=== PATIENT | male | born 1955 | race Caucasian/White ===

== ENCOUNTER → 2019-03-29 11:45 | Outpatient (CLI) | payer MEDICARE, MEDICAID, SELFPAY ==
--- NOTE | 2019-03-29 11:57 | XR_ITS ---
PROCEDURE: XR ABDOMEN MIN 2V CLINICAL INDICATION: pain Left-sided abdominal pain COMPARISON: No exams were available for comparison FINDINGS: There is no free air within nonspecific abdominal gas pattern. There are multiple fractures of posterior right ribs favored to be subacute to chronic. There is lack of bony healing of some of the fractures. Dual electrode pacemaker is in place. Vascular calcifications are noted. IMPRESSION: Nonspecific gas pattern. Dictated by: Johnnie Avila 03/29/2019 14:29 Electronically signed by Johnnie Avila in [place] 03/29/2019 14:29
== END ==
PROVIDERS: PCP Nurse Practitioner Family; Visit Provider Nurse Practitioner Family
DX: R10.12 Left upper quadrant pain (principal); Z76.89 Persons encountering health services in other specified circumstances
CPT/HCPCS: 74019

== ENCOUNTER → 2019-04-04 08:03 | Outpatient (CLI) | payer MEDICARE, SELFPAY ==
--- NOTE | 2019-04-04 08:10 | US_ITS ---
PROCEDURE: US ABDOMEN COMPLETE CLINICAL INDICATION: luq pain Left upper quadrant pain COMPARISON: No exams were available for comparison FINDINGS: The exam is technically difficult due to patient's body habitus. PANCREAS: Poor visualization of the pancreas LIVER: No focal liver lesions demonstrated. Homogeneous echogenicity. No intrahepatic biliary ductal dilatation evident. There is appropriate direction of blood flow within a non dilated portal vein RIGHT KIDNEY: Unremarkable. Normal size and echogenicity. No hydronephrosis LEFT KIDNEY: Unremarkable. Normal size and echogenicity. No hydronephrosis GALLBLADDER: No gallstones, gallbladder wall thickening, pericholecystic fluid, or biliary dilatation. AORTA: No evidence of aneurysmal dilatation. SPLEEN: The spleen is not demonstrated ASCITES: None demonstrated. IMPRESSION: Very limited exam with poor demonstration of the organs due to body habitus and overlying bowel gas. There is poor visualization of the pancreas and the spleen is not demonstrated. No gross acute anomalies are evident. Consider CT for further evaluation Dictated by: Misbah Braun MD 04/04/2019 17:20 Electronically signed by Misbah Braun MD in [place] 04/04/2019 17:20
== END ==
PROVIDERS: PCP Nurse Practitioner Family; Visit Provider Emergency Medicine
DX: R10.12 Left upper quadrant pain (principal)
CPT/HCPCS: 76700

== ENCOUNTER → 2019-04-15 14:57 | Outpatient (CLI) | payer MEDICARE, SELFPAY ==
--- NOTE | 2019-04-15 14:58 | CT_ITS ---
PROCEDURE: CT ABDOMEN PELVIS WO CON CLINICAL INDICATION: LLQ pain, left-sided abdominal pain COMPARISON: No exams were available for comparison TECHNIQUE: Axial images obtained with sagittal and coronal reformats. All CT scans at the facility use one or more dose reduction, viz: automated exposure control, ma/kV adjustment per patient size (including targeted exams where dose is matched to indication, i.e. head), or iterative reconstruction technique. FINDINGS: LOWER THORAX: A 5 mm subpleural nodules present in the right lower lobe posterior laterally with some patchy density present anterior to this region adjacent to an old rib fracture which is ununited. There are other old rib fractures in the right lower hemithorax involving the right 11th, 10th, 9th, 8th, and 7th ribs. Coronary artery calcification is present. There is a small hiatal hernia. ABDOMEN & PELVIS: Artifact is present from cardiac pacemaker device. There is mild thickening of the distal esophagus with a small hiatal hernia noted. Gallbladder is contracted. The liver, spleen, adrenal glands, and pancreas have an unremarkable appearance. No renal or ureteral calculi or hydronephrosis. Vascular calcifications involve the kidneys. No intestinal obstruction or free air. No evidence of appendicitis or diverticulitis. There is mild thickening of the descending and sigmoid colon. This could be due to nondistention or colitis. There are scattered sigmoid diverticula. No acute bony findings. IMPRESSION: 1. Thickening of the descending and sigmoid colon which may be due to nondistention versus colitis. 2. Hiatal hernia with mild thickening of the distal esophagus which may implicate esophagitis. Upper endoscopy may confirm. 3. 5 mm right lower lobe nodule with atelectatic or fibrotic change and multiple old right-sided rib fractures. 4. Coronary artery disease Dictated by: Misbah Braun MD 04/16/2019 08:38 Electronically signed by Misbah Braun MD in [place] 04/16/2019 08:38
== END ==
PROVIDERS: PCP Nurse Practitioner Family; Visit Provider Emergency Medicine
DX: R10.32 Left lower quadrant pain (principal); R10.9 Unspecified abdominal pain
CPT/HCPCS: 74176

== ENCOUNTER → 2019-07-26 14:30 | Outpatient (CLI) | payer MEDICARE, SELFPAY ==
--- NOTE | 2019-07-26 14:38 | FL_ITS ---
PROCEDURE: FL BARIUM SWALLOW CLINICAL INDICATION: ESOPHAGEAL DYSPHAGIA COMPARISON: No exams were available for comparison TECHNIQUE: In the upright position the patient was observed to swallow barium in both the AP and lateral view. The cervical esophagus was examined under fluoroscopy with images obtained. The patient was then placed prone in the right anterior oblique position and was observed to swallow barium with Valsalva technique . FLUOROSCOPY TIME: 1 minutes 49 seconds FINDINGS: There is high-grade narrowing of the distal esophagus with irregularity of the mucosa. A malignant stricture is considered. The narrowing slightly decreases on delayed imaging. This area of narrowing measures approximately 5 cm in length there is no evidence of obstruction to liquid contrast at this time. There is a small hiatal hernia. There is a shelf like area of narrowing along the anterior aspect of the distal esophagus suspicious for neoplasm. In addition, there is some mucosal irregularity involving the mid aspect of the esophagus posteriorly which could be inflammatory or neoplastic. This is approximately 7 cm proximal to the area of narrowing distally. IMPRESSION: Irregular narrowing of the distal aspect of the esophagus with a shelf-like filling defect anteriorly and distally suspicious for neoplasm. There was not complete obstruction. In addition there is some mucosal irregularity involving the posterior aspect of the mid thoracic esophagus which could be due to an additional area of neoplasm. Endoscopy is suggested for further evaluation. The report was called to the primary care provider and the patient was instructed to return immediately for further instructions. Dictated by: Misbah Braun MD 07/26/2019 15:29 Electronically signed by Misbah Braun MD in [place] 07/26/2019 15:29
== END ==
PROVIDERS: PCP Nurse Practitioner Family; Visit Provider Nurse Practitioner Family
DX: R13.10 Dysphagia, unspecified (principal)
CPT/HCPCS: 74220

== ENCOUNTER → 2019-08-02 09:39 | Outpatient (CLI) | payer MEDICARE, SELFPAY ==
[2019-08-02 11:03] LABS: Coronavirus 19 IgG Antibody Negative (Negative); Coronavirus 19 IgM Antibody Negative (Negative)
== END ==
PROVIDERS: Visit Provider Internal Medicine Gastroenterology
DX: Z01.818 Encounter for other preprocedural examination (principal)
CPT/HCPCS: 36415; 86328

== ENCOUNTER 2019-08-05 12:22 | Day surgery (SDC) | payer MEDICARE, SELFPAY ==
--- NOTE | 2019-08-01 11:03 | SUR.PREOP ---
08/01/2019 @ 3685--PHONE CALL MADE TO PATIENT. PATIENT UNDERSTANDS THAT LAB WORK AND COVID TESTING NEEDS TO BE COMPLETED @ 0915 ON 08/02/2019. PATIENT UNDERSTANDS IF LAB WORK AND COVID-19 TESTS ARE NOT COMPLETED BY 12PM ON THAT DATE, THE SURGERY SCHEDULED WILL BE CANCELLED AND RESCHEDULED FOR ANOTHER TIME.
[2019-08-01 13:43] VITALS: BMI 27.8
[2019-08-05] VITALS (9 sets, daily range): BP systolic 99–159; BP diastolic 61–94; PULSE 67–82; RESP 18; TEMP 36.1–36.3; O2SAT 96–100
--- NOTE | 2019-08-05 13:53 | HMH.PROC ---
[facility] Procedure Note Procedure Note:: Upper Endoscopy Procedure Report: Esophagogastroduodenoscopy with cold biopsies and TTS balloon dilation Endoscopost: Naveen Corado II, MD Referring Physician: MARIAH Calero Date of Procedure: August 05, 2019 Equipment: Olympus GIF 180 standard upper endoscope Sedation: MAC sedation Indications: Mr. Li is a 63-year-old gentleman with the acute onset of dysphagia over the last 2 or 3 weeks. This is primarily to solid foods (breads and meats). He reports no heartburn or reflux. He has had minimal weight loss. He did have GERD years ago but none recently. The patient does smoke (2 packs per day x53 years) and beer (sixpack over a day). This is his first upper endoscopy. Procedure: Prior to the procedure, a history and physical exam was performed, and patient's medications and allergies were reviewed. The risks, benefits and alternatives of the sedation and procedure were discussed with the patient. All questions were answered and informed consent was obtained. The patient was brought to the procedure room. Patient identification and proposed procedure were verified by the physician and the nurse. The patient was placed in a left lateral decubitus position and the scope was passed under direct vision. Throughout the procedure, the patient's blood pressure, pulse, and oxygen saturations were monitored continuously. The upper GI endoscopy was accomplished without difficulty. The patient tolerated the procedure well. Findings: The scope was passed directly into the upper esophagus and advanced to the third portion of the duodenum. The post bulbar duodenum and duodenal bulb were normal with normal mucosa and conniventes. The scope was withdrawn through a normal duodenal bulb and pylorus into the stomach. There was some mild linear reactive gastropathy of the antrum. The remainder of the antrum, body and fundus of the stomach were grossly normal. Upon retroflexion there was a 2 to 3 cm hiatal hernia. The endoscope was then withdrawn into the esophagus. There was a friable and fungating mass lesion that was distal. The diaphragmatic hiatus was at 42-43 cm. The GE junction was at 40 cm with the mass beginning at the GE junction and extending more proximally. Multiple biopsies were taken from this region of distal esophagus at 39-40 cm. The scope was withdrawn further and there was obvious Painting's esophagus with the Z line/squamocolumnar junction at 30 cm from the incisors leaving a 9 or 10 cm segment of Painting's esophagus (Sumerduck classification C10M10). There was a slightly raised area of 1-1/2 cm near the Z line that was rounded and appeared to be plateaued (probable second area of more proximal adenocarcinoma arising within Painting's). There was no reflux esophagitis. The distal circumferential esophageal mass was biopsied and then this region was dilated to 18 mm/54 Maltese with a TTS hydrostatic balloon. The remainder of the proximal esophagus was normal from 30 cm from the incisors proximally to the cricopharyngeus. Impression: 1. Distal esophageal circumferential fungating malignant stricture arising with Painting's esophagus?strongly suspect esophageal adenocarcinoma status post dilation to 18 mm 2. Painting's esophagus 10 cm (long segment) (Sumerduck classification [id number]) Plan: The patient does have a larger esophageal mass lesion in the distal esophagus and may have multifocal dysplasia or even a second adenocarcinoma arising within a 10 cm segment of Painting's esophagus. I am going to plan CT imaging study today of the chest, abdomen and pelvis. I will follow-up the biopsies and discuss findings with patient and family. If this is operable/resectable, I am going to send him to thoracic surgery (Dr. Reuben Fox at the [facility]). If imaging studies show metastatic disease, I will send the patient to oncology. He will likely need gastrostomy feeding tube versus esopha
--- NOTE | 2019-08-05 13:53 | HMH.ANESCL ---
[facility] Anesthesia Checklist - Patient Identification Patient Identification: Arm Band, Verbal (Name & ) - Structural Data Admitted From: Home Planned Operative Procedure/s: EGD Consent for Planned Operative Procedure(s) Verified: Yes Verified Documents: Surgical Consent, History and Physical - NPO Status Verified Time NPO: 00:00 - Chart Verification Results Verified: None (serology) - Additional verifications Patient : No Anesthesia Reactions: No - Airway Assessment C-Spine Mobility Assessed: Yes TMJ Mobility Assessed: Yes Dentition: Poor Dentition - Neurological Assessment Level of Consciousness: Awake, Alert, Appropriate, Follows Commands Hx Seizures: No Numbness or tingling in extremities: No - Anesthesia Plan Anesthesia Risk discussed: Yes Anesthesia Plan: Verified ASA Class: III Anesthesia Type: MAC [facility] History I have reviewed the patient's past medical history: Yes Medical History: Reports:: Arrhythmia, Atrial Fibrillation, Coronary Artery Disease, Hyperlipidemia, Hypertension, Internal Pacemaker Denies:: Cancer, Diabetes Mellitus Type 1, Diabetes Mellitus Type 2, MRSA, Seizures *Have you ever received a pneumonia vaccine?: No *Have you received a flu vaccine this season?: No Anesthesia experience/problems:: none Other Surgeries: Yes: Cardiac Catheterization, Colonoscopy, Coronary Stent, Pacemaker Amputation: No Fractures: No - *Social History Educational Level: Completed High School Smoking Status: Current every day smoker Tobacco Type: cigarettes # Packs/Day (cigarettes): 2 Alcohol Intake: current Alcohol Intake Frequency:: 3 or more drinks per day Substance Use Type: denies use *Occupational Status:: disabled Housing: house Household Members: significant other *Travel in the last 8 weeks: None Family Hx:: Coronary Artery Disease, Heart Attack, Hyperlipidemia, Hypertension
--- NOTE | 2019-08-05 14:15 | CT_ITS ---
PROCEDURE: CT CHEST W CON CLINCAL INDICATION: Barretts esophagus Painting's esophagus, soft Jewel cancer COMPARISON: CT ABDOMEN PELVIS WO CON from 04/15/2019 CT ABDOMEN PELVIS W CON from 08/05/2019 TECHNIQUE: IV Contrast: 75ml Optiray 350 Axial images obtained with sagittal and coronal reformats. All CT scans at the facility use one or more dose reduction, viz: automated exposure control, ma/kV adjustment per patient size (including targeted exams where dose is matched to indication, i.e. head), or iterative reconstruction technique. FINDINGS: There is moderate thickening of the distal esophagus. This begins approximately 10 cm proximal to the GE junction involving the distal 1/2 of the thoracic esophagus with severe narrowing of the lumen and marked mucosal thickening. There is a small hiatal hernia. A small nodular density is present left lateral to the distal esophagus image 51 series 4 measuring 10 mm and may represent a small paraesophageal lymph node. There are few small gastroesophageal lymph nodes there are few small nodes in the subcarinal region. No hilar mass is evident. Artifact is present from cardiac pacemaker. Coronary artery calcifications and/or stents are noted. No obvious extra esophageal direct extension into the mediastinum however, the wall is somewhat obscured posteriorly and distally. There are centrilobular emphysematous changes with scattered areas of pulmonary fibrosis. A 7 mm subpleural opacity is present in the right lower lobe posterior laterally. This may be very slightly larger previously measuring 5 mm. There is a 5 mm nodule in the right lower lobe posteriorly image 64 series 4 previously 4 mm. There are multiple old right-sided rib fractures. There is an additional 6 mm noncalcified nodule in the right lower lobe posteriorly image 50 series 4 there is an irregular 6 mm nodule in the left apex. There is a subpleural 6 mm nodule in the left lower lobe image 30 series 4. A 4 mm nodules present in the superior segment of left lower lobe and may contain some faint calcification. There is a 3 mm nodule in the left upper lobe image 15 series 4. No effusions or infiltrates. No acute bony findings. There are old fractures of the right 9th a and 7th ribs. No bony destructive process apparent IMPRESSION: 1. Moderate wall thickening of the distal 1/2 of the thoracic esophagus suspicious for malignancy. Partially collapsed hiatal hernia with esophagitis would be included in the differential diagnosis. There however does appear to be moderate narrowing of the distal lumen of the esophagus just before the GE junction. This would correspond to the area of narrowing noted on the recent barium swallow. 2. Mildly prominent paraesophageal nodes in the posterior mediastinum which could represent local lalitha spread of malignancy. PET CT may provide further evaluation. 3. Noncalcified bilateral pulmonary nodules. There is a 7 mm nodule in the right lower lobe previously measuring 5 mm. These could represent metastatic foci. PET CT may provide further evaluation. Dictated by: Misbah Braun MD 08/05/2019 20:08 Electronically signed by Misbah Braun MD in [place] 08/05/2019 20:08
--- NOTE | 2019-08-05 14:15 | CT_ITS ---
PROCEDURE: CT ABDOMEN PELVIS W CON CLINICAL INDICATION: Barretts esophagus Esophageal cancer COMPARISON: CT ABDOMEN PELVIS WO CON from 04/15/2019 TECHNIQUE: IV Contrast: 75ML OPTIRAY 350 Oral Contrast 20ml Gastroview Axial images obtained with sagittal and coronal reformats. All CT scans at the facility use one or more dose reduction, viz: automated exposure control, ma/kV adjustment per patient size (including targeted exams where dose is matched to indication, i.e. head), or iterative reconstruction technique. FINDINGS: Please see chest CT report for esophageal description. There is moderate thickening of the mid and distal aspect of the esophagus with luminal narrowing distally suspicious for esophageal cancer with hiatal hernia. There is a small left paraesophageal lymph node in the posterior mediastinum on the left measuring approximately 1.5 x 0.8 cm. This node was barely perceptible on the previous exam. There are some small gastroesophageal lymph nodes present. The liver, gallbladder, spleen, right adrenal gland, and pancreas have an unremarkable appearance. The left adrenal gland is enlarged at 1.9 by 1.6 cm. There was only minimal nodularity of the left adrenal gland on the previous exam. The kidneys have an unremarkable appearance. No intestinal obstruction or free air. Unremarkable appendix. No pelvic mass or abnormal fluid collection. There is colonic diverticulosis but no evidence of diverticulitis. No bony destructive process is evident. Atherosclerotic changes are present at the ostium of the SMA and celiac artery. IMPRESSION: 1. Distal esophageal wall thickening with masslike appearance and luminal narrowing suspicious for esophageal malignancy with mildly prominent left para esophageal lymph node. 2. Enlarged left adrenal gland suspicious for metastatic disease. Consider PET-CT for further evaluation. 3. Please see chest CT report for lower chest findings. Dictated by: Misbah Braun MD 08/05/2019 20:19 Electronically signed by Misbah Braun MD in [place] 08/05/2019 20:19
[2019-08-05 14:58] LABS: Blood Urea Nitrogen 5 mg/dl (9-20); Creatinine Clearance Estimated 92 mL/min (50-200); Estimated Glomerular Filt Rate 113 ml/min (>60); GFR (African American) 137 ML/MIN (>60)
== END 2019-08-05 15:30 | disposition home or self-care (01) ==
LOC: OUTP 12:24
PROVIDERS: PCP Family Medicine; Visit Provider Internal Medicine Gastroenterology
PROC: 0DJ08ZZ Inspection of Upper Intestinal Tract, Via Natural or Artificial Opening Endoscopic (ICD-10-PCS; CPT 43235; principal; 2019-08-05 13:30)
DX: C15.5 Malignant neoplasm of lower third of esophagus (principal); K22.719 Barrett's esophagus with dysplasia, unspecified; I25.10 Atherosclerotic heart disease of native coronary artery without angina pectoris; I48.91 Unspecified atrial fibrillation; E78.5 Hyperlipidemia, unspecified; I10 Essential (primary) hypertension; Z72.0 Tobacco use; Z72.89 Other problems related to lifestyle; Z95.0 Presence of cardiac pacemaker; Z87.39 Personal history of other diseases of the musculoskeletal system and connective tissue; Z79.899 Other long term (current) drug therapy
CPT/HCPCS: 43239; 43249; 36415; 71260; 74177; 82565; 84520; 88305; C1726; Q9967

== ENCOUNTER → 2019-08-21 14:42 | Outpatient (CLI) | payer MEDICARE, SELFPAY ==
[2019-08-21 15:15] LABS: Basophils % 0.2 % (0.1-2.0); Eosinophils # 0.1 K/mm3 (0.0-0.4); Eosinophils % 0.7 % (0.1-12.0); Hematocrit 40.1 % (42.0-52.0); Hemoglobin 13.6 g/dL (14.1-18.0); Lymphocytes # 1.6 K/mm3 (0.7-4.5); Lymphocytes % 15.7 % (10-50); Mean Corpuscular HGB Conc 33.9 g/dL (31.8-35.4); Mean Corpuscular Hemoglobin 33.8 pg (27.0-31.2); Mean Corpuscular Volume 99.7 fl (80-94); Monocytes # 0.7 K/mm3 (0.1-1.0); Monocytes % 6.9 % (1.7-9.3); Neutrophils # 7.9 K/mm3 (1.8-7.8); Neutrophils % 76.5 % (37.0-80.0); Platelet Count 255 K/mm3 (142-424); Red Blood Count 4.02 M/mm3 (4.60-6.20); Red Cell Distribution Width 14.1 % (11.5-17.5); White Blood Count 10.3 K/mm3 (4.8-10.8)
[2019-08-21 15:44] LABS: Alanine Aminotransferase 21 U/L (12-78); Albumin Level 4.7 g/dl (3.5-5.0); Albumin/Globulin Ratio 1.5 (1.1-1.8); Alkaline Phosphatase 63 U/L (38-126); Anion Gap 17.5 mEq/L (5-15); Aspartate Amino Transferase 28 U/L (17-59); Bilirubin,Total 0.8 mg/dl (0.2-1.3); Blood Urea Nitrogen 7 mg/dl (9-20); Calcium 10.5 mg/dl (8.4-10.2); Carbon Dioxide 22 mmol/L (22.0-30.0); Chloride 100 mmol/L (98-107); Estimated Glomerular Filt Rate 97 ml/min (>60); GFR (African American) 117 ML/MIN (>60); Globulin 3.1 g/dL (1.3-3.2); Glucose 104 mg/dl (74-100); Potassium 4.5 mmoL/L (3.5-5.1); Sodium 135 mmol/L (136-145); Total Protein,Serum 7.8 g/dl (6.3-8.2)
[2019-08-21 15:45] LABS: INR 1.08 (0.9-1.1)
[2019-08-21 16:26] LABS: Coronavirus 19 IgG Antibody Negative (Negative); Coronavirus 19 IgM Antibody Negative (Negative)
== END ==
PROVIDERS: Visit Provider Surgery
DX: Z01.818 Encounter for other preprocedural examination (principal); C15.9 Malignant neoplasm of esophagus, unspecified; C79.9 Secondary malignant neoplasm of unspecified site; Z51.81 Encounter for therapeutic drug level monitoring
CPT/HCPCS: 36415; 80053; 85025; 85610; 86328

== ENCOUNTER 2019-08-23 08:38 | Day surgery (SDC) | payer MEDICARE, SELFPAY ==
[2019-08-22 15:06] VITALS: BMI 24.5
[2019-08-23] VITALS (13 sets, daily range): BP systolic 110–148; BP diastolic 58–102; PULSE 60–78; RESP 15–23; TEMP 36.4–36.7; O2SAT 95–98
--- NOTE | 2019-08-23 10:32 | HMH.ANESCL ---
[facility] Anesthesia Checklist - Patient Identification Patient Identification: Arm Band, Verbal (Name & ) - Structural Data Admitted From: Home Planned Operative Procedure/s: port a cath Consent for Planned Operative Procedure(s) Verified: Yes Verified Documents: History and Physical - NPO Status Verified Time NPO: 00:00 - Chart Verification Results Verified: CBC, BMP - Additional verifications Patient : No Anesthesia Reactions: No Hx Blood Transfusions: No Blood Transfusion Reaction: No Cephalosporin Allergy: No Previous Colonoscopy: No - Cardiovascular Assessment Heart Sounds: S1 & S2 Pulse Strength: Baseline Pulse Rhythm: Regular Peripheral Edema: No - Airway Assessment C-Spine Mobility Assessed: Yes TMJ Mobility Assessed: Yes Dentition: Poor Dentition - Neurological Assessment Level of Consciousness: Awake, Alert, Appropriate Hx Seizures: No Numbness or tingling in extremities: No - Anesthesia Plan Anesthesia Risk discussed: Yes Anesthesia Plan: Verified ASA Class: III Anesthesia Type: General [facility] History I have reviewed the patient's past medical history: Yes Medical History: Reports:: Arrhythmia, Atrial Fibrillation, Cancer (LUNG), Coronary Artery Disease, Hyperlipidemia, Hypertension, Internal Pacemaker Denies:: Diabetes Mellitus Type 1, Diabetes Mellitus Type 2, MRSA, Seizures *Have you ever received a pneumonia vaccine?: Yes *Have you received a flu vaccine this season?: No Other Medical History: Denies: Blood Transfusion Reaction Anesthesia experience/problems:: none Other Surgeries: Yes: Cardiac Catheterization, Colonoscopy, Coronary Stent, Pacemaker Amputation: No Fractures: No - *Social History Educational Level: Completed High School Smoking Status: Current every day smoker Tobacco Type: cigarettes # Packs/Day (cigarettes): 2 Alcohol Intake: never Alcohol Intake Frequency:: 3 or more drinks per day Substance Use Type: denies use *Occupational Status:: disabled Housing: house Household Members: significant other *Travel in the last 8 weeks: None Family Hx:: Cancer, Coronary Artery Disease
--- NOTE | 2019-08-23 10:57 | P.OP_ITS ---
Date of procedure: 08/23/19 Pre-op Diagnosis:: Metastatic esophageal adenocarcinoma Post-op Diagnosis:: Same Procedure performed:: Port-A-Cath placement (right subclavian vein access) Surgeon:: Marlon Molina MD SUPERVISOR TELEVISION CHASSIS REPAIR:: Paolo Morales Anesthesia: LMA Estimated blood loss (mL): 5 Operative findings:: Port flushed easily with heparinized saline Operative note:: After informed consent was obtained the patient was taken to the operating room and placed in the supine position. General anesthesia was induced and his chest and neck were prepped and draped in a sterile fashion. After infiltration local anesthetic a large-bore needle was utilized to access the right subclavian vein. The guidewire was placed in position. A transverse incision was then made at the guidewire exit site. The subcutaneous pocket for the port was then created with electrocautery and blunt dissection. The dilator with attached sheath was placed over the guidewire. Fluoroscopy was utilized to confirm appropriate advancement. The dilator and guidewire were removed. The port catheter was then placed through the sheath and confirmed fluoroscopically. The catheter was cut to appropriate length and secured to the port hub. The port hub was secured to the underlying fascia with interrupted Prolene. The deep subcutaneous tissue was reapproximated with interrupted Vicryl. Skin was then closed with 4-0 Monocryl in a running subcuticular fashion. The port was flushed with 10 mL of heparinized saline. Dressings were applied and the patient was transferred to recovery in stable condition. Chest x-ray is pending. Condition: stable Disposition: PACU Specimens:: None Complications:: no immediate
--- NOTE | 2019-08-23 11:01 | XR_ITS ---
PROCEDURE: XR CHEST PORTABLE CLINICAL HISTORY: port-a-cath placement COMPARISON: CT CHEST W CON from 08/05/2019 FINDINGS: The lung ritter are well expanded and appear clear of infiltrate. There is no pleural fluid. Cardiac size is normal and vascularity is normal. The right-sided Port-A-Cath is seen entering the right subclavian vein with the tip in the SVC above the right atrium. The left-sided cardiac pacemaker is noted with dual chamber electrodes both in good position. There is no pneumothorax. IMPRESSION: Satisfactory position of Port-A-Cath Dictated by: Dr. Jesse Lakhani MD 08/23/2019 11:[address] Jesse Lakhani MD in [place] 08/23/2019 11:35
--- NOTE | 2019-08-23 11:02 | HMH.ANESI ---
[facility] Anesthesia Record Part I Intake, IV Amount: 500 Estimated blood loss (mL): 10 Urine output (mL): 0 Blood Products used (#): none Blood Pressure: 122/60 SaO2: 96 Pulse Rate: 78 Respiratory Rate: 18 Temperature: 97.6 F Patient is:: Drowsy, Stable Stable to PACU at:: 11:00
--- NOTE | 2019-08-23 11:26 | FL_ITS ---
PROCEDURE: FL GUIDED CENTRAL LINE PLACEMT CLINICAL INDICATION: PORTACATH PLACEMENT IN OR COMPARISON: XR CHEST PORTABLE from 08/23/2019 FINDINGS: Fluoroscopy time: 1 minutes and 45 seconds Fluoro utilized for placement of a MediPort catheter from right subclavian approach. IMPRESSION: Fluoro guided catheter placement Dictated by: Misbah Braun MD 08/23/2019 16:12 Electronically signed by Misbah Braun MD in [place] 08/23/2019 16:12
--- NOTE | 2019-08-23 11:54 | P.PN_ITS ---
[facility] Anesthesia Record Part II Discharge Time: 11:30 Destination: Surgical Day Care (OP Surgery) PACU nurse assessment reviewed?: Yes Patient Condition:: Good Anesthesia Complications:: None Swallowing reflex intact?: Yes Cyanosis?: No Blood Pressure: 110/60 Pulse Rate: 64 Temperature: 97.7 F Mental Status: Alert & Oriented Pain level:: 0 Nausea and/or vomitting:: None, Nauseated Intake, IV Amount: 25
== END 2019-08-23 12:20 | disposition home or self-care (01) ==
LOC: OR 08:39
PROVIDERS: PCP Family Medicine; Visit Provider Surgery
PROC: (CPT 36561; principal; 2019-08-23 10:00)
DX: C15.9 Malignant neoplasm of esophagus, unspecified (principal); C34.90 Malignant neoplasm of unspecified part of unspecified bronchus or lung; I25.10 Atherosclerotic heart disease of native coronary artery without angina pectoris; I10 Essential (primary) hypertension; E78.5 Hyperlipidemia, unspecified; Z95.0 Presence of cardiac pacemaker; Z72.0 Tobacco use; E55.9 Vitamin D deficiency, unspecified; Z79.899 Other long term (current) drug therapy
CPT/HCPCS: 36561; 71045; 77001; 96374; C1788; J0131; J1642

== ENCOUNTER 2019-08-29 08:45 | Outpatient (CLI) | payer MEDICARE, SELFPAY ==
[2019-08-29] VITALS (7 sets, daily range): BP systolic 120–144; BP diastolic 70–86; PULSE 68–76; RESP 18; TEMP 36.6; O2SAT 97–98
== END 2019-08-29 12:40 | disposition home or self-care (01) ==
LOC: INF 09:10
PROVIDERS: Visit Provider Internal Medicine Medical Oncology
DX: Z51.11 Encounter for antineoplastic chemotherapy (principal); C15.9 Malignant neoplasm of esophagus, unspecified
CPT/HCPCS: 96413; 96415; J1642; J9263; Q0166

== ENCOUNTER 2019-09-19 08:39 | Outpatient (CLI) | payer MEDICARE, SELFPAY ==
[2019-09-19] VITALS (12 sets, daily range): BP systolic 111–150; BP diastolic 61–77; PULSE 60–84; RESP 18–20; O2SAT 99–100; BMI 25.9
[2019-09-19 09:00] LABS: Basophils % 0.2 % (0.1-2.0); Eosinophils # 0.1 K/mm3 (0.0-0.4); Hemoglobin 12.9 g/dL (14.1-18.0); Lymphocytes # 1.3 K/mm3 (0.7-4.5); Lymphocytes % 18.2 % (10-50); Mean Corpuscular Hemoglobin 35.5 pg (27.0-31.2); Mean Corpuscular Volume 104.6 fl (80-94); Mean Platelet Volume 8.3 fl (7.4-10.4); Monocytes # 0.6 K/mm3 (0.1-1.0); Monocytes % 8.3 % (1.7-9.3); Neutrophils % 71.2 % (37.0-80.0); Platelet Count 168 K/mm3 (142-424); Red Blood Count 3.63 M/mm3 (4.60-6.20); Red Cell Distribution Width 17.2 % (11.5-17.5)
[2019-09-19 09:06] LABS: Alanine Aminotransferase 27 U/L (12-78); Albumin/Globulin Ratio 1.2 (1.1-1.8); Alkaline Phosphatase 88 U/L (38-126); Anion Gap 11.1 mEq/L (5-15); Aspartate Amino Transferase 42 U/L (17-59); Bilirubin,Total 1.1 mg/dl (0.2-1.3); Blood Urea Nitrogen 4 mg/dl (9-20); Calcium 9.3 mg/dl (8.4-10.2); Carbon Dioxide 25 mmol/L (22.0-30.0); Chloride 103 mmol/L (98-107); Creatinine Clearance Estimated 84 mL/min (50-200); Estimated Glomerular Filt Rate 135 ml/min (>60); GFR (African American) 163 ML/MIN (>60); Globulin 3.3 g/dL (1.3-3.2); Glucose 81 mg/dl (74-100); Potassium 4.1 mmoL/L (3.5-5.1); Sodium 135 mmol/L (136-145); Total Protein,Serum 7.3 g/dl (6.3-8.2)
[2019-09-20 15:22] VITALS: BMI 25.9
== END 2019-09-19 13:45 | disposition home or self-care (01) ==
LOC: INF 08:39
PROVIDERS: Visit Provider Internal Medicine Medical Oncology
DX: C76.0 Malignant neoplasm of head, face and neck (principal); Z51.11 Encounter for antineoplastic chemotherapy
CPT/HCPCS: 80053; 85025; 96413; 96415; J1642; J9263; Q0166

== ENCOUNTER 2019-10-10 09:12 | Outpatient (CLI) | payer MEDICARE, SELFPAY ==
[2019-10-10] VITALS (8 sets, daily range): BP systolic 119–141; BP diastolic 65–75; PULSE 59–64; RESP 18; TEMP 36.6; O2SAT 94–96; BMI 25.2
[2019-10-10 09:27] LABS: Basophils % 0.2 % (0.1-2.0); Eosinophils # 0.1 K/mm3 (0.0-0.4); Eosinophils % 1.9 % (0.1-12.0); Hematocrit 39.3 % (42.0-52.0); Hemoglobin 13.3 g/dL (14.1-18.0); Lymphocytes # 1.5 K/mm3 (0.7-4.5); Mean Corpuscular HGB Conc 33.8 g/dL (31.8-35.4); Mean Corpuscular Hemoglobin 36.6 pg (27.0-31.2); Mean Corpuscular Volume 108.3 fl (80-94); Mean Platelet Volume 8.6 fl (7.4-10.4); Monocytes # 0.6 K/mm3 (0.1-1.0); Monocytes % 9.4 % (1.7-9.3); Neutrophils # 4.1 K/mm3 (1.8-7.8); Neutrophils % 64.5 % (37.0-80.0); Platelet Count 185 K/mm3 (142-424); Red Blood Count 3.63 M/mm3 (4.60-6.20); Red Cell Distribution Width 19.4 % (11.5-17.5); White Blood Count 6.4 K/mm3 (4.8-10.8)
[2019-10-10 09:37] LABS: Alanine Aminotransferase 26 U/L (12-78); Albumin/Globulin Ratio 1.2 (1.1-1.8); Alkaline Phosphatase 82 U/L (38-126); Anion Gap 13.1 mEq/L (5-15); Aspartate Amino Transferase 40 U/L (17-59); Bilirubin,Total 0.8 mg/dl (0.2-1.3); Blood Urea Nitrogen 3 mg/dl (9-20); Calcium 9.2 mg/dl (8.4-10.2); Carbon Dioxide 26 mmol/L (22.0-30.0); Chloride 100 mmol/L (98-107); Creatinine Clearance Estimated 82 mL/min (50-200); Estimated Glomerular Filt Rate 135 ml/min (>60); GFR (African American) 163 ML/MIN (>60); Globulin 3.3 g/dL (1.3-3.2); Glucose 92 mg/dl (74-100); Potassium 4.1 mmoL/L (3.5-5.1); Sodium 135 mmol/L (136-145); Total Protein,Serum 7.3 g/dl (6.3-8.2)
== END 2019-10-10 13:50 | disposition home or self-care (01) ==
LOC: INF 09:12
PROVIDERS: Visit Provider Internal Medicine Medical Oncology
DX: Z51.11 Encounter for antineoplastic chemotherapy (principal); C15.9 Malignant neoplasm of esophagus, unspecified
CPT/HCPCS: 80053; 85025; 96413; 96415; J1642; J9263; Q0166

== ENCOUNTER 2019-10-29 09:39 | Outpatient (CLI) | payer MEDICARE, SELFPAY ==
[2019-10-29 09:26] VITALS: BMI 24.0
--- NOTE | 2019-10-29 09:42 | CT_ITS ---
PROCEDURE: CT ABDOMEN PELVIS W CON CLINICAL INDICATION: ESOPHAGEAL CANCER Esophageal cancer recieving chemo every 2 weeks COMPARISON: CT CT ABDOMEN PELVIS W CON from 08/05/2019 TECHNIQUE: IV Contrast: 75ML OPTIRAY 350 Oral Contrast None Axial images obtained with sagittal and coronal reformats. All CT scans at the facility use one or more dose reduction, viz: automated exposure control, ma/kV adjustment per patient size (including targeted exams where dose is matched to indication, i.e. head), or iterative reconstruction technique. FINDINGS: There is mild diffuse fatty liver infiltration. The gallbladder is contracted. The spleen has an unremarkable appearance. There is a left adrenal nodule which measures 14 x 12 mm previously measuring 19 x 16 mm. The pancreas and right adrenal gland and kidneys are unremarkable. There remains thickening of the distal esophagus and at the GE junction. This appears slightly less bulky compared to the previous study. Previously there was a small left-sided paraesophageal lymph node which is does appear slightly smaller. No intestinal obstruction or free air. No evidence of appendicitis or diverticulitis. There is some mild thickening of the colon involving the splenic flexure, descending colon sigmoid colon, and rectum which could be due to nondistention or colitis. No pelvic mass or abnormal fluid collection apparent. No acute bony anomalies. IMPRESSION: 1. The left adrenal nodule is slightly smaller as is the small left paraesophageal lymph node. The thickened distal esophagus and GE junction also appears slightly less bulky. These findings would suggest improvement in esophageal neoplasm and metastasis 2. Fatty liver. 3. Possible colitis versus nondistention of the splenic flexure, descending colon sigmoid colon and rectum Dictated by: Misbah Braun MD 10/30/2019 09:28 Misbah Braun MD in [facility] 10/30/2019 09:28
[2019-10-29 09:44] LABS: Basophils % 0.3 % (0.1-2.0); Eosinophils # 0.1 K/mm3 (0.0-0.4); Eosinophils % 1.8 % (0.1-12.0); Hematocrit 37.4 % (42.0-52.0); Hemoglobin 12.9 g/dL (14.1-18.0); Lymphocytes # 1.4 K/mm3 (0.7-4.5); Lymphocytes % 18.4 % (10-50); Mean Corpuscular HGB Conc 34.4 g/dL (31.8-35.4); Mean Corpuscular Hemoglobin 38.1 pg (27.0-31.2); Mean Corpuscular Volume 110.9 fl (80-94); Mean Platelet Volume 8.6 fl (7.4-10.4); Monocytes # 0.9 K/mm3 (0.1-1.0); Monocytes % 11.5 % (1.7-9.3); Neutrophils # 5.1 K/mm3 (1.8-7.8); Platelet Count 180 K/mm3 (142-424); Red Blood Count 3.37 M/mm3 (4.60-6.20); White Blood Count 7.4 K/mm3 (4.8-10.8)
[2019-10-29 09:49] LABS: Chloride 104 mmol/L (98-107); Potassium 3.9 mmoL/L (3.5-5.1); Sodium 136 mmol/L (136-145)
[2019-10-29 09:52] LABS: Alanine Aminotransferase 28 U/L (12-78); Albumin Level 3.9 g/dl (3.5-5.0); Albumin/Globulin Ratio 1.1 (1.1-1.8); Alkaline Phosphatase 78 U/L (38-126); Anion Gap 11.9 mEq/L (5-15); Aspartate Amino Transferase 47 U/L (17-59); Bilirubin,Total 0.9 mg/dl (0.2-1.3); Blood Urea Nitrogen 5 mg/dl (9-20); Calcium 9.4 mg/dl (8.4-10.2); Carbon Dioxide 24 mmol/L (22.0-30.0); Creatinine Clearance Estimated 78 mL/min (50-200); Estimated Glomerular Filt Rate 135 ml/min (>60); GFR (African American) 163 ML/MIN (>60); Globulin 3.5 g/dL (1.3-3.2); Glucose 85 mg/dl (74-100); Total Protein,Serum 7.4 g/dl (6.3-8.2)
--- NOTE | 2019-10-29 10:08 | CT_ITS ---
PROCEDURE: CT CHEST W CON CLINCAL INDICATION: ESOPHAGEAL CANCER Esopheageal ca, on chemo COMPARISON: CT CT CHEST W CON from 08/05/2019 TECHNIQUE: IV Contrast: 75ml Optiray 350 Axial images obtained with sagittal and coronal reformats. All CT scans at the facility use one or more dose reduction, viz: automated exposure control, ma/kV adjustment per patient size (including targeted exams where dose is matched to indication, i.e. head), or iterative reconstruction technique. FINDINGS: There are a few small mediastinal lymph nodes in the pretracheal area and precarinal area which are not significantly changed. There remains thickening of the distal 1/2 of the esophagus to the GE junction. This appears somewhat less bulky at the GE junction. There are some small subcarinal lymph nodes which are slightly more prominent. These however are less than 1 cm in short axis. A small left para esophageal lymph node previously identified is not readily apparent on today's exam. There are centrilobular emphysematous changes with COPD. There are mild atelectatic changes in the lung bases. Previously there was a 6 mm nodule in the right lower lobe posteriorly. This area is somewhat obscured by the underlying atelectasis. In the left upper lobe there is a small irregular opacity measuring approximately 6 mm unchanged the faint 3 mm nodule in the left upper lobe posteriorly is unchanged. In the superior segment of the left lower lobe there is a 3 mm nodule which does appear to represent a calcified granuloma. In the left lower lobe posteriorly there was a 6 mm nodule which is not significantly changed in size but is less dense compared to the previous study. The 7 mm subpleural nodule in the right lower lobe posterior laterally is not readily apparent on today's exam.. 5 mm nodule in the right lower lobe posteriorly is also not identified. There are some adult 8 changes in this region however. There are multiple old right-sided rib fractures. No acute bony findings are evident. There is a bipolar pacemaker present from left subclavian approach and there is a right subclavian Port-A-Cath with tip in the region the SVC. IMPRESSION: 1. Continued thickening of the distal 1/2 of the esophagus and at the GE junction consistent with esophageal neoplasm which may be slightly less bulky. 2. The small left paraesophageal lymph node and several pulmonary nodules are less apparent than when compared to the previous exam suggesting some improvement in possible esophageal metastatic disease Dictated by: Misbah Braun MD 10/30/2019 08:42 Misbah Braun MD in [facility] 10/30/2019 08:42
== END 2019-10-29 10:32 | disposition home or self-care (01) ==
LOC: RAD 09:39
PROVIDERS: PCP Family Medicine; Visit Provider Internal Medicine Medical Oncology
DX: C15.9 Malignant neoplasm of esophagus, unspecified (principal)
CPT/HCPCS: 71260; 74177; 80053; 85025; J1642; Q9967

== ENCOUNTER 2019-11-14 09:56 | Outpatient (CLI) | payer MEDICARE, SELFPAY ==
[2019-11-14] VITALS (15 sets, daily range): BP systolic 129–154; BP diastolic 66–86; PULSE 59–66; RESP 18; TEMP 36.1; O2SAT 98; BMI 24.5
[2019-11-14 10:25] LABS: Basophils % 0.3 % (0.1-2.0); Eosinophils # 0.2 K/mm3 (0.0-0.4); Hematocrit 37.8 % (42.0-52.0); Lymphocytes # 1.4 K/mm3 (0.7-4.5); Lymphocytes % 17.5 % (10-50); Mean Corpuscular HGB Conc 34.3 g/dL (31.8-35.4); Mean Corpuscular Hemoglobin 39.1 pg (27.0-31.2); Mean Corpuscular Volume 113.8 fl (80-94); Mean Platelet Volume 8.9 fl (7.4-10.4); Monocytes # 0.8 K/mm3 (0.1-1.0); Monocytes % 10.3 % (1.7-9.3); Neutrophils # 5.5 K/mm3 (1.8-7.8); Neutrophils % 69.9 % (37.0-80.0); Platelet Count 148 K/mm3 (142-424); Red Blood Count 3.32 M/mm3 (4.60-6.20); Red Cell Distribution Width 19.5 % (11.5-17.5); White Blood Count 7.8 K/mm3 (4.8-10.8)
[2019-11-14 10:31] LABS: Chloride 103 mmol/L (98-107); Potassium 4.2 mmoL/L (3.5-5.1); Sodium 134 mmol/L (136-145)
[2019-11-14 10:34] LABS: Alanine Aminotransferase 28 U/L (12-78); Albumin Level 3.6 g/dl (3.5-5.0); Albumin/Globulin Ratio 1.1 (1.1-1.8); Alkaline Phosphatase 88 U/L (38-126); Anion Gap 10.2 mEq/L (5-15); Aspartate Amino Transferase 42 U/L (17-59); Bilirubin,Total 1.3 mg/dl (0.2-1.3); Blood Urea Nitrogen 4 mg/dl (9-20); Calcium 9.2 mg/dl (8.4-10.2); Carbon Dioxide 25 mmol/L (22.0-30.0); Creatinine Clearance Estimated 80 mL/min (50-200); Estimated Glomerular Filt Rate 135 ml/min (>60); GFR (African American) 163 ML/MIN (>60); Globulin 3.4 g/dL (1.3-3.2); Glucose 103 mg/dl (74-100)
== END 2019-11-14 15:30 | disposition home or self-care (01) ==
LOC: INF 09:56
PROVIDERS: Visit Provider Internal Medicine Medical Oncology
DX: Z51.11 Encounter for antineoplastic chemotherapy (principal); C15.9 Malignant neoplasm of esophagus, unspecified; E11.9 Type 2 diabetes mellitus without complications; E55.9 Vitamin D deficiency, unspecified; E78.5 Hyperlipidemia, unspecified; I25.10 Atherosclerotic heart disease of native coronary artery without angina pectoris
CPT/HCPCS: 80053; 85025; 96413; 96415; J1642; J9263; Q0166

== ENCOUNTER 2019-12-05 08:58 | Outpatient (CLI) | payer MEDICARE, SELFPAY ==
[2019-12-05] VITALS (14 sets, daily range): BP systolic 113–147; BP diastolic 57–84; PULSE 59–60; RESP 16–20; TEMP 36.7; O2SAT 97–98; BMI 24.5
[2019-12-05 09:21] LABS: Chloride 104 mmol/L (98-107)
[2019-12-05 09:22] LABS: Basophils % 0.2 % (0.1-2.0); Eosinophils # 0.2 K/mm3 (0.0-0.4); Hematocrit 37.8 % (42.0-52.0); Hemoglobin 13.2 g/dL (14.1-18.0); Lymphocytes # 1.2 K/mm3 (0.7-4.5); Lymphocytes % 17.6 % (10-50); Mean Corpuscular HGB Conc 34.8 g/dL (31.8-35.4); Mean Corpuscular Volume 115.2 fl (80-94); Mean Platelet Volume 8.3 fl (7.4-10.4); Monocytes # 0.8 K/mm3 (0.1-1.0); Monocytes % 11.7 % (1.7-9.3); Neutrophils # 4.5 K/mm3 (1.8-7.8); Neutrophils % 67.5 % (37.0-80.0); Platelet Count 138 K/mm3 (142-424); Potassium 4.1 mmoL/L (3.5-5.1); Red Blood Count 3.28 M/mm3 (4.60-6.20); Red Cell Distribution Width 19.6 % (11.5-17.5); Sodium 135 mmol/L (136-145); White Blood Count 6.7 K/mm3 (4.8-10.8)
[2019-12-05 09:23] LABS: Mean Corpuscular Hemoglobin 40.1 pg (27.0-31.2)
[2019-12-05 09:24] LABS: Alanine Aminotransferase 27 U/L (12-78); Aspartate Amino Transferase 42 U/L (17-59); Bilirubin,Total 1.1 mg/dl (0.2-1.3); Blood Urea Nitrogen 6 mg/dl (9-20); Creatinine Clearance Estimated 80 mL/min (50-200); Estimated Glomerular Filt Rate 135 ml/min (>60); GFR (African American) 163 ML/MIN (>60)
[2019-12-05 09:25] LABS: Albumin Level 3.7 g/dl (3.5-5.0); Albumin/Globulin Ratio 1.1 (1.1-1.8); Alkaline Phosphatase 81 U/L (38-126); Anion Gap 9.1 mEq/L (5-15); Calcium 9.2 mg/dl (8.4-10.2); Carbon Dioxide 26 mmol/L (22.0-30.0); Globulin 3.3 g/dL (1.3-3.2); Glucose 103 mg/dl (74-100)
== END 2019-12-05 14:08 | disposition home or self-care (01) ==
LOC: INF 08:58
PROVIDERS: Visit Provider Internal Medicine Medical Oncology
DX: Z51.11 Encounter for antineoplastic chemotherapy (principal); C15.4 Malignant neoplasm of middle third of esophagus
CPT/HCPCS: 80053; 85025; 96413; 96415; J1642; J9263; Q0166

== ENCOUNTER 2019-12-23 10:07 | Outpatient (CLI) | payer MEDICARE, SELFPAY ==
[2019-12-23 09:48] VITALS: BMI 23.9
[2019-12-23 10:22] LABS: Eosinophils # 0.1 K/mm3 (0.0-0.4); Hematocrit 38.9 % (42.0-52.0); Hemoglobin 12.9 g/dL (14.1-18.0); Lymphocytes # 1.2 K/mm3 (0.7-4.5); Lymphocytes % 17.6 % (10-50); Mean Corpuscular HGB Conc 33.1 g/dL (31.8-35.4); Mean Corpuscular Hemoglobin 38.9 pg (27.0-31.2); Mean Corpuscular Volume 117.3 fl (80-94); Mean Platelet Volume 8.5 fl (7.4-10.4); Monocytes # 0.9 K/mm3 (0.1-1.0); Monocytes % 13.6 % (1.7-9.3); Neutrophils # 4.6 K/mm3 (1.8-7.8); Neutrophils % 66.7 % (37.0-80.0); Platelet Count 129 K/mm3 (142-424); Red Blood Count 3.31 M/mm3 (4.60-6.20); Red Cell Distribution Width 18.7 % (11.5-17.5); White Blood Count 6.9 K/mm3 (4.8-10.8)
[2019-12-23 10:25] LABS: Chloride 97 mmol/L (98-107); Potassium 3.9 mmoL/L (3.5-5.1); Sodium 132 mmol/L (136-145)
[2019-12-23 10:27] LABS: Blood Urea Nitrogen 4 mg/dl (9-20); Creatinine Clearance Estimated 78 mL/min (50-200); Estimated Glomerular Filt Rate 135 ml/min (>60); GFR (African American) 163 ML/MIN (>60)
--- NOTE | 2019-12-23 10:27 | CT_ITS ---
PROCEDURE: CT ABDOMEN PELVIS W CON CLINICAL INDICATION: ESOPAGEAL CANCER Patient previously on chemotherapy, not clear from the current history sheet whether the patient still is on chemotherapy COMPARISON: CT CT ABDOMEN PELVIS W CON from 10/29/2019 TECHNIQUE: IV Contrast: 75ML OPTIRAY 350 Oral Contrast 20ml Gastroview Axial images obtained with sagittal and coronal reformats. All CT scans at the facility use one or more dose reduction, viz: automated exposure control, ma/kV adjustment per patient size (including targeted exams where dose is matched to indication, i.e. head), or iterative reconstruction technique. FINDINGS: Lower thorax: Possible very mild interstitial fibrotic changes in the subpleural zones of the lower lobes bilaterally. There is no acute infiltrate and there is no pleural fluid. Cardiac size is normal, there are pacemaker electrodes noted. ABDOMEN: Liver: The liver is normal in size and again shows diffuse hypodensity consistent with fatty infiltration. There are no focal lesions. Gallbladder: The gallbladder is partially contracted, similar in appearance and size to the previous study with no obvious gallstones or sludge. Pancreas: No masses or peripancreatic fluid collections. Spleen: unremarkable Adrenals: The hypodense left adrenal lesion is stable and unchanged from the previous exam. This likely is an adenoma. Kidneys/ureters: The kidneys are normal in size and show symmetrical function both appearing normal. ABDOMEN & PELVIS: Stomach bowel: The diffuse wall thickening of the distal esophagus is again noted and it appears basically stable when compared to the previous study. There is no definite abnormal paraesophageal adenopathy. The stomach and duodenal sweep appear normal. The small bowel is unremarkable. There is moderate oral contrast mixed with stool in the cecum and ascending colon. There is moderate stool in the descending and sigmoid colon. Peritoneum: No abnormal fluid collections. No obvious inflammatory changes. No free air. Lymph nodes: No enlarged lymph nodes apparent. Vasculature: There is marked diffuse arthrosclerotic calcification of the abdominal aorta and proximal common iliac arteries and bilateral superficial femoral arteries but there is no aneurysm. Bones: No acute fracture there are no definite lytic or blastic lesions identified. PELVIS: Reproductive: unremarkable Bladder: The urinary bladder is partially decompressed but otherwise appears normal. The prostate appears normal except for a couple of calcifications. Appendix: Normal in caliber and partially air-filled with no inflammatory changes. IMPRESSION: Stable diffuse slightly bulky wall thickening distal esophagus with no abnormal para esophageal adenopathy. Stable diffuse hepatic steatosis without evidence of metastatic disease. Dictated by: Dr. Jesse Lakhani MD 12/24/2019 09:31 Dr. Jesse Lakhani MD in [facility] 12/24/2019 09:31
--- NOTE | 2019-12-23 10:27 | CT_ITS ---
PROCEDURE: CT CHEST W CON CLINCAL INDICATION: ESOPHAGEAL CANCER Follow-up esophageal cancer COMPARISON: CT CT CHEST W CON from 10/29/[address] ABDOMEN PELVIS W CON from 12/23/2019 TECHNIQUE: IV Contrast: 75ml Optiray 350 Axial images obtained with sagittal and coronal reformats. All CT scans at the facility use one or more dose reduction, viz: automated exposure control, ma/kV adjustment per patient size (including targeted exams where dose is matched to indication, i.e. head), or iterative reconstruction technique. FINDINGS: HEART AND MEDIASTINAL STRUCTURES: This scattered small nodes are present in the mediastinum as before not significantly changed. There is mild diffuse thickening of the esophagus similar to the previous exam. This is greatest at the distal aspect of the esophagus at the GE junction. There are 2 small nodes anterior is to the mid aspect of the esophagus which may be slightly less prominent. LUNGS AND PLEURAL SPACES: COPD with emphysematous changes and scattered areas of scarring with pulmonary fibrosis. There has been interval development of some linear increased density in the left apex consistent with scarring or atelectatic change. There is a 5 mm nodule in the left upper lobe anteriorly which is not significantly changed. MediPort catheter is present from the right subclavian approach BONY STRUCTURES: Old right 7th 8th and 9th 10th rib fractures. No acute bony findings. UPPER ABDOMEN: Unremarkable. ADDITIONAL FINDINGS: No other significant abnormalities. IMPRESSION: Mild diffuse thickening of the esophagus greatest at the distal esophagus and GE junction not significantly changed. There are 2 paraesophageal lymph nodes anteriorly which appear very slightly smaller. No new findings evident. Stable pulmonary nodular opacities. Dictated by: Misbah Braun MD 12/24/2019 07:46 Misbah Braun MD in [place] 12/24/2019 07:46
[2019-12-23 10:28] LABS: Alanine Aminotransferase 27 U/L (12-78); Albumin Level 3.6 g/dl (3.5-5.0); Alkaline Phosphatase 100 U/L (38-126); Anion Gap 11.9 mEq/L (5-15); Aspartate Amino Transferase 48 U/L (17-59); Bilirubin,Total 1.1 mg/dl (0.2-1.3); Calcium 9.3 mg/dl (8.4-10.2); Carbon Dioxide 27 mmol/L (22.0-30.0); Globulin 3.6 g/dL (1.3-3.2); Glucose 93 mg/dl (74-100); Total Protein,Serum 7.2 g/dl (6.3-8.2)
== END 2019-12-23 10:50 | disposition home or self-care (01) ==
LOC: RAD 10:08
PROVIDERS: PCP Family Medicine; Visit Provider Internal Medicine Medical Oncology
DX: C15.9 Malignant neoplasm of esophagus, unspecified (principal)
CPT/HCPCS: 71260; 74177; 80053; 85025; J1642

== ENCOUNTER 2019-12-27 09:54 | Outpatient (CLI) | payer MEDICARE, SELFPAY ==
[2019-12-27] VITALS (8 sets, daily range): BP systolic 109–134; BP diastolic 62–74; PULSE 60–75; RESP 18; TEMP 36.4; O2SAT 97–98
== END 2019-12-27 14:34 | disposition home or self-care (01) ==
LOC: INF 09:54
PROVIDERS: Visit Provider Internal Medicine Medical Oncology
DX: Z51.11 Encounter for antineoplastic chemotherapy (principal); C15.9 Malignant neoplasm of esophagus, unspecified
CPT/HCPCS: 96413; 96415; J1642; J9263; Q0166

== ENCOUNTER 2020-02-06 09:49 | Outpatient (CLI) | payer MEDICARE, SELFPAY ==
[2020-02-06] VITALS (7 sets, daily range): BP systolic 117–130; BP diastolic 61–69; PULSE 64–69; RESP 18; TEMP 36.4; O2SAT 98–99; BMI 23.8
[2020-02-06 10:09] LABS: Basophils % 0.3 % (0.1-2.0); Eosinophils # 0.1 K/mm3 (0.0-0.4); Eosinophils % 1.7 % (0.1-12.0); Hematocrit 38.8 % (42.0-52.0); Hemoglobin 12.9 g/dL (14.1-18.0); Lymphocytes # 1.3 K/mm3 (0.7-4.5); Lymphocytes % 19.4 % (10-50); Mean Corpuscular HGB Conc 33.2 g/dL (31.8-35.4); Monocytes # 0.6 K/mm3 (0.1-1.0); Monocytes % 9.4 % (1.7-9.3); Neutrophils # 4.5 K/mm3 (1.8-7.8); Neutrophils % 69.3 % (37.0-80.0); Platelet Count 135 K/mm3 (142-424); Red Blood Count 3.13 M/mm3 (4.60-6.20); Red Cell Distribution Width 19.4 % (11.5-17.5); White Blood Count 6.5 K/mm3 (4.8-10.8)
[2020-02-06 10:15] LABS: Chloride 101 mmol/L (98-107); Sodium 133 mmol/L (136-145)
[2020-02-06 10:18] LABS: Alanine Aminotransferase 23 U/L (12-78); Albumin Level 3.8 g/dl (3.5-5.0); Albumin/Globulin Ratio 1.1 (1.1-1.8); Alkaline Phosphatase 102 U/L (38-126); Aspartate Amino Transferase 44 U/L (17-59); Blood Urea Nitrogen 5 mg/dl (9-20); Carbon Dioxide 27 mmol/L (22.0-30.0); Creatinine Clearance Estimated 77 mL/min (50-200); Estimated Glomerular Filt Rate 113 ml/min (>60); GFR (African American) 137 ML/MIN (>60); Globulin 3.5 g/dL (1.3-3.2); Total Protein,Serum 7.3 g/dl (6.3-8.2)
[2020-02-06 10:19] LABS: Calcium 9.2 mg/dl (8.4-10.2); Glucose 93 mg/dl (74-100)
[2020-02-06 10:24] LABS: Mean Corpuscular Hemoglobin 41.1 pg (27.0-31.2)
== END 2020-02-06 14:45 | disposition home or self-care (01) ==
LOC: INF 09:49
PROVIDERS: Visit Provider Internal Medicine Medical Oncology
DX: Z51.11 Encounter for antineoplastic chemotherapy (principal); C15.9 Malignant neoplasm of esophagus, unspecified
CPT/HCPCS: 80053; 85025; 96413; 96415; J1642; J9263; Q0166

== ENCOUNTER → 2020-03-04 10:05 | Outpatient (CLI) | payer MEDICARE, SELFPAY ==
--- NOTE | 2020-03-04 10:09 | XR_ITS ---
PROCEDURE: XR CERVICAL SPINE 5V CLINICAL INDICATION: NECK PAIN COMPARISON: Cervical spine 12/05/2012 Findings: There is straightening of normal curvature suggesting muscle spasm. C1 through C7 appear intact. There is possibly 2 mm anterior subluxation of C3 on C4 likely secondary to arthritic changes of the apophyseal joints this level. There is disc space narrowing at the C5-6 and C6-7 levels with mild anterior osteophytic spurring. These changes were seen previously but there has been interval progression of the disc space narrowing. There is mild neural foraminal narrowing at the C5-6 and C6-7 levels bilaterally secondary to degenerative changes and probable spurring of the uncinate joints. The prevertebral soft tissues are normal. The odontoid is partially obscured on the odontoid view but appears normal on the oblique views and lateral views. IMPRESSION: Interval progression of degenerative changes C5-6 and C6-7 with mild bilateral neural foraminal narrowing at these levels. Dictated by: Dr. Jesse Lakhani MD 03/04/2020 11:38 Dr. Jesse Lakhani MD in [facility] 03/04/2020 11:38
== END ==
PROVIDERS: PCP Family Medicine; Visit Provider Family Medicine
DX: M54.2 Cervicalgia (principal)
CPT/HCPCS: 72050

== ENCOUNTER 2020-03-12 09:35 | Outpatient (CLI) | payer MEDICARE, SELFPAY ==
[2020-03-12] VITALS (13 sets, daily range): BP systolic 123–149; BP diastolic 69–84; PULSE 57–72; RESP 16–18; TEMP 36.3; BMI 22.7
[2020-03-12 10:12] LABS: Basophils % 0.3 % (0.1-2.0); Eosinophils # 0.1 K/mm3 (0.0-0.4); Eosinophils % 0.9 % (0.1-12.0); Hematocrit 38.3 % (42.0-52.0); Lymphocytes # 1.5 K/mm3 (0.7-4.5); Lymphocytes % 22.4 % (10-50); Mean Corpuscular HGB Conc 31.3 g/dL (31.8-35.4); Mean Corpuscular Volume 124.5 fl (80-94); Mean Platelet Volume 9.2 fl (7.4-10.4); Monocytes # 0.5 K/mm3 (0.1-1.0); Monocytes % 7.7 % (1.7-9.3); Neutrophils # 4.7 K/mm3 (1.8-7.8); Neutrophils % 68.6 % (37.0-80.0); Platelet Count 174 K/mm3 (142-424); Red Blood Count 3.08 M/mm3 (4.60-6.20); Red Cell Distribution Width 17.6 % (11.5-17.5); White Blood Count 6.9 K/mm3 (4.8-10.8)
[2020-03-12 10:20] LABS: Alanine Aminotransferase 31 U/L (12-78); Albumin Level 3.7 g/dl (3.5-5.0); Alkaline Phosphatase 94 U/L (38-126); Aspartate Amino Transferase 45 U/L (17-59); Bilirubin,Total 0.8 mg/dl (0.2-1.3); Blood Urea Nitrogen 5 mg/dl (9-20); Calcium 9.7 mg/dl (8.4-10.2); Carbon Dioxide 29 mmol/L (22.0-30.0); Chloride 99 mmol/L (98-107); Creatinine Clearance Estimated 76 mL/min (50-200); Estimated Glomerular Filt Rate 113 ml/min (>60); GFR (African American) 137 ML/MIN (>60); Globulin 3.8 g/dL (1.3-3.2); Glucose 85 mg/dl (74-100); Sodium 134 mmol/L (136-145); Total Protein,Serum 7.5 g/dl (6.3-8.2)
== END 2020-03-12 15:40 | disposition home or self-care (01) ==
LOC: INF 09:38
PROVIDERS: Visit Provider Internal Medicine Medical Oncology
DX: Z51.11 Encounter for antineoplastic chemotherapy (principal); C15.9 Malignant neoplasm of esophagus, unspecified
CPT/HCPCS: 80053; 85025; 96413; 96415; J9263; Q0166

== ENCOUNTER 2020-03-31 09:23 | Outpatient (CLI) | payer MEDICARE, SELFPAY ==
[2020-03-31 09:15] VITALS: BMI 22.8
--- NOTE | 2020-03-31 09:31 | CT_ITS ---
PROCEDURE: CT ABDOMEN PELVIS WO/W CON CLINICAL INDICATION: ESOPHAGEAL CA F/u, Currently on chemo 75ml iso 370, redicat COMPARISON: CT CT ABDOMEN PELVIS WO CON from 04/15/[address] ABDOMEN PELVIS W CON from 12/23/2019 TECHNIQUE: IV Contrast: 75ML Isovue 370 Oral Contrast None Axial images obtained with sagittal and coronal reformats. All CT scans at the facility use one or more dose reduction, viz: automated exposure control, ma/kV adjustment per patient size (including targeted exams where dose is matched to indication, i.e. head), or iterative reconstruction technique. FINDINGS: There remains mild diffuse thickening of the distal esophagus and GE junction. The liver, spleen, and right adrenal gland have an unremarkable appearance. There is mild nodularity of the left adrenal gland which appear stable. Pancreas and the kidneys have an unremarkable appearance. Unremarkable appendix. No intestinal obstruction or free air. There is a mild amount of retained colonic feces. Scattered colonic diverticula but no evidence of diverticulitis. There is mild thickening of the urinary bladder wall which is nonspecific. No lytic or blastic changes of the bony structures. There is generalized atherosclerotic changes of the aortoiliac vessels. IMPRESSION: Overall stable CT appearance of the abdomen and pelvis. No change mild generalized thickening of the distal esophagus and GE junction. Dictated by: Misbah Braun MD 04/01/2020 12:23 Misbah Braun MD in [facility] 04/01/2020 12:23
--- NOTE | 2020-03-31 09:31 | CT_ITS ---
PROCEDURE: CT CHEST WO/W CON CLINCAL INDICATION: ESOPHAGEAL CA F/u Currently on chemo 75ml iso 370 redicat COMPARISON: CT CT CHEST W CON from 12/23/2019 TECHNIQUE: IV Contrast: 75ml Isovue 370 Axial images obtained with sagittal and coronal reformats. All CT scans at the facility use one or more dose reduction, viz: automated exposure control, ma/kV adjustment per patient size (including targeted exams where dose is matched to indication, i.e. head), or iterative reconstruction technique. FINDINGS: HEART AND MEDIASTINAL STRUCTURES: Cardiac pacemaker device is present from left subclavian approach. Coronary artery stent and or coronary artery calcification noted. There is concentric thickening the mid and lower aspect of the esophagus similar to the previous exam. There are few small subcarinal lymph nodes which are unchanged. Small nodes anterior to the mid aspect the esophagus are not significantly changed. LUNGS AND PLEURAL SPACES: COPD with pulmonary fibrotic changes are once again noted. There are scattered areas of scarring which are unchanged. No suspicious pulmonary nodules apparent. Previously noted atelectatic changes in the left upper lobe have improved. 5 mm left apical nodule unchanged. MediPort catheter remains in place. The BONY STRUCTURES: Old right-sided rib fractures once again noted. UPPER ABDOMEN: Unremarkable. ADDITIONAL FINDINGS: No other significant abnormalities. IMPRESSION: Overall no change in the appearance of the chest. There remains mild diffuse thickening of the esophagus greatest at the distal aspect at the GE junction not significantly changed. Dictated by: Misbah Braun MD 04/01/2020 12:01 Misbah Braun MD in [facility] 04/01/2020 12:01
[2020-03-31 09:37] LABS: Chloride 103 mmol/L (98-107); Potassium 3.7 mmoL/L (3.5-5.1); Sodium 134 mmol/L (136-145)
[2020-03-31 09:40] LABS: Alanine Aminotransferase 16 U/L (12-78); Albumin Level 3.7 g/dl (3.5-5.0); Alkaline Phosphatase 96 U/L (38-126); Anion Gap 10.7 mEq/L (5-15); Aspartate Amino Transferase 29 U/L (17-59); Bilirubin,Total 0.8 mg/dl (0.2-1.3); Blood Urea Nitrogen 6 mg/dl (9-20); Carbon Dioxide 24 mmol/L (22.0-30.0); Creatinine Clearance Estimated 74 mL/min (50-200); Estimated Glomerular Filt Rate 135 ml/min (>60); GFR (African American) 163 ML/MIN (>60); Globulin 3.8 g/dL (1.3-3.2); Total Protein,Serum 7.5 g/dl (6.3-8.2)
[2020-03-31 09:41] LABS: Calcium 9.4 mg/dl (8.4-10.2); Glucose 100 mg/dl (74-100)
== END 2020-03-31 10:38 | disposition home or self-care (01) ==
LOC: RAD 09:23
PROVIDERS: PCP Family Medicine; Visit Provider Internal Medicine Medical Oncology
DX: C15.9 Malignant neoplasm of esophagus, unspecified (principal); Z03.89 Encounter for observation for other suspected diseases and conditions ruled out
CPT/HCPCS: 71270; 74178; 80053; J1642; Q9967

== ENCOUNTER 2020-04-09 09:33 | Outpatient (CLI) | payer MEDICARE, SELFPAY ==
[2020-04-09 09:35] VITALS: BMI 22.9
[2020-04-09 09:54] LABS: Basophils % 0.3 % (0.1-2.0); Eosinophils # 0.1 K/mm3 (0.0-0.4); Eosinophils % 1.2 % (0.1-12.0); Hematocrit 36.4 % (42.0-52.0); Hemoglobin 11.5 g/dL (14.1-18.0); Lymphocytes # 1.9 K/mm3 (0.7-4.5); Lymphocytes % 22.7 % (10-50); Mean Corpuscular HGB Conc 31.6 g/dL (31.8-35.4); Mean Corpuscular Hemoglobin 38.4 pg (27.0-31.2); Mean Corpuscular Volume 121.8 fl (80-94); Mean Platelet Volume 8.7 fl (7.4-10.4); Monocytes # 0.8 K/mm3 (0.1-1.0); Monocytes % 10.4 % (1.7-9.3); Neutrophils # 5.3 K/mm3 (1.8-7.8); Neutrophils % 65.4 % (37.0-80.0); Platelet Count 166 K/mm3 (142-424); Red Blood Count 2.99 M/mm3 (4.60-6.20); Red Cell Distribution Width 16.3 % (11.5-17.5); White Blood Count 8.1 K/mm3 (4.8-10.8)
[2020-04-09 10:01] LABS: Chloride 111 mmol/L (98-107); Potassium 3.7 mmoL/L (3.5-5.1); Sodium 137 mmol/L (136-145)
[2020-04-09 10:04] LABS: Alanine Aminotransferase 18 U/L (12-78); Albumin Level 3.9 g/dl (3.5-5.0); Alkaline Phosphatase 79 U/L (38-126); Anion Gap 8.7 mEq/L (5-15); Aspartate Amino Transferase 35 U/L (17-59); Bilirubin,Total 0.8 mg/dl (0.2-1.3); Blood Urea Nitrogen 4 mg/dl (9-20); Calcium 9.8 mg/dl (8.4-10.2); Carbon Dioxide 21 mmol/L (22.0-30.0); Creatinine Clearance Estimated 75 mL/min (50-200); Estimated Glomerular Filt Rate 135 ml/min (>60); GFR (African American) 163 ML/MIN (>60); Globulin 4.1 g/dL (1.3-3.2); Glucose 100 mg/dl (74-100)
== END 2020-04-09 11:00 | disposition home or self-care (01) ==
LOC: INF 09:33
PROVIDERS: Visit Provider Internal Medicine Medical Oncology
DX: Z45.2 Encounter for adjustment and management of vascular access device (principal); C15.4 Malignant neoplasm of middle third of esophagus
CPT/HCPCS: 80053; 85025; J1642

== ENCOUNTER 2020-04-13 09:20 | Outpatient (CLI) | payer MEDICARE, SELFPAY ==
[2020-04-13] VITALS (7 sets, daily range): BP systolic 136–157; BP diastolic 69–88; PULSE 64–76; RESP 18; TEMP 36.7; O2SAT 99–100
== END 2020-04-13 12:58 | disposition home or self-care (01) ==
LOC: INF 09:20
PROVIDERS: PCP Family Medicine; Visit Provider Internal Medicine Medical Oncology
DX: Z51.11 Encounter for antineoplastic chemotherapy (principal); C15.4 Malignant neoplasm of middle third of esophagus
CPT/HCPCS: 96413; 96415; J1642; J9263; Q0166

== ENCOUNTER 2020-05-01 08:54 | Outpatient (CLI) | payer MEDICARE, SELFPAY ==
[2020-05-01 08:57] VITALS: BMI 22.1
[2020-05-01 09:20] LABS: Basophils % 0.4 % (0.1-2.0); Eosinophils # 0.1 K/mm3 (0.0-0.4); Eosinophils % 1.3 % (0.1-12.0); Hematocrit 33.7 % (42.0-52.0); Hemoglobin 10.6 g/dL (14.1-18.0); Lymphocytes # 1.9 K/mm3 (0.7-4.5); Lymphocytes % 26.9 % (10-50); Mean Corpuscular HGB Conc 31.5 g/dL (31.8-35.4); Mean Corpuscular Hemoglobin 39.2 pg (27.0-31.2); Mean Corpuscular Volume 124.5 fl (80-94); Mean Platelet Volume 8.4 fl (7.4-10.4); Monocytes # 0.6 K/mm3 (0.1-1.0); Monocytes % 8.8 % (1.7-9.3); Neutrophils # 4.5 K/mm3 (1.8-7.8); Neutrophils % 62.6 % (37.0-80.0); Platelet Count 172 K/mm3 (142-424); Red Cell Distribution Width 16.8 % (11.5-17.5); White Blood Count 7.2 K/mm3 (4.8-10.8)
[2020-05-01 09:25] LABS: Chloride 111 mmol/L (98-107); Potassium 3.7 mmoL/L (3.5-5.1); Sodium 138 mmol/L (136-145)
[2020-05-01 09:28] LABS: Alanine Aminotransferase 13 U/L (12-78); Albumin Level 3.6 g/dl (3.5-5.0); Alkaline Phosphatase 60 U/L (38-126); Anion Gap 6.7 mEq/L (5-15); Aspartate Amino Transferase 26 U/L (17-59); Bilirubin,Total 0.6 mg/dl (0.2-1.3); Blood Urea Nitrogen 5 mg/dl (9-20); Calcium 9.3 mg/dl (8.4-10.2); Carbon Dioxide 24 mmol/L (22.0-30.0); Creatinine Clearance Estimated 72 mL/min (50-200); Estimated Glomerular Filt Rate 166 ml/min (>60); GFR (African American) 201 ML/MIN (>60); Globulin 3.7 g/dL (1.3-3.2); Glucose 91 mg/dl (74-100); Total Protein,Serum 7.3 g/dl (6.3-8.2)
== END 2020-05-01 10:15 | disposition home or self-care (01) ==
LOC: INF 08:54
PROVIDERS: Visit Provider Internal Medicine Medical Oncology
DX: C15.9 Malignant neoplasm of esophagus, unspecified (principal); Z45.2 Encounter for adjustment and management of vascular access device
CPT/HCPCS: 80053; 85025; J1642

== ENCOUNTER → 2020-05-11 13:46 | Outpatient (CLI) | payer MEDICARE, SELFPAY ==
--- NOTE | 2020-05-11 13:52 | XR_ITS ---
PROCEDURE: XR RIBS RT MIN 3V W CXR1V CLINICAL INDICATION: FALL, RIB PAIN Right rib pain COMPARISON: CR XR CHEST PORTABLE from 08/23/[address] CHEST WO/W CON from 03/31/2020 FINDINGS: There are multiple old right-sided rib fractures involving the right 7th, 8th, 9th, and 10th ribs. No acute fracture is identified. There is a bipolar pacemaker present from left subclavian approach. MediPort catheter is also present from the right subclavian approach with tip in the region the SVC. There are chronic changes of the lungs with COPD and mild prominence of the interstitium. IMPRESSION: No acute findings. Dictated by: Misbah Braun MD 05/11/2020 15:02 Misbah Braun MD in [facility] 05/11/2020 15:02
== END ==
PROVIDERS: PCP Family Medicine; Visit Provider Family Medicine
DX: R07.81 Pleurodynia (principal); W19.XXXA Unspecified fall, initial encounter
CPT/HCPCS: 71101

== ENCOUNTER 2020-05-29 09:20 | Outpatient (CLI) | payer MEDICARE, SELFPAY ==
[2020-05-29] VITALS (15 sets, daily range): BP systolic 92–159; BP diastolic 59–80; PULSE 59–68; RESP 18–20; TEMP 36.3; O2SAT 100; BMI 21.7
[2020-05-29 10:01] LABS: Basophils % 0.2 % (0.1-2.0); Eosinophils # 0.1 K/mm3 (0.0-0.4); Eosinophils % 0.7 % (0.1-12.0); Hematocrit 33.2 % (42.0-52.0); Hemoglobin 10.8 g/dL (14.1-18.0); Lymphocytes # 2.2 K/mm3 (0.7-4.5); Lymphocytes % 26.2 % (10-50); Mean Corpuscular HGB Conc 32.5 g/dL (31.8-35.4); Mean Corpuscular Hemoglobin 37.4 pg (27.0-31.2); Mean Corpuscular Volume 115.3 fl (80-94); Mean Platelet Volume 8.3 fl (7.4-10.4); Monocytes # 0.7 K/mm3 (0.1-1.0); Monocytes % 8.3 % (1.7-9.3); Neutrophils # 5.4 K/mm3 (1.8-7.8); Neutrophils % 64.6 % (37.0-80.0); Platelet Count 217 K/mm3 (142-424); Red Blood Count 2.88 M/mm3 (4.60-6.20); Red Cell Distribution Width 15.1 % (11.5-17.5); White Blood Count 8.4 K/mm3 (4.8-10.8)
[2020-05-29 10:07] LABS: Alanine Aminotransferase 14 U/L (12-78); Albumin Level 4.1 g/dl (3.5-5.0); Albumin/Globulin Ratio 1.2 (1.1-1.8); Alkaline Phosphatase 70 U/L (38-126); Anion Gap 13.7 mEq/L (5-15); Aspartate Amino Transferase 28 U/L (17-59); Bilirubin,Total 0.8 mg/dl (0.2-1.3); Blood Urea Nitrogen 5 mg/dl (9-20); Calcium 9.6 mg/dl (8.4-10.2); Carbon Dioxide 19 mmol/L (22.0-30.0); Chloride 106 mmol/L (98-107); Creatinine Clearance Estimated 73 mL/min (50-200); Estimated Glomerular Filt Rate 135 ml/min (>60); GFR (African American) 163 ML/MIN (>60); Globulin 3.3 g/dL (1.3-3.2); Glucose 91 mg/dl (74-100); Potassium 3.7 mmoL/L (3.5-5.1); Sodium 135 mmol/L (136-145); Total Protein,Serum 7.4 g/dl (6.3-8.2)
[2020-05-29 10:37] LABS: Thyroid Stimulating Hormone 2.44 uIU/mL (0.465-4.68)
== END 2020-05-29 15:00 | disposition home or self-care (01) ==
LOC: INF 09:29
PROVIDERS: Visit Provider Internal Medicine Medical Oncology
DX: Z51.11 Encounter for antineoplastic chemotherapy (principal); C15.9 Malignant neoplasm of esophagus, unspecified; I51.7 Cardiomegaly; I35.8 Other nonrheumatic aortic valve disorders; I50.30 Unspecified diastolic (congestive) heart failure
CPT/HCPCS: 36415; 80053; 82533; 84443; 85025; 96413; 96415; J1642; J9263; Q0166

== ENCOUNTER 2020-06-18 09:11 | Outpatient (CLI) | payer MEDICARE, SELFPAY ==
[2020-06-18] VITALS (13 sets, daily range): BP systolic 92–120; BP diastolic 51–79; PULSE 60–82; RESP 18; TEMP 36.4; O2SAT 100; BMI 21.9
[2020-06-18 09:26] LABS: Basophils % 0.3 % (0.1-2.0); Eosinophils # 0.1 K/mm3 (0.0-0.4); Eosinophils % 1.4 % (0.1-12.0); Hematocrit 32.1 % (42.0-52.0); Hemoglobin 10.7 g/dL (14.1-18.0); Lymphocytes # 2.1 K/mm3 (0.7-4.5); Lymphocytes % 29.4 % (10-50); Mean Corpuscular HGB Conc 33.3 g/dL (31.8-35.4); Mean Corpuscular Hemoglobin 37.6 pg (27.0-31.2); Mean Corpuscular Volume 112.7 fl (80-94); Mean Platelet Volume 8.2 fl (7.4-10.4); Monocytes # 0.6 K/mm3 (0.1-1.0); Neutrophils # 4.3 K/mm3 (1.8-7.8); Platelet Count 199 K/mm3 (142-424); Red Blood Count 2.85 M/mm3 (4.60-6.20); Red Cell Distribution Width 15.9 % (11.5-17.5); White Blood Count 7.2 K/mm3 (4.8-10.8)
[2020-06-18 09:30] LABS: Chloride 108 mmol/L (98-107); Sodium 137 mmol/L (136-145)
[2020-06-18 09:31] LABS: Potassium 3.9 mmoL/L (3.5-5.1)
[2020-06-18 09:33] LABS: Alanine Aminotransferase 13 U/L (12-78); Albumin/Globulin Ratio 1.2 (1.1-1.8); Alkaline Phosphatase 63 U/L (38-126); Anion Gap 12.9 mEq/L (5-15); Aspartate Amino Transferase 23 U/L (17-59); Bilirubin,Total 0.9 mg/dl (0.2-1.3); Blood Urea Nitrogen 8 mg/dl (9-20); Carbon Dioxide 20 mmol/L (22.0-30.0); Creatinine Clearance Estimated 73 mL/min (50-200); Estimated Glomerular Filt Rate 135 ml/min (>60); GFR (African American) 163 ML/MIN (>60); Globulin 3.3 g/dL (1.3-3.2); Total Protein,Serum 7.3 g/dl (6.3-8.2)
[2020-06-18 09:34] LABS: Calcium 9.4 mg/dl (8.4-10.2); Glucose 93 mg/dl (74-100)
== END 2020-06-18 14:27 | disposition home or self-care (01) ==
LOC: INF 09:11
PROVIDERS: Visit Provider Internal Medicine Medical Oncology
DX: Z51.11 Encounter for antineoplastic chemotherapy (principal); C15.9 Malignant neoplasm of esophagus, unspecified
CPT/HCPCS: 80053; 85025; 96413; 96415; J1642; J9263; Q0166

== ENCOUNTER 2020-07-06 10:00 | Outpatient (CLI) | payer MEDICARE, SELFPAY ==
[2020-07-06 09:47] VITALS: BMI 22.6
--- NOTE | 2020-07-06 10:03 | CT_ITS ---
PROCEDURE: CT CHEST W CON CLINCAL INDICATION: ESOPHAGEAL CANCER Follow up Currently on chemo COMPARISON: CT CT CHEST WO/W CON from 03/31/2020 TECHNIQUE: IV Contrast: 75ml Isovue 370 Axial images obtained with sagittal and coronal reformats. All CT scans at the facility use one or more dose reduction, viz: automated exposure control, ma/kV adjustment per patient size (including targeted exams where dose is matched to indication, i.e. head), or iterative reconstruction technique. FINDINGS: HEART AND MEDIASTINAL STRUCTURES: There remains a few mildly prominent mediastinal lymph nodes the largest in the subcarinal region at 1.9 x 1 cm not significantly changed. There remains mild diffuse thickening of the mid distal aspect of the esophagus also not significantly changed. There is mild diffuse coronary artery calcification and/or stents noted. No evidence of aortic aneurysm or central pulmonary embolus. LUNGS AND PLEURAL SPACES: COPD with paraseptal emphysema and pulmonary fibrotic changes with scattered areas of scarring. No suspicious pulmonary nodules effusions or infiltrates. No change 5 mm left apical nodule BONY STRUCTURES: Old right 10th 9th 8th and 7th rib fractures. No bony destructive process apparent. UPPER ABDOMEN: See abdomen report ADDITIONAL FINDINGS: No other significant abnormalities. IMPRESSION: Overall stable CT appearance of the chest. No change mild diffuse esophageal thickening with mildly prominent mediastinal lymph nodes Pulmonary fibrosis with COPD and paraseptal emphysema. Dictated by: Misbah Braun MD 07/07/2020 09:44 Misbah Braun MD in [facility] 07/07/2020 09:44
--- NOTE | 2020-07-06 10:03 | CT_ITS ---
PROCEDURE: CT ABDOMEN PELVIS W CON CLINICAL INDICATION: ESOPHAGEAL CANCER Follow up Currently on chemo COMPARISON: CT CT ABDOMEN PELVIS WO CON from 04/15/[address] ABDOMEN PELVIS WO/W CON from 03/31/2020 TECHNIQUE: IV Contrast: 75ML Isovue 370 Oral Contrast None Axial images obtained with sagittal and coronal reformats. All CT scans at the facility use one or more dose reduction, viz: automated exposure control, ma/kV adjustment per patient size (including targeted exams where dose is matched to indication, i.e. head), or iterative reconstruction technique. FINDINGS: Mild fatty liver. No focal liver lesion identified. There is mild nodularity in the fundus of the is gallbladder. This area measures approximately 9 mm and may be better evaluated with gallbladder ultrasound. There remains thickening of the distal esophagus and GE junction. The spleen has an unremarkable appearance. There is a left adrenal nodule which is slightly more prominent compared to the previous exam measuring 16 x 16 mm previously measuring approximately 13 x 13 mm. There is heterogeneous enhancement of this nodule. This is suspicious for metastatic focus. The right adrenal gland has an unremarkable appearance. The pancreas appears unremarkable. No renal mass apparent. There is a calcification along the lower pole of the left kidney possibly an arterial calcification however nonobstructing stone is also considered measuring 4-5 mm. No hydronephrosis. No ureteral calculi. No evidence of appendicitis. There is colonic diverticulosis but no evidence of diverticulitis. Calcific plaque is present at the ostium of the celiac and the SMA. No bony destructive process. No lytic or blastic lesions apparent. IMPRESSION: 1. Persistent thickening of the distal esophagus and GE junction not significantly changed. 2. Left adrenal nodule which appears slightly larger with some heterogeneous enhancement suspicious for metastatic focus. 3. Mild nodularity of the fundus of the gallbladder. Consider ultrasound for further evaluation. Dictated by: Misbah Braun MD 07/07/2020 17:41 Misbah Braun MD in [place] 07/07/2020 17:41
[2020-07-06 10:10] LABS: Basophils % 0.2 % (0.1-2.0); Eosinophils # 0.1 K/mm3 (0.0-0.4); Eosinophils % 1.2 % (0.1-12.0); Hematocrit 30.8 % (42.0-52.0); Hemoglobin 10.4 g/dL (14.1-18.0); Lymphocytes # 2.2 K/mm3 (0.7-4.5); Lymphocytes % 28.1 % (10-50); Mean Corpuscular HGB Conc 33.8 g/dL (31.8-35.4); Mean Corpuscular Hemoglobin 38.5 pg (27.0-31.2); Mean Corpuscular Volume 114.2 fl (80-94); Mean Platelet Volume 7.9 fl (7.4-10.4); Monocytes # 0.7 K/mm3 (0.1-1.0); Monocytes % 9.1 % (1.7-9.3); Neutrophils # 4.9 K/mm3 (1.8-7.8); Neutrophils % 61.4 % (37.0-80.0); Platelet Count 174 K/mm3 (142-424); Red Cell Distribution Width 15.7 % (11.5-17.5); White Blood Count 7.9 K/mm3 (4.8-10.8)
[2020-07-06 10:25] LABS: Alanine Aminotransferase 12 U/L (12-78); Albumin Level 4.1 g/dl (3.5-5.0); Albumin/Globulin Ratio 1.2 (1.1-1.8); Alkaline Phosphatase 56 U/L (38-126); Anion Gap 9.9 mEq/L (5-15); Aspartate Amino Transferase 24 U/L (17-59); Bilirubin,Total 0.8 mg/dl (0.2-1.3); Blood Urea Nitrogen 5 mg/dl (9-20); Calcium 9.3 mg/dl (8.4-10.2); Carbon Dioxide 22 mmol/L (22.0-30.0); Chloride 108 mmol/L (98-107); Creatinine Clearance Estimated 73 mL/min (50-200); Estimated Glomerular Filt Rate 135 ml/min (>60); GFR (African American) 163 ML/MIN (>60); Globulin 3.4 g/dL (1.3-3.2); Glucose 85 mg/dl (74-100); Potassium 3.9 mmoL/L (3.5-5.1); Sodium 136 mmol/L (136-145); Total Protein,Serum 7.5 g/dl (6.3-8.2)
== END 2020-07-06 10:50 | disposition home or self-care (01) ==
LOC: RAD 10:00
PROVIDERS: PCP Family Medicine; Visit Provider Internal Medicine Medical Oncology
DX: C15.9 Malignant neoplasm of esophagus, unspecified (principal); Z03.89 Encounter for observation for other suspected diseases and conditions ruled out
CPT/HCPCS: 71260; 74177; 80053; 85025; J1642; Q9967

== ENCOUNTER 2020-07-09 09:25 | Outpatient (CLI) | payer MEDICARE, SELFPAY ==
[2020-07-09] VITALS (13 sets, daily range): BP systolic 115–161; BP diastolic 63–90; PULSE 61–74; RESP 18; TEMP 36.3; O2SAT 99
== END 2020-07-09 13:35 | disposition home or self-care (01) ==
LOC: INF 09:30
PROVIDERS: Visit Provider Internal Medicine Medical Oncology
DX: Z51.11 Encounter for antineoplastic chemotherapy (principal); C15.9 Malignant neoplasm of esophagus, unspecified
CPT/HCPCS: 96413; 96415; J1642; J9263; Q0166

== ENCOUNTER 2020-07-30 08:37 | Outpatient (CLI) | payer MEDICARE, SELFPAY ==
[2020-07-30] VITALS (13 sets, daily range): BP systolic 85–131; BP diastolic 37–78; PULSE 61–77; RESP 16–18; TEMP 36.2; BMI 22.5
[2020-07-30 09:10] LABS: Basophils % 0.3 % (0.1-2.0); Eosinophils # 0.1 K/mm3 (0.0-0.4); Eosinophils % 1.1 % (0.1-12.0); Hematocrit 32.8 % (42.0-52.0); Hemoglobin 11.3 g/dL (14.1-18.0); Lymphocytes % 28.5 % (10-50); Mean Corpuscular HGB Conc 34.3 g/dL (31.8-35.4); Mean Corpuscular Hemoglobin 39.5 pg (27.0-31.2); Mean Platelet Volume 8.5 fl (7.4-10.4); Monocytes # 0.7 K/mm3 (0.1-1.0); Monocytes % 9.9 % (1.7-9.3); Neutrophils # 4.2 K/mm3 (1.8-7.8); Neutrophils % 60.3 % (37.0-80.0); Platelet Count 172 K/mm3 (142-424); Red Blood Count 2.86 M/mm3 (4.60-6.20); Red Cell Distribution Width 16.1 % (11.5-17.5)
[2020-07-30 09:17] LABS: Alanine Aminotransferase 11 U/L (12-78); Albumin Level 4.3 g/dl (3.5-5.0); Albumin/Globulin Ratio 1.2 (1.1-1.8); Alkaline Phosphatase 51 U/L (38-126); Anion Gap 10.3 mEq/L (5-15); Aspartate Amino Transferase 26 U/L (17-59); Bilirubin,Total 0.9 mg/dl (0.2-1.3); Blood Urea Nitrogen 5 mg/dl (9-20); Calcium 9.4 mg/dl (8.4-10.2); Carbon Dioxide 23 mmol/L (22.0-30.0); Chloride 109 mmol/L (98-107); Creatinine Clearance Estimated 73 mL/min (50-200); Estimated Glomerular Filt Rate 113 ml/min (>60); GFR (African American) 137 ML/MIN (>60); Globulin 3.6 g/dL (1.3-3.2); Glucose 93 mg/dl (74-100); Potassium 4.3 mmoL/L (3.5-5.1); Sodium 138 mmol/L (136-145); Total Protein,Serum 7.9 g/dl (6.3-8.2)
== END 2020-07-30 14:50 | disposition home or self-care (01) ==
LOC: INF 08:37
PROVIDERS: Visit Provider Internal Medicine Medical Oncology
DX: Z51.11 Encounter for antineoplastic chemotherapy (principal); C15.9 Malignant neoplasm of esophagus, unspecified
CPT/HCPCS: 80053; 85025; 96413; 96415; J1642; J9263; Q0166

== ENCOUNTER 2020-08-27 09:09 | Outpatient (CLI) | payer MEDICARE, SELFPAY ==
[2020-08-27] VITALS (15 sets, daily range): BP systolic 120–146; BP diastolic 60–78; PULSE 57–76; RESP 17; TEMP 36.4; O2SAT 96; BMI 22.3
[2020-08-27 09:26] LABS: Basophils % 0.2 % (0.1-2.0); Eosinophils # 0.1 K/mm3 (0.0-0.4); Hematocrit 31.7 % (42.0-52.0); Hemoglobin 10.8 g/dL (14.1-18.0); Lymphocytes # 1.8 K/mm3 (0.7-4.5); Lymphocytes % 23.9 % (10-50); Mean Corpuscular HGB Conc 34.1 g/dL (31.8-35.4); Mean Corpuscular Hemoglobin 39.6 pg (27.0-31.2); Mean Corpuscular Volume 116.1 fl (80-94); Mean Platelet Volume 8.8 fl (7.4-10.4); Monocytes # 0.8 K/mm3 (0.1-1.0); Monocytes % 9.8 % (1.7-9.3); Neutrophils % 65.1 % (37.0-80.0); Platelet Count 191 K/mm3 (142-424); Red Blood Count 2.73 M/mm3 (4.60-6.20); Red Cell Distribution Width 15.6 % (11.5-17.5); White Blood Count 7.7 K/mm3 (4.8-10.8)
[2020-08-27 09:30] LABS: Chloride 102 mmol/L (98-107); Potassium 3.9 mmoL/L (3.5-5.1); Sodium 133 mmol/L (136-145)
[2020-08-27 09:33] LABS: Alanine Aminotransferase 12 U/L (12-78); Albumin Level 4.2 g/dl (3.5-5.0); Albumin/Globulin Ratio 1.2 (1.1-1.8); Alkaline Phosphatase 64 U/L (38-126); Anion Gap 12.9 mEq/L (5-15); Aspartate Amino Transferase 23 U/L (17-59); Blood Urea Nitrogen 4 mg/dl (9-20); Calcium 9.4 mg/dl (8.4-10.2); Carbon Dioxide 22 mmol/L (22.0-30.0); Creatinine Clearance Estimated 74 mL/min (50-200); Estimated Glomerular Filt Rate 134 ml/min (>60); GFR (African American) 163 ML/MIN (>60); Globulin 3.5 g/dL (1.3-3.2); Glucose 94 mg/dl (74-100); Total Protein,Serum 7.7 g/dl (6.3-8.2)
== END 2020-08-27 14:45 | disposition home or self-care (01) ==
LOC: INF 09:09
PROVIDERS: Visit Provider Internal Medicine Medical Oncology
DX: Z51.11 Encounter for antineoplastic chemotherapy (principal); C15.9 Malignant neoplasm of esophagus, unspecified
CPT/HCPCS: 80053; 85025; 96413; 96415; J1642; J9263; Q0166

== ENCOUNTER 2020-09-25 08:20 | Outpatient (CLI) | payer MEDICARE, SELFPAY ==
[2020-09-25] VITALS (14 sets, daily range): BP systolic 125–157; BP diastolic 65–83; PULSE 60–64; RESP 18–20; TEMP 36.4–36.6; O2SAT 99; BMI 22.4
[2020-09-25 08:46] LABS: Basophils % 0.5 % (0.1-2.0); Eosinophils # 0.1 K/mm3 (0.0-0.4); Eosinophils % 1.3 % (0.1-12.0); Hemoglobin 10.7 g/dL (14.1-18.0); Lymphocytes # 1.6 K/mm3 (0.7-4.5); Lymphocytes % 22.6 % (10-50); Mean Corpuscular HGB Conc 33.2 g/dL (31.8-35.4); Mean Corpuscular Hemoglobin 38.9 pg (27.0-31.2); Mean Platelet Volume 8.3 fl (7.4-10.4); Monocytes # 0.7 K/mm3 (0.1-1.0); Monocytes % 10.2 % (1.7-9.3); Neutrophils # 4.5 K/mm3 (1.8-7.8); Neutrophils % 65.3 % (37.0-80.0); Platelet Count 216 K/mm3 (142-424); Red Blood Count 2.74 M/mm3 (4.60-6.20); Red Cell Distribution Width 14.9 % (11.5-17.5); White Blood Count 6.9 K/mm3 (4.8-10.8)
[2020-09-25 08:54] LABS: Alanine Aminotransferase 15 U/L (12-78); Albumin Level 3.6 g/dl (3.5-5.0); Albumin/Globulin Ratio 1.1 (1.1-1.8); Alkaline Phosphatase 61 U/L (38-126); Anion Gap 9.9 mEq/L (5-15); Aspartate Amino Transferase 22 U/L (17-59); Bilirubin,Total 1.1 mg/dl (0.2-1.3); Blood Urea Nitrogen 4 mg/dl (9-20); Calcium 8.9 mg/dl (8.4-10.2); Carbon Dioxide 23 mmol/L (22.0-30.0); Chloride 104 mmol/L (98-107); Creatinine Clearance Estimated 74 mL/min (50-200); Estimated Glomerular Filt Rate 134 ml/min (>60); GFR (African American) 163 ML/MIN (>60); Globulin 3.3 g/dL (1.3-3.2); Glucose 88 mg/dl (74-100); Potassium 3.9 mmoL/L (3.5-5.1); Sodium 133 mmol/L (136-145); Total Protein,Serum 6.9 g/dl (6.3-8.2)
== END 2020-09-25 13:30 | disposition home or self-care (01) ==
LOC: INF 08:30
PROVIDERS: Visit Provider Internal Medicine Medical Oncology
DX: Z51.11 Encounter for antineoplastic chemotherapy (principal); C15.9 Malignant neoplasm of esophagus, unspecified
CPT/HCPCS: 80053; 85025; 96413; 96415; J1642; J9263; Q0166

== ENCOUNTER 2020-10-16 09:37 | Outpatient (CLI) | payer MEDICARE, SELFPAY ==
[2020-10-16] VITALS (10 sets, daily range): BP systolic 83–159; BP diastolic 52–79; PULSE 66–91; RESP 18; TEMP 36.6; O2SAT 96; BMI 22.9
[2020-10-16 09:57] LABS: Basophils % 0.3 % (0.1-2.0); Eosinophils # 0.1 K/mm3 (0.0-0.4); Eosinophils % 1.3 % (0.1-12.0); Hematocrit 32.5 % (42.0-52.0); Hemoglobin 10.9 g/dL (14.1-18.0); Lymphocytes # 1.8 K/mm3 (0.7-4.5); Lymphocytes % 26.2 % (10-50); Mean Corpuscular HGB Conc 33.7 g/dL (31.8-35.4); Mean Corpuscular Hemoglobin 38.3 pg (27.0-31.2); Mean Corpuscular Volume 113.7 fl (80-94); Monocytes # 0.6 K/mm3 (0.1-1.0); Monocytes % 9.3 % (1.7-9.3); Neutrophils # 4.3 K/mm3 (1.8-7.8); Neutrophils % 62.9 % (37.0-80.0); Platelet Count 183 K/mm3 (142-424); Red Blood Count 2.86 M/mm3 (4.60-6.20); Red Cell Distribution Width 15.1 % (11.5-17.5); White Blood Count 6.9 K/mm3 (4.8-10.8)
[2020-10-16 10:05] LABS: Chloride 106 mmol/L (98-107); Sodium 137 mmol/L (136-145)
[2020-10-16 10:06] LABS: Potassium 3.5 mmoL/L (3.5-5.1)
[2020-10-16 10:08] LABS: Alanine Aminotransferase 13 U/L (12-78); Albumin Level 4.2 g/dl (3.5-5.0); Albumin/Globulin Ratio 1.2 (1.1-1.8); Alkaline Phosphatase 73 U/L (38-126); Anion Gap 14.5 mEq/L (5-15); Aspartate Amino Transferase 25 U/L (17-59); Bilirubin,Total 0.7 mg/dl (0.2-1.3); Blood Urea Nitrogen 8 mg/dl (9-20); Calcium 9.5 mg/dl (8.4-10.2); Carbon Dioxide 20 mmol/L (22.0-30.0); Creatinine Clearance Estimated 74 mL/min (50-200); Estimated Glomerular Filt Rate 134 ml/min (>60); GFR (African American) 163 ML/MIN (>60); Globulin 3.6 g/dL (1.3-3.2); Glucose 92 mg/dl (74-100); Total Protein,Serum 7.8 g/dl (6.3-8.2)
== END 2020-10-16 14:35 | disposition home or self-care (01) ==
LOC: INF 09:37
PROVIDERS: Visit Provider Internal Medicine Medical Oncology
DX: Z51.11 Encounter for antineoplastic chemotherapy (principal); C15.9 Malignant neoplasm of esophagus, unspecified
CPT/HCPCS: 80053; 85025; 96413; 96415; J1642; J9263; Q0166

== ENCOUNTER 2020-11-02 09:07 | Outpatient (CLI) | payer MEDICARE, SELFPAY ==
[2020-11-02 08:54] VITALS: BMI 22.9
--- NOTE | 2020-11-02 09:11 | CT_ITS ---
PROCEDURE: CT ABDOMEN PELVIS w CON CLINICAL INDICATION: ESOPHAGEAL CANCER Follow-up esophageal cancer COMPARISON: CT CT ABDOMEN PELVIS WO CON from 04/15/[address] ABDOMEN PELVIS W CON from 07/06/2020 TECHNIQUE: IV Contrast: 75ML Isovue 370 Oral Contrast 450ml Redicat Axial images obtained with sagittal and coronal reformats. All CT scans at the facility use one or more dose reduction, viz: automated exposure control, ma/kV adjustment per patient size (including targeted exams where dose is matched to indication, i.e. head), or iterative reconstruction technique. FINDINGS: There is thickening of the distal esophagus and at the GE junction. No focal liver lesion evident. There is severe coronary artery calcification. The spleen has an unremarkable appearance. No renal or ureteral calculi. Vascular calcifications are present within the renal charity. A focal calcific density is present in the central aspect of the head of the pancreas. The left adrenal gland is enlarged with an adrenal nodule measuring 2 cm previously 1.5 cm suspicious for metastatic focus. Mild amount of retained colonic feces. No intestinal obstruction or free air. No evidence of appendicitis or diverticulitis. No pelvic mass or abnormal fluid collection No acute bony findings. No lytic or blastic changes apparent. IMPRESSION: Enlarging left adrenal nodule suspicious for metastatic disease Dictated by: Misbah Braun MD 11/05/2020 07:59 Misbah Braun MD in [place] 11/05/2020 07:59
--- NOTE | 2020-11-02 09:11 | CT_ITS ---
PROCEDURE: CT CHEST WO/W CON CLINCAL INDICATION: ESOPHAGEAL CANCER COMPARISON: CT CT CHEST WO/W CON from 03/31/[address] CHEST W CON from 07/06/2020 TECHNIQUE: IV Contrast: 75ml Isovue 370 Axial images obtained with sagittal and coronal reformats. All CT scans at the facility use one or more dose reduction, viz: automated exposure control, ma/kV adjustment per patient size (including targeted exams where dose is matched to indication, i.e. head), or iterative reconstruction technique. FINDINGS: HEART AND MEDIASTINAL STRUCTURES: Diffuse coronary artery calcifications are present. There are small mediastinal lymph nodes in the precarinal region and subcarinal area. Small nodes are present anterior to the left mainstem bronchus. These nodes are not enlarged but are slightly larger when compared to the previous study. Precarinal subcarinal nodes do not appear significantly changed. There is concentric thickening of the distal esophagus and at the GE junction which is not significantly changed. LUNGS AND PLEURAL SPACES: COPD changes with centrilobular and paraseptal emphysema and scattered areas of scarring. No change 5 mm left apical nodule. Minimal nodularity noted in the left major fissure inferiorly nonspecific and may be due to some subpleural atelectasis. Pulmonary fibrotic changes are present peripherally in the lung bases. No new suspicious nodules. No infiltrates or effusions. MediPort catheter is present from the right subclavian approach. Cardiac pacemaker device also noted. BONY STRUCTURES: No acute bony abnormalities apparent. UPPER ABDOMEN: Please see abdomen report done on the same day ADDITIONAL FINDINGS: No other significant abnormalities. IMPRESSION: No change mild thickening of the distal esophagus and at the GE junction. Mildly prominent mediastinal lymph nodes are for the most part stable. There are few small nodes anterior to the left mainstem bronchus which are slightly larger. These nodes however are small measuring 5 mm or less. Continued follow-up suggested. COPD with centrilobular and paraseptal emphysema and pulmonary fibrosis. No suspicious pulmonary nodules apparent Dictated by: Misbah Braun MD 11/03/2020 09:06 Misbah Braun MD in [place] 11/03/2020 09:06
[2020-11-02 09:16] LABS: Basophils % 0.3 % (0.1-2.0); Eosinophils # 0.1 K/mm3 (0.0-0.4); Eosinophils % 1.2 % (0.1-12.0); Hematocrit 32.6 % (42.0-52.0); Hemoglobin 10.7 g/dL (14.1-18.0); Mean Corpuscular HGB Conc 32.9 g/dL (31.8-35.4); Mean Corpuscular Volume 118.4 fl (80-94); Monocytes # 0.7 K/mm3 (0.1-1.0); Monocytes % 9.6 % (1.7-9.3); Neutrophils # 4.1 K/mm3 (1.8-7.8); Neutrophils % 59.8 % (37.0-80.0); Platelet Count 200 K/mm3 (142-424); Red Blood Count 2.75 M/mm3 (4.60-6.20); Red Cell Distribution Width 15.6 % (11.5-17.5); White Blood Count 6.9 K/mm3 (4.8-10.8)
[2020-11-02 09:24] LABS: Alanine Aminotransferase 11 U/L (12-78); Albumin Level 3.8 g/dl (3.5-5.0); Albumin/Globulin Ratio 1.1 (1.1-1.8); Alkaline Phosphatase 59 U/L (38-126); Anion Gap 12.9 mEq/L (5-15); Aspartate Amino Transferase 21 U/L (17-59); Bilirubin,Total 0.9 mg/dl (0.2-1.3); Blood Urea Nitrogen 6 mg/dl (9-20); Calcium 9.4 mg/dl (8.4-10.2); Carbon Dioxide 23 mmol/L (22.0-30.0); Chloride 106 mmol/L (98-107); Creatinine Clearance Estimated 74 mL/min (50-200); Estimated Glomerular Filt Rate 134 ml/min (>60); GFR (African American) 163 ML/MIN (>60); Globulin 3.5 g/dL (1.3-3.2); Glucose 84 mg/dl (74-100); Potassium 3.9 mmoL/L (3.5-5.1); Sodium 138 mmol/L (136-145); Total Protein,Serum 7.3 g/dl (6.3-8.2)
== END 2020-11-02 10:20 | disposition home or self-care (01) ==
LOC: RAD 09:08
PROVIDERS: PCP Family Medicine; Visit Provider Internal Medicine Medical Oncology
DX: C15.9 Malignant neoplasm of esophagus, unspecified (principal); Z03.89 Encounter for observation for other suspected diseases and conditions ruled out
CPT/HCPCS: 71270; 74178; 80053; 85025; J1642; Q9967

== ENCOUNTER 2020-11-05 09:23 | Outpatient (CLI) | payer MEDICARE, SELFPAY ==
[2020-11-05] VITALS (14 sets, daily range): BP systolic 99–139; BP diastolic 46–86; PULSE 60–69; RESP 16–18; TEMP 36.1; O2SAT 99
== END 2020-11-05 14:35 | disposition home or self-care (01) ==
LOC: INF 09:25
PROVIDERS: PCP Family Medicine; Visit Provider Internal Medicine Medical Oncology
DX: Z51.11 Encounter for antineoplastic chemotherapy (principal); C15.4 Malignant neoplasm of middle third of esophagus; C79.70 Secondary malignant neoplasm of unspecified adrenal gland; C78.00 Secondary malignant neoplasm of unspecified lung
CPT/HCPCS: 96413; 96415; J1642; J9263; Q0166

== ENCOUNTER → 2020-12-04 08:32 | Outpatient (CLI) | payer MEDICARE, SELFPAY ==
[2020-12-04] VITALS (8 sets, daily range): BP systolic 96–156; BP diastolic 49–80; PULSE 60–70; RESP 18; TEMP 36; O2SAT 99; BMI 23.3
[2020-12-04 09:02] LABS: Basophils % 0.4 % (0.1-2.0); Eosinophils # 0.1 K/mm3 (0.0-0.4); Hematocrit 33.7 % (42.0-52.0); Hemoglobin 11.2 g/dL (14.1-18.0); Lymphocytes # 1.7 K/mm3 (0.7-4.5); Lymphocytes % 30.1 % (10-50); Mean Corpuscular HGB Conc 33.1 g/dL (31.8-35.4); Mean Corpuscular Hemoglobin 39.1 pg (27.0-31.2); Mean Corpuscular Volume 118.1 fl (80-94); Mean Platelet Volume 9.2 fl (7.4-10.4); Monocytes # 0.6 K/mm3 (0.1-1.0); Monocytes % 10.5 % (1.7-9.3); Neutrophils # 3.2 K/mm3 (1.8-7.8); Platelet Count 229 K/mm3 (142-424); Red Blood Count 2.85 M/mm3 (4.60-6.20); Red Cell Distribution Width 16.5 % (11.5-17.5); White Blood Count 5.6 K/mm3 (4.8-10.8)
[2020-12-04 09:14] LABS: Alanine Aminotransferase 12 U/L (12-78); Albumin Level 3.7 g/dl (3.5-5.0); Albumin/Globulin Ratio 1.1 (1.1-1.8); Alkaline Phosphatase 58 U/L (38-126); Anion Gap 10.9 mEq/L (5-15); Aspartate Amino Transferase 22 U/L (17-59); Blood Urea Nitrogen 3 mg/dl (9-20); Calcium 9.4 mg/dl (8.4-10.2); Carbon Dioxide 23 mmol/L (22.0-30.0); Chloride 106 mmol/L (98-107); Creatinine Clearance Estimated 75 mL/min (50-200); Estimated Glomerular Filt Rate 166 ml/min (>60); GFR (African American) 201 ML/MIN (>60); Globulin 3.5 g/dL (1.3-3.2); Glucose 88 mg/dl (74-100); Potassium 3.9 mmoL/L (3.5-5.1); Sodium 136 mmol/L (136-145); Total Protein,Serum 7.2 g/dl (6.3-8.2)
== END ==
PROVIDERS: PCP Family Medicine; Visit Provider Internal Medicine Medical Oncology
DX: Z51.11 Encounter for antineoplastic chemotherapy (principal); C15.4 Malignant neoplasm of middle third of esophagus
CPT/HCPCS: 80053; 85025; 96413; 96415; J1642; J9263; Q0166

== ENCOUNTER 2020-12-24 09:53 | Outpatient (CLI) | payer MEDICARE, SELFPAY ==
[2020-12-24] VITALS (13 sets, daily range): BP systolic 96–135; BP diastolic 45–67; PULSE 62–71; RESP 17–18; TEMP 36.6; O2SAT 94–96; BMI 23.5
[2020-12-24 10:46] LABS: Basophils % 0.4 % (0.1-2.0); Eosinophils # 0.1 K/mm3 (0.0-0.4); Eosinophils % 0.8 % (0.1-12.0); Hematocrit 42.1 % (42.0-52.0); Hemoglobin 13.6 g/dL (14.1-18.0); Lymphocytes # 1.5 K/mm3 (0.7-4.5); Lymphocytes % 25.3 % (10-50); Mean Corpuscular HGB Conc 32.4 g/dL (31.8-35.4); Mean Corpuscular Hemoglobin 39.4 pg (27.0-31.2); Mean Corpuscular Volume 121.8 fl (80-94); Mean Platelet Volume 8.1 fl (7.4-10.4); Monocytes # 0.7 K/mm3 (0.1-1.0); Neutrophils # 3.7 K/mm3 (1.8-7.8); Neutrophils % 62.5 % (37.0-80.0); Platelet Count 172 K/mm3 (142-424); Red Blood Count 3.46 M/mm3 (4.60-6.20); Red Cell Distribution Width 16.6 % (11.5-17.5)
[2020-12-24 10:50] LABS: Chloride 106 mmol/L (98-107); Potassium 3.8 mmoL/L (3.5-5.1); Sodium 136 mmol/L (136-145)
[2020-12-24 10:52] LABS: Alanine Aminotransferase 13 U/L (12-78); Aspartate Amino Transferase 28 U/L (17-59); Blood Urea Nitrogen 6 mg/dl (9-20); Creatinine Clearance Estimated 75 mL/min (50-200); Estimated Glomerular Filt Rate 166 ml/min (>60); GFR (African American) 201 ML/MIN (>60)
[2020-12-24 10:53] LABS: Albumin Level 3.9 g/dl (3.5-5.0); Albumin/Globulin Ratio 1.1 (1.1-1.8); Alkaline Phosphatase 74 U/L (38-126); Anion Gap 12.8 mEq/L (5-15); Bilirubin,Total 0.7 mg/dl (0.2-1.3); Calcium 9.4 mg/dl (8.4-10.2); Carbon Dioxide 21 mmol/L (22.0-30.0); Globulin 3.5 g/dL (1.3-3.2); Glucose 98 mg/dl (74-100); Total Protein,Serum 7.4 g/dl (6.3-8.2)
== END 2020-12-24 15:12 | disposition home or self-care (01) ==
LOC: INF 09:55
PROVIDERS: PCP Family Medicine; Visit Provider Internal Medicine Medical Oncology
DX: Z51.11 Encounter for antineoplastic chemotherapy (principal); C15.9 Malignant neoplasm of esophagus, unspecified
CPT/HCPCS: 80053; 85025; 96413; 96415; J1642; J9263; Q0166

== ENCOUNTER 2021-01-14 10:37 | Outpatient (CLI) | payer MEDICARE, SELFPAY ==
[2021-01-14] VITALS (13 sets, daily range): BP systolic 91–135; BP diastolic 48–67; PULSE 64–86; RESP 16–18; O2SAT 99; BMI 22.1
[2021-01-14 11:25] LABS: Basophils % 0.5 % (0.1-2.0); Eosinophils # 0.1 K/mm3 (0.0-0.4); Eosinophils % 0.6 % (0.1-12.0); Hematocrit 35.3 % (42.0-52.0); Hemoglobin 11.7 g/dL (14.1-18.0); Lymphocytes # 1.8 K/mm3 (0.7-4.5); Lymphocytes % 24.7 % (10-50); Mean Corpuscular HGB Conc 33.2 g/dL (31.8-35.4); Mean Corpuscular Volume 120.4 fl (80-94); Mean Platelet Volume 8.6 fl (7.4-10.4); Monocytes # 0.7 K/mm3 (0.1-1.0); Monocytes % 9.9 % (1.7-9.3); Neutrophils # 4.8 K/mm3 (1.8-7.8); Neutrophils % 64.3 % (37.0-80.0); Platelet Count 168 K/mm3 (142-424); Red Blood Count 2.93 M/mm3 (4.60-6.20); Red Cell Distribution Width 16.8 % (11.5-17.5); White Blood Count 7.4 K/mm3 (4.8-10.8)
[2021-01-14 11:32] LABS: Alanine Aminotransferase 13 U/L (12-78); Albumin/Globulin Ratio 1.2 (1.1-1.8); Alkaline Phosphatase 67 U/L (38-126); Anion Gap 12.4 mEq/L (5-15); Aspartate Amino Transferase 27 U/L (17-59); Blood Urea Nitrogen 7 mg/dl (9-20); Calcium 9.7 mg/dl (8.4-10.2); Carbon Dioxide 22 mmol/L (22.0-30.0); Chloride 106 mmol/L (98-107); Creatinine Clearance Estimated 71 mL/min (50-200); Estimated Glomerular Filt Rate 134 ml/min (>60); GFR (African American) 163 ML/MIN (>60); Globulin 3.3 g/dL (1.3-3.2); Glucose 102 mg/dl (74-100); Potassium 3.4 mmoL/L (3.5-5.1); Sodium 137 mmol/L (136-145); Total Protein,Serum 7.3 g/dl (6.3-8.2)
== END 2021-01-14 16:05 | disposition home or self-care (01) ==
LOC: INF 10:38
PROVIDERS: PCP Family Medicine; Visit Provider Internal Medicine Medical Oncology
DX: Z51.11 Encounter for antineoplastic chemotherapy (principal); C15.9 Malignant neoplasm of esophagus, unspecified
CPT/HCPCS: 36415; 80053; 85025; 96413; 96415; J1642; J9263; Q0166

== ENCOUNTER 2021-02-04 09:05 | Outpatient (CLI) | payer MEDICARE, SELFPAY ==
[2021-02-04] VITALS (13 sets, daily range): BP systolic 115–151; BP diastolic 61–78; PULSE 59–91; RESP 17; TEMP 36.6; O2SAT 95–96; BMI 24.2
[2021-02-04 09:30] LABS: Basophils % 0.4 % (0.1-2.0); Eosinophils # 0.1 K/mm3 (0.0-0.4); Eosinophils % 0.8 % (0.1-12.0); Hematocrit 33.7 % (42.0-52.0); Hemoglobin 11.8 g/dL (14.1-18.0); Mean Corpuscular HGB Conc 34.9 g/dL (31.8-35.4); Mean Corpuscular Volume 115.4 fl (80-94); Mean Platelet Volume 8.6 fl (7.4-10.4); Monocytes # 0.7 K/mm3 (0.1-1.0); Monocytes % 11.5 % (1.7-9.3); Neutrophils # 3.6 K/mm3 (1.8-7.8); Neutrophils % 56.3 % (37.0-80.0); Platelet Count 187 K/mm3 (142-424); Red Blood Count 2.92 M/mm3 (4.60-6.20); Red Cell Distribution Width 16.7 % (11.5-17.5); White Blood Count 6.3 K/mm3 (4.8-10.8)
[2021-02-04 09:34] LABS: Mean Corpuscular Hemoglobin 40.2 pg (27.0-31.2)
[2021-02-04 09:46] LABS: Chloride 106 mmol/L (98-107); Sodium 136 mmol/L (136-145)
[2021-02-04 09:47] LABS: Potassium 3.8 mmoL/L (3.5-5.1)
[2021-02-04 09:49] LABS: Alanine Aminotransferase 9 U/L (12-78); Albumin Level 4.1 g/dl (3.5-5.0); Albumin/Globulin Ratio 1.3 (1.1-1.8); Alkaline Phosphatase 70 U/L (38-126); Anion Gap 11.8 mEq/L (5-15); Aspartate Amino Transferase 28 U/L (17-59); Bilirubin,Total 1.2 mg/dl (0.2-1.3); Blood Urea Nitrogen 7 mg/dl (9-20); Calcium 9.7 mg/dl (8.4-10.2); Carbon Dioxide 22 mmol/L (22.0-30.0); Creatinine Clearance Estimated 78 mL/min (50-200); Estimated Glomerular Filt Rate 112 ml/min (>60); GFR (African American) 136 ML/MIN (>60); Globulin 3.1 g/dL (1.3-3.2); Glucose 90 mg/dl (74-100); Total Protein,Serum 7.2 g/dl (6.3-8.2)
== END 2021-02-04 14:41 | disposition home or self-care (01) ==
LOC: INF 09:06
PROVIDERS: PCP Family Medicine; Visit Provider Internal Medicine Medical Oncology
DX: Z51.11 Encounter for antineoplastic chemotherapy (principal); C15.9 Malignant neoplasm of esophagus, unspecified
CPT/HCPCS: 80053; 85025; 96413; 96415; J1642; J9263; Q0166

== ENCOUNTER 2021-03-11 08:50 | Outpatient (CLI) | payer MEDICARE, SELFPAY ==
[2021-03-11] VITALS (7 sets, daily range): BP systolic 128–162; BP diastolic 66–86; PULSE 58–82; RESP 18; TEMP 35.8; O2SAT 100; BMI 23.9
[2021-03-11 09:16] LABS: Basophils % 0.5 % (0.1-2.0); Eosinophils # 0.1 K/mm3 (0.0-0.4); Eosinophils % 0.8 % (0.1-12.0); Hematocrit 37.8 % (42.0-52.0); Lymphocytes % 26.9 % (10-50); Mean Corpuscular HGB Conc 31.7 g/dL (31.8-35.4); Mean Corpuscular Hemoglobin 39.1 pg (27.0-31.2); Mean Corpuscular Volume 123.5 fl (80-94); Mean Platelet Volume 9.1 fl (7.4-10.4); Monocytes # 0.8 K/mm3 (0.1-1.0); Monocytes % 10.3 % (1.7-9.3); Neutrophils # 4.6 K/mm3 (1.8-7.8); Neutrophils % 61.4 % (37.0-80.0); Platelet Count 224 K/mm3 (142-424); Red Blood Count 3.06 M/mm3 (4.60-6.20); Red Cell Distribution Width 14.9 % (11.5-17.5); White Blood Count 7.5 K/mm3 (4.8-10.8)
[2021-03-11 09:23] LABS: Chloride 105 mmol/L (98-107)
[2021-03-11 09:24] LABS: Sodium 136 mmol/L (136-145)
[2021-03-11 09:26] LABS: Alanine Aminotransferase 16 U/L (12-78); Aspartate Amino Transferase 29 U/L (17-59); Blood Urea Nitrogen 8 mg/dl (9-20); Creatinine Clearance Estimated 77 mL/min (50-200); Estimated Glomerular Filt Rate 112 ml/min (>60); GFR (African American) 136 ML/MIN (>60)
[2021-03-11 09:27] LABS: Alkaline Phosphatase 61 U/L (38-126); Bilirubin,Total 1.2 mg/dl (0.2-1.3); Carbon Dioxide 23 mmol/L (22.0-30.0)
[2021-03-11 09:31] LABS: Albumin Level 3.9 g/dl (3.5-5.0); Albumin/Globulin Ratio 1.1 (1.1-1.8); Globulin 3.6 g/dL (1.3-3.2); Total Protein,Serum 7.5 g/dl (6.3-8.2)
[2021-03-11 09:39] LABS: Anion Gap 11.6 mEq/L (5-15); Calcium 9.5 mg/dl (8.4-10.2); Glucose 87 mg/dl (74-100); Potassium 3.6 mmoL/L (3.5-5.1)
== END 2021-03-11 14:25 | disposition home or self-care (01) ==
LOC: INF 08:52
PROVIDERS: PCP Family Medicine; Visit Provider Internal Medicine Medical Oncology
DX: Z51.11 Encounter for antineoplastic chemotherapy (principal); C15.9 Malignant neoplasm of esophagus, unspecified
CPT/HCPCS: 80053; 85025; 96413; 96415; J1642; J9263; Q0166

== ENCOUNTER 2021-04-15 09:12 | Outpatient (CLI) | payer MEDICARE, SELFPAY ==
[2021-04-15] VITALS (13 sets, daily range): BP systolic 111–155; BP diastolic 53–78; PULSE 60–73; RESP 16–18; TEMP 36.4; O2SAT 95; BMI 24.4
[2021-04-15 09:31] LABS: Basophils # 0.1 K/mm3 (0-0.2); Basophils % 0.7 % (0.1-2.0); Eosinophils # 0.2 K/mm3 (0.0-0.4); Eosinophils % 1.7 % (0.1-12.0); Hematocrit 36.6 % (42.0-52.0); Lymphocytes # 2.2 K/mm3 (0.7-4.5); Lymphocytes % 23.8 % (10-50); Mean Corpuscular HGB Conc 32.7 g/dL (31.8-35.4); Mean Corpuscular Hemoglobin 38.7 pg (27.0-31.2); Mean Corpuscular Volume 118.2 fl (80-94); Mean Platelet Volume 8.5 fl (7.4-10.4); Monocytes # 0.7 K/mm3 (0.1-1.0); Neutrophils % 65.9 % (37.0-80.0); Platelet Count 238 K/mm3 (142-424); Red Blood Count 3.09 M/mm3 (4.60-6.20); Red Cell Distribution Width 14.9 % (11.5-17.5); White Blood Count 9.1 K/mm3 (4.8-10.8)
[2021-04-15 09:41] LABS: Chloride 108 mmol/L (98-107); Sodium 134 mmol/L (136-145)
[2021-04-15 09:42] LABS: Potassium 3.9 mmoL/L (3.5-5.1)
[2021-04-15 09:44] LABS: Alanine Aminotransferase 14 U/L (12-78); Albumin Level 3.9 g/dl (3.5-5.0); Albumin/Globulin Ratio 1.1 (1.1-1.8); Alkaline Phosphatase 81 U/L (38-126); Anion Gap 8.9 mEq/L (5-15); Aspartate Amino Transferase 26 U/L (17-59); Bilirubin,Total 1.3 mg/dl (0.2-1.3); Blood Urea Nitrogen 7 mg/dl (9-20); Carbon Dioxide 21 mmol/L (22.0-30.0); Creatinine Clearance Estimated 78 mL/min (50-200); Estimated Glomerular Filt Rate 112 ml/min (>60); GFR (African American) 136 ML/MIN (>60); Globulin 3.7 g/dL (1.3-3.2); Total Protein,Serum 7.6 g/dl (6.3-8.2)
[2021-04-15 09:45] LABS: Calcium 8.7 mg/dl (8.4-10.2); Glucose 81 mg/dl (74-100)
== END 2021-04-15 14:20 | disposition home or self-care (01) ==
LOC: INF 09:14
PROVIDERS: PCP Family Medicine; Visit Provider Internal Medicine Medical Oncology
DX: Z51.11 Encounter for antineoplastic chemotherapy (principal); C15.9 Malignant neoplasm of esophagus, unspecified
CPT/HCPCS: 80053; 85025; 96413; 96415; J1642; J9263; Q0166

== ENCOUNTER 2021-05-06 08:51 | Outpatient (CLI) | payer MEDICARE, SELFPAY ==
[2021-05-06] VITALS (12 sets, daily range): BP systolic 90–126; BP diastolic 39–70; PULSE 60–69; RESP 16; TEMP 36.1; O2SAT 99; BMI 24.2
[2021-05-06 09:25] LABS: Alanine Aminotransferase 17 U/L (12-78); Albumin Level 4.1 g/dl (3.5-5.0); Albumin/Globulin Ratio 1.1 (1.1-1.8); Alkaline Phosphatase 76 U/L (38-126); Anion Gap 11.7 mEq/L (5-15); Aspartate Amino Transferase 33 U/L (17-59); Basophils # 0.1 K/mm3 (0-0.2); Basophils % 0.9 % (0.1-2.0); Bilirubin,Total 1.1 mg/dl (0.2-1.3); Blood Urea Nitrogen 8 mg/dl (9-20); Calcium 9.3 mg/dl (8.4-10.2); Carbon Dioxide 23 mmol/L (22.0-30.0); Chloride 106 mmol/L (98-107); Creatinine Clearance Estimated 78 mL/min (50-200); Eosinophils # 0.1 K/mm3 (0.0-0.4); Eosinophils % 1.6 % (0.1-12.0); Estimated Glomerular Filt Rate 134 ml/min (>60); GFR (African American) 163 ML/MIN (>60); Globulin 3.7 g/dL (1.3-3.2); Glucose 98 mg/dl (74-100); Hematocrit 36.4 % (42.0-52.0); Hemoglobin 11.8 g/dL (14.1-18.0); Lymphocytes # 1.8 K/mm3 (0.7-4.5); Lymphocytes % 27.4 % (10-50); Mean Corpuscular HGB Conc 32.3 g/dL (31.8-35.4); Mean Corpuscular Hemoglobin 38.8 pg (27.0-31.2); Mean Corpuscular Volume 120.2 fl (80-94); Mean Platelet Volume 8.3 fl (7.4-10.4); Monocytes # 0.6 K/mm3 (0.1-1.0); Monocytes % 9.6 % (1.7-9.3); Neutrophils % 60.5 % (37.0-80.0); Platelet Count 195 K/mm3 (142-424); Potassium 3.7 mmoL/L (3.5-5.1); Red Blood Count 3.03 M/mm3 (4.60-6.20); Red Cell Distribution Width 15.3 % (11.5-17.5); Sodium 137 mmol/L (136-145); Total Protein,Serum 7.8 g/dl (6.3-8.2); White Blood Count 6.6 K/mm3 (4.8-10.8)
== END 2021-05-06 14:10 | disposition home or self-care (01) ==
LOC: INF 08:51
PROVIDERS: PCP Family Medicine; Visit Provider Internal Medicine Medical Oncology
DX: Z51.11 Encounter for antineoplastic chemotherapy (principal); C15.4 Malignant neoplasm of middle third of esophagus
CPT/HCPCS: 80053; 85025; 96413; 96415; J1642; J9263; Q0166

== ENCOUNTER → 2021-05-17 09:48 | Outpatient (CLI) | payer MEDICARE, SELFPAY ==
--- NOTE | 2021-05-17 09:51 | CT_ITS ---
FINAL REPORT CLINICAL HISTORY: ESOPHAGEAL CANCER, 3 month f/u COMPARISON: November 02, 2020 FINDINGS: Axial CT images of the chest were obtained with contrast. Coronal reformatted images were also obtained. This study was performed with techniques to keep radiation doses as low as reasonably achievable, (ALARA). Individualized dose reduction techniques using automated exposure control or adjustment of mA and/or KV according to the patient's size were employed. Multiple small and borderline size mediastinal and hilar nodes are visually stable. No axillary mass or adenopathy is identified. There is persistent mild thickening of the mid and distal esophagus which may represent post treatment change or residual neoplasm. On lung window images, there are moderate changes of emphysema. There is moderate scarring. There are multiple peripheral nodules which are new. There is a lateral right mid lung nodule measuring 8 mm, well seen on image 50. There is a lateral left lower lobe nodule measuring 6 mm, well seen on image 61. There are multiple other nodules identified. These findings are worrisome for pulmonary metastasis. No localized pulmonary inflammatory process is identified. The bone window images there are multiple chronic right lateral rib fractures. IMPRESSION: Persistent mild thickening of the mid and distal esophagus, may represent post treatment change or residual neoplasm. Multiple new peripheral nodules as described, worrisome for pulmonary metastasis. Reviewed, Interpreted and Dictated by Elmo Fox III, MD Transcribed by Wen Nichole Authenticated by Elmo Fox III, MD on 05/17/2021 11:25:14 AM [facility]
--- NOTE | 2021-05-17 09:51 | CT_ITS ---
FINAL REPORT CLINICAL HISTORY: ESOPHAGEAL CANCER, 3 month f/u COMPARISON: November 02, 2020 FINDINGS: Technique: The patient was injected with intravenous contrast. Oral contrast was administered. Axial images through the abdomen and pelvis were performed. This study was performed with techniques to keep radiation doses as low as reasonably achievable (ALARA). Individualized dose reduction techniques using automated exposure control or adjustment of mA and/or kV according to the patient's size were employed. Abdomen: The liver is normal in size and attenuation. There is nonspecific gallbladder wall thickening which is stable. The spleen is unremarkable. There is a left adrenal mass measuring 3.4 x 2.6 cm and was previously 2.4 x 1.7 cm consistent with an enlarging left adrenal metastasis. There has been interval increase in size of the calcification in the pancreatic head of uncertain significance. The kidneys enhance appropriately. The aorta is normal in caliber. There are moderate vascular calcifications. There is no free fluid or adenopathy. Pelvis: The appendix is normal. The urinary bladder is unremarkable. There is no free fluid or adenopathy. IMPRESSION: Worsening adrenal metastasis. Reviewed, Interpreted and Dictated by Elmo Fox III, MD Transcribed by Wen Nichole Authenticated by Elmo Fox III, MD on 05/17/2021 12:55:59 PM [facility]
== END ==
PROVIDERS: PCP Family Medicine; Visit Provider Internal Medicine Medical Oncology
DX: Z03.89 Encounter for observation for other suspected diseases and conditions ruled out (principal); C15.4 Malignant neoplasm of middle third of esophagus
CPT/HCPCS: 71260; 74177; J1642; Q9967

== ENCOUNTER 2021-05-27 09:11 | Outpatient (CLI) | payer MEDICARE, SELFPAY ==
[2021-05-27] VITALS (7 sets, daily range): BP systolic 120–137; BP diastolic 60–75; PULSE 59–64; RESP 20; TEMP 36.4; O2SAT 99–100; BMI 24.2
[2021-05-27 09:41] LABS: Basophils % 0.6 % (0.1-2.0); Eosinophils # 0.1 K/mm3 (0.0-0.4); Eosinophils % 1.6 % (0.1-12.0); Hemoglobin 11.3 g/dL (14.1-18.0); Lymphocytes # 1.8 K/mm3 (0.7-4.5); Lymphocytes % 29.5 % (10-50); Mean Corpuscular HGB Conc 32.4 g/dL (31.8-35.4); Mean Corpuscular Hemoglobin 38.4 pg (27.0-31.2); Mean Corpuscular Volume 118.6 fl (80-94); Monocytes # 0.7 K/mm3 (0.1-1.0); Monocytes % 10.7 % (1.7-9.3); Neutrophils # 3.5 K/mm3 (1.8-7.8); Neutrophils % 57.6 % (37.0-80.0); Platelet Count 161 K/mm3 (142-424); Red Blood Count 2.95 M/mm3 (4.60-6.20); Red Cell Distribution Width 16.5 % (11.5-17.5); White Blood Count 6.1 K/mm3 (4.8-10.8)
[2021-05-27 09:49] LABS: Alanine Aminotransferase 17 U/L (12-78); Albumin Level 3.7 g/dl (3.5-5.0); Albumin/Globulin Ratio 1.1 (1.1-1.8); Alkaline Phosphatase 79 U/L (38-126); Anion Gap 8.9 mEq/L (5-15); Aspartate Amino Transferase 26 U/L (17-59); Bilirubin,Total 0.8 mg/dl (0.2-1.3); Blood Urea Nitrogen 6 mg/dl (9-20); Calcium 8.8 mg/dl (8.4-10.2); Carbon Dioxide 24 mmol/L (22.0-30.0); Chloride 106 mmol/L (98-107); Creatinine Clearance Estimated 78 mL/min (50-200); Estimated Glomerular Filt Rate 134 ml/min (>60); GFR (African American) 163 ML/MIN (>60); Globulin 3.3 g/dL (1.3-3.2); Glucose 87 mg/dl (74-100); Potassium 3.9 mmoL/L (3.5-5.1); Sodium 135 mmol/L (136-145)
== END 2021-05-27 14:00 | disposition home or self-care (01) ==
LOC: INF 09:13
PROVIDERS: PCP Family Medicine; Visit Provider Internal Medicine Medical Oncology
DX: Z51.11 Encounter for antineoplastic chemotherapy (principal); C15.4 Malignant neoplasm of middle third of esophagus
CPT/HCPCS: 80053; 85025; 96413; 96415; J1642; J9263; Q0166

== ENCOUNTER 2021-06-18 08:33 | Outpatient (CLI) | payer MEDICARE, SELFPAY ==
[2021-06-18] VITALS (13 sets, daily range): BP systolic 97–156; BP diastolic 50–90; PULSE 63–81; RESP 16–18; O2SAT 100; BMI 24.5
[2021-06-18 09:14] LABS: Basophils % 0.3 % (0.1-2.0); Chloride 109 mmol/L (98-107); Eosinophils # 0.1 K/mm3 (0.0-0.4); Eosinophils % 1.1 % (0.1-12.0); Hematocrit 36.2 % (42.0-52.0); Hemoglobin 11.7 g/dL (14.1-18.0); Lymphocytes # 1.9 K/mm3 (0.7-4.5); Lymphocytes % 29.3 % (10-50); Mean Corpuscular HGB Conc 32.5 g/dL (31.8-35.4); Mean Corpuscular Hemoglobin 38.6 pg (27.0-31.2); Mean Corpuscular Volume 118.9 fl (80-94); Mean Platelet Volume 8.7 fl (7.4-10.4); Monocytes # 0.7 K/mm3 (0.1-1.0); Monocytes % 10.2 % (1.7-9.3); Neutrophils # 3.9 K/mm3 (1.8-7.8); Neutrophils % 59.1 % (37.0-80.0); Platelet Count 162 K/mm3 (142-424); Potassium 3.9 mmoL/L (3.5-5.1); Red Blood Count 3.04 M/mm3 (4.60-6.20); Red Cell Distribution Width 17.3 % (11.5-17.5); Sodium 135 mmol/L (136-145); White Blood Count 6.5 K/mm3 (4.8-10.8)
[2021-06-18 09:16] LABS: Alanine Aminotransferase 20 U/L (12-78); Alkaline Phosphatase 90 U/L (38-126); Aspartate Amino Transferase 36 U/L (17-59); Bilirubin,Total 1.4 mg/dl (0.2-1.3); Blood Urea Nitrogen 8 mg/dl (9-20); Creatinine Clearance Estimated 79 mL/min (50-200); Estimated Glomerular Filt Rate 112 ml/min (>60); GFR (African American) 136 ML/MIN (>60)
[2021-06-18 09:17] LABS: Albumin Level 3.6 g/dl (3.5-5.0); Anion Gap 8.9 mEq/L (5-15); Calcium 8.6 mg/dl (8.4-10.2); Carbon Dioxide 21 mmol/L (22.0-30.0); Globulin 3.6 g/dL (1.3-3.2); Glucose 83 mg/dl (74-100); Total Protein,Serum 7.2 g/dl (6.3-8.2)
== END 2021-06-18 13:50 | disposition home or self-care (01) ==
LOC: INF 08:34
PROVIDERS: PCP Nurse Practitioner Family; Visit Provider Internal Medicine Medical Oncology
DX: Z51.11 Encounter for antineoplastic chemotherapy (principal); C15.4 Malignant neoplasm of middle third of esophagus
CPT/HCPCS: 80053; 85025; 96413; 96415; J1642; J9263

== ENCOUNTER 2021-07-08 08:41 | Outpatient (CLI) | payer MEDICARE, SELFPAY ==
[2021-07-08] VITALS (8 sets, daily range): BP systolic 116–128; BP diastolic 62–73; PULSE 67–77; RESP 18; TEMP 36.7; O2SAT 98–99; BMI 24.0
[2021-07-08 09:08] LABS: Basophils # 0.1 K/mm3 (0-0.2); Basophils % 0.8 % (0.1-2.0); Eosinophils # 0.1 K/mm3 (0.0-0.4); Eosinophils % 0.8 % (0.1-12.0); Hematocrit 36.1 % (42.0-52.0); Hemoglobin 12.1 g/dL (14.1-18.0); Lymphocytes # 1.7 K/mm3 (0.7-4.5); Lymphocytes % 21.4 % (10-50); Mean Corpuscular HGB Conc 33.5 g/dL (31.8-35.4); Mean Corpuscular Hemoglobin 40.7 pg (27.0-31.2); Mean Corpuscular Volume 121.5 fl (80-94); Mean Platelet Volume 8.7 fl (7.4-10.4); Monocytes % 12.5 % (1.7-9.3); Neutrophils # 5.3 K/mm3 (1.8-7.8); Neutrophils % 64.6 % (37.0-80.0); Platelet Count 185 K/mm3 (142-424); Red Blood Count 2.97 M/mm3 (4.60-6.20); Red Cell Distribution Width 17.2 % (11.5-17.5); White Blood Count 8.1 K/mm3 (4.8-10.8)
[2021-07-08 09:16] LABS: Chloride 106 mmol/L (98-107); Potassium 3.8 mmoL/L (3.5-5.1); Sodium 133 mmol/L (136-145)
[2021-07-08 09:18] LABS: Alanine Aminotransferase 17 U/L (12-78); Aspartate Amino Transferase 30 U/L (17-59); Blood Urea Nitrogen 5 mg/dl (9-20); Creatinine Clearance Estimated 77 mL/min (50-200); Estimated Glomerular Filt Rate 134 ml/min (>60); GFR (African American) 163 ML/MIN (>60)
[2021-07-08 09:19] LABS: Albumin Level 3.7 g/dl (3.5-5.0); Albumin/Globulin Ratio 0.9 (1.1-1.8); Alkaline Phosphatase 104 U/L (38-126); Anion Gap 9.8 mEq/L (5-15); Bilirubin,Total 1.2 mg/dl (0.2-1.3); Calcium 9.6 mg/dl (8.4-10.2); Carbon Dioxide 21 mmol/L (22.0-30.0); Globulin 3.9 g/dL (1.3-3.2); Glucose 101 mg/dl (74-100); Total Protein,Serum 7.6 g/dl (6.3-8.2)
== END 2021-07-08 13:45 | disposition home or self-care (01) ==
LOC: INF 08:44
PROVIDERS: PCP Family Medicine; Visit Provider Internal Medicine Medical Oncology
DX: Z51.11 Encounter for antineoplastic chemotherapy (principal); C15.4 Malignant neoplasm of middle third of esophagus
CPT/HCPCS: 80053; 85025; 96413; 96415; J1642; J9263; Q0166

== ENCOUNTER 2021-07-11 12:25 | Emergency (ER) | payer MEDICARE, SELFPAY ==
[2021-07-11 12:27] VITALS: BP 122/80; PULSE 121; RESP 18; TEMP 36.8; O2SAT 96; BMI 24.3
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
--- NOTE | 2021-07-11 12:43 | PC.NURSE ---
Pt to rad
[2021-07-11 13:00] VITALS: BP 128/83; PULSE 106; RESP 18; O2SAT 95
[2021-07-11 13:30] VITALS: BP 123/79; PULSE 102; RESP 18; O2SAT 94
[2021-07-11 14:17] VITALS: BP 147/68; PULSE 72; RESP 16; TEMP 36.6; O2SAT 98
== END 2021-07-11 14:23 | disposition home or self-care (01) ==
PROVIDERS: Emergency Provider Emergency Medicine; PCP Family Medicine
DX: S43.402A Unspecified sprain of left shoulder joint, initial encounter (principal); R07.81 Pleurodynia; I10 Essential (primary) hypertension; I25.10 Atherosclerotic heart disease of native coronary artery without angina pectoris; I48.91 Unspecified atrial fibrillation; E78.5 Hyperlipidemia, unspecified; E11.9 Type 2 diabetes mellitus without complications; Z79.1 Long term (current) use of non-steroidal anti-inflammatories (NSAID); Z79.51 Long term (current) use of inhaled steroids; Z79.899 Other long term (current) drug therapy; Z95.0 Presence of cardiac pacemaker; Z85.01 Personal history of malignant neoplasm of esophagus; Z92.21 Personal history of antineoplastic chemotherapy; Z82.49 Family history of ischemic heart disease and other diseases of the circulatory system; Z83.438 Family history of other disorder of lipoprotein metabolism and other lipidemia; V49.50XA Passenger injured in collision with unspecified motor vehicles in traffic accident, initial encounter
CPT/HCPCS: 73030; 99284

== ENCOUNTER → 2021-07-14 11:03 | Outpatient (CLI) | payer MEDICARE, SELFPAY ==
--- NOTE | 2021-07-14 11:09 | NM_ITS ---
FINAL REPORT CLINICAL HISTORY: ESOPHAGEAL CANCER COMPARISON: CT chest, abdomen and pelvis May 17, 2021 FINDINGS: Anterior and posterior projection images of the axial and appendicular skeleton were obtained after the intravenous injection of 22.6 mCi technetium 99m MDP. Additional lateral views of the head were also obtained. Increased tracer activity is noted in the left greater than right shoulders felt to represent degenerative change. Increased tracer activity is seen in multiple right posterior ribs corresponding to chronic rib fractures seen on the chest CT. Increased tracer activity is seen at the right L5-S1 level. On the CT images, significant degenerative changes are seen at this level. Increased tracer activity is noted in the right greater than left knees and both ankles also felt to represent degenerative change. No convincing evidence of bony metastatic disease is identified. IMPRESSION: Multifocal areas of abnormal tracer activity felt to be secondary to degenerative change and multiple chronic right rib fractures. No abnormality identified to suggest bony metastatic disease. Authenticated by Elmo Fox III, MD on 07/14/2021 03:03:09 PM [facility]
== END ==
PROVIDERS: PCP Family Medicine; Visit Provider Internal Medicine Medical Oncology
DX: C15.9 Malignant neoplasm of esophagus, unspecified (principal); M25.552 Pain in left hip; M25.551 Pain in right hip
CPT/HCPCS: 78306; A9503

== ENCOUNTER → 2021-07-26 13:24 | Outpatient (CLI) | payer MEDICARE, SELFPAY ==
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
== END ==
PROVIDERS: PCP Family Medicine; Visit Provider Internal Medicine Medical Oncology
DX: C15.4 Malignant neoplasm of middle third of esophagus (principal); C79.51 Secondary malignant neoplasm of bone; M25.552 Pain in left hip
CPT/HCPCS: 72132; Q9967

== ENCOUNTER 2021-07-29 08:35 | Outpatient (CLI) | payer MEDICARE, SELFPAY ==
[2021-07-29 08:37] VITALS: BMI 23.8
[2021-07-29 08:56] LABS: Basophils # 0.1 K/mm3 (0-0.2); Basophils % 0.9 % (0.1-2.0); Eosinophils # 0.1 K/mm3 (0.0-0.4); Hematocrit 37.9 % (42.0-52.0); Hemoglobin 12.5 g/dL (14.1-18.0); Lymphocytes # 1.5 K/mm3 (0.7-4.5); Lymphocytes % 18.3 % (10-50); Mean Corpuscular Hemoglobin 40.8 pg (27.0-31.2); Mean Corpuscular Volume 123.5 fl (80-94); Neutrophils # 5.6 K/mm3 (1.8-7.8); Neutrophils % 67.8 % (37.0-80.0); Platelet Count 212 K/mm3 (142-424); Red Blood Count 3.07 M/mm3 (4.60-6.20); Red Cell Distribution Width 16.1 % (11.5-17.5); White Blood Count 8.3 K/mm3 (4.8-10.8)
[2021-07-29 09:01] LABS: Alanine Aminotransferase 18 U/L (12-78); Albumin Level 3.7 g/dl (3.5-5.0); Alkaline Phosphatase 123 U/L (38-126); Anion Gap 14.7 mEq/L (5-15); Aspartate Amino Transferase 28 U/L (17-59); Bilirubin,Total 1.4 mg/dl (0.2-1.3); Blood Urea Nitrogen 4 mg/dl (9-20); Calcium 9.6 mg/dl (8.4-10.2); Carbon Dioxide 21 mmol/L (22.0-30.0); Chloride 101 mmol/L (98-107); Creatinine Clearance Estimated 76 mL/min (50-200); Estimated Glomerular Filt Rate 134 ml/min (>60); GFR (African American) 163 ML/MIN (>60); Globulin 3.8 g/dL (1.3-3.2); Glucose 97 mg/dl (74-100); Potassium 3.7 mmoL/L (3.5-5.1); Sodium 133 mmol/L (136-145); Total Protein,Serum 7.5 g/dl (6.3-8.2)
== END 2021-07-29 09:32 | disposition home or self-care (01) ==
LOC: INF 08:36
PROVIDERS: PCP Family Medicine; Visit Provider Internal Medicine Medical Oncology
DX: C15.4 Malignant neoplasm of middle third of esophagus (principal); Z45.2 Encounter for adjustment and management of vascular access device
CPT/HCPCS: 36591; 80053; 85025; J1642

== ENCOUNTER 2021-07-30 08:58 | Outpatient (CLI) | payer MEDICARE, SELFPAY ==
[2021-07-30 09:13] VITALS: BP 135/88; PULSE 88; TEMP 36.4; O2SAT 99
[2021-07-30 10:17] VITALS: BP 141/84; PULSE 72; TEMP 36.4; O2SAT 99
== END 2021-07-30 10:17 | disposition home or self-care (01) ==
LOC: INF 08:59
PROVIDERS: PCP Family Medicine; Visit Provider Internal Medicine Medical Oncology
DX: C15.4 Malignant neoplasm of middle third of esophagus (principal); E86.0 Dehydration
CPT/HCPCS: 96360; J1642

== ENCOUNTER → 2021-08-05 08:38 | Outpatient (POV) | payer MEDICARE, SELFPAY ==
[2021-08-05 08:52] VITALS: BP 128/85; PULSE 100; RESP 18; TEMP 36.7; O2SAT 97; BMI 23.6
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
== END ==
PROVIDERS: Visit Provider Student in an Organized Health Care Education/Training Program
DX: G89.3 Neoplasm related pain (acute) (chronic) (principal); C15.9 Malignant neoplasm of esophagus, unspecified; M16.11 Unilateral primary osteoarthritis, right hip; M25.512 Pain in left shoulder; M51.36 Other intervertebral disc degeneration, lumbar region
CPT/HCPCS: 99202; G0463

== ENCOUNTER 2021-08-11 09:10 | Outpatient (CLI) | payer MEDICARE, SELFPAY ==
[2021-08-11] VITALS (7 sets, daily range): BP systolic 109–120; BP diastolic 59–72; PULSE 77–81; RESP 18; TEMP 36.4; O2SAT 98–99; BMI 22.9
[2021-08-11 09:34] LABS: Chloride 103 mmol/L (98-107)
[2021-08-11 09:35] LABS: Basophils # 0.1 K/mm3 (0-0.2); Basophils % 0.9 % (0.1-2.0); Eosinophils # 0.2 K/mm3 (0.0-0.4); Eosinophils % 1.9 % (0.1-12.0); Hematocrit 39.9 % (42.0-52.0); Hemoglobin 12.7 g/dL (14.1-18.0); Lymphocytes # 1.5 K/mm3 (0.7-4.5); Lymphocytes % 17.2 % (10-50); Mean Corpuscular HGB Conc 31.8 g/dL (31.8-35.4); Mean Corpuscular Hemoglobin 39.7 pg (27.0-31.2); Mean Corpuscular Volume 124.6 fl (80-94); Mean Platelet Volume 9.4 fl (7.4-10.4); Monocytes # 0.8 K/mm3 (0.1-1.0); Monocytes % 9.1 % (1.7-9.3); Neutrophils # 6.2 K/mm3 (1.8-7.8); Platelet Count 292 K/mm3 (142-424); Potassium 3.7 mmoL/L (3.5-5.1); Sodium 133 mmol/L (136-145); White Blood Count 8.8 K/mm3 (4.8-10.8)
[2021-08-11 09:37] LABS: Alanine Aminotransferase 22 U/L (12-78); Alkaline Phosphatase 111 U/L (38-126); Aspartate Amino Transferase 31 U/L (17-59); Bilirubin,Total 1.4 mg/dl (0.2-1.3); Blood Urea Nitrogen 6 mg/dl (9-20); Creatinine Clearance Estimated 74 mL/min (50-200); Estimated Glomerular Filt Rate 134 ml/min (>60); GFR (African American) 163 ML/MIN (>60)
[2021-08-11 09:38] LABS: Albumin Level 3.8 g/dl (3.5-5.0); Albumin/Globulin Ratio 0.9 (1.1-1.8); Anion Gap 12.7 mEq/L (5-15); Calcium 9.8 mg/dl (8.4-10.2); Carbon Dioxide 21 mmol/L (22.0-30.0); Globulin 4.1 g/dL (1.3-3.2); Glucose 112 mg/dl (74-100); Total Protein,Serum 7.9 g/dl (6.3-8.2)
== END 2021-08-11 13:31 | disposition home or self-care (01) ==
LOC: INF 09:10
PROVIDERS: PCP Family Medicine; Visit Provider Internal Medicine Medical Oncology
DX: Z51.11 Encounter for antineoplastic chemotherapy (principal); C15.9 Malignant neoplasm of esophagus, unspecified
CPT/HCPCS: 80053; 85025; 96413; 96415; J1642; J9263; Q0166

== ENCOUNTER 2021-08-20 11:05 | Day surgery (SDC) | payer MEDICARE, SELFPAY ==
[2021-08-20 11:11] VITALS: BP 120/78; PULSE 91; RESP 20; TEMP 36.3; O2SAT 89; BMI 23.6
--- NOTE | 2021-08-20 11:29 | HMH.PMPROC ---
- Procedure Date: 08/20/21 Time: 11:29 Anesthesiologist:: Raymundo Garcia CRNA Complications:: None Pre-procedure Diagnosis:: Osteoarthritis right hip. Post-procedure Diagnosis:: Same Indications for Procedure:: This patient is a very pleasant 65-year-old male who comes our clinic today for right intra-articular hip injection of cortisone. Patient rates his pain 8/10. Patient states pain increases intensely when walking any distance. Recent imaging of the hip shows advanced osteoarthritis. Procedure Details:: Details of the procedure were explained to the patient. The patient taken the procedure room placed in the supine position on the fluoroscopy table. The area over the right hip was cleansed using chlorhexidine as a cleansing solution. Using a 22-gauge 3-1/2 inch spinal needle under fluoroscopy guidance the right hip joint was accessed with a ease. After negative aspiration 3 cc of 1% lidocaine +3 cc of 0.25% Marcaine +40 mg of Depo-Medrol was injected. Patient tolerated procedure without difficulty with there are no complications. Plan and Disposition:: Patient was discharged without incident.
[2021-08-20 11:33] VITALS: BP 132/68; PULSE 91; RESP 20
[2021-08-20 11:42] VITALS: BP 119/77; PULSE 91; RESP 20; O2SAT 97
== END 2021-08-20 11:43 | disposition home or self-care (01) ==
LOC: SC.PAINP 11:08
PROVIDERS: PCP Nurse Practitioner Family; Visit Provider Nurse Anesthetist, Certified Registered
DX: M16.11 Unilateral primary osteoarthritis, right hip (principal); M51.36 Other intervertebral disc degeneration, lumbar region; M25.512 Pain in left shoulder; C15.9 Malignant neoplasm of esophagus, unspecified; I48.91 Unspecified atrial fibrillation; I25.10 Atherosclerotic heart disease of native coronary artery without angina pectoris; E11.9 Type 2 diabetes mellitus without complications; E78.5 Hyperlipidemia, unspecified
CPT/HCPCS: 20610; J1040

== ENCOUNTER → 2021-08-23 14:56 | Outpatient (POV) | payer MEDICARE, SELFPAY ==
[2021-08-23 15:22] VITALS: BP 121/77; PULSE 68; RESP 18; TEMP 36.7; O2SAT 97; BMI 23.5
--- NOTE | 2021-08-23 15:34 | HMH.PAINSOAP ---
[facility] Pain Management SOAP Note Subjective:: Patient is a pleasant 66-year-old male who presents today for follow-up after a right intra-articular hip injections. Patient is currently being managed for osteoarthritis of the right hip, left shoulder pain, degenerative disc disease of lumbar spine, esophageal cancer stage IV. After his right hip injection, patient had significant relief of 70 to 80% for 1 to 2 days. He was able to increase his activity during those times. Denies any issues after the injection. Today, patient presents with worsening right hip pain. He cannot tolerate any full activity such as standing and walking. He has trouble getting up from a sitting position. He is complaining of radiating pain from the right upper buttock down to his posterior right knee. He rates his pain today as 8 out of 10. Patient is also diagnosed with esophageal cancer stage IV and is being managed with [place] 7.5 mg twice a day by his PCP. I have discussed this patient with Dr. Johnson and we will continue this medication. His left shoulder pain has gotten better. He has been able to increase his range of motion. Review of Systems: General: No recent weight changes, no fever, no sleep disturbances Respiratory: No cough, no shortness of air, no recurring pulmonary infections Cardiovascular/peripheral vascular: No chest pain, no palpitations, no edema, no shortness of breath Gastrointestinal: No new onset incontinence, normal bowel movements reported Genitourinary: No new onset incontinence Musculoskeletal: Right hip pain Psychiatric: [Normal mood/affect] Neurological: [Denies weakness in extremities], [denies balance issues] Objective:: Physical Exam: General: Alert and oriented x3, no acute distress, pleasant and cooperative Lungs: Respirations even and unlabored, symmetrical chest expansion Eyes: PERRL Musculoskeletal: Flexion and extension of lumbar [spine] somewhat guarded secondary to pain, [antalgic gait noted]; right SI is positive for TYRELL, Jorge's, [place]'s, [place]'s, compression, and distraction. Tender to palpation around the right greater trochanteric bursa Neurological: Speech clear, no gross sensory deficit Assessment:: Degenerative disease of lumbar spine, right-sided sacroiliitis and right greater trochanteric bursitis, esophageal cancer stage IV Plan:: We will schedule the patient for a right SI injection and record trochanteric bursa injection. Risks and benefits of the procedure have been explained to the patient. Patient would like to proceed with the procedure. We will continue the patient's [place] 7.5 mg twice a day. We will provide the patient with 1 month worth of refill. Patient has been instructed to contact the clinic with any concerns before the next appointment. Dr. Johnson has reviewed this note and agrees with this plan of care. This note was dictated using voice recognition software and make contain errors or omissions. [facility] History Medical History: Reports:: Arrhythmia, Atrial Fibrillation, Cancer (esophageal), Coronary Artery Disease, Hyperlipidemia, Hypertension, Internal Pacemaker Denies:: Diabetes Mellitus Type 1, Diabetes Mellitus Type 2, MRSA, Seizures *Have you ever received a pneumonia vaccine?: Yes *Have you received a flu vaccine this season?: No Other Medical History: Reports: Chemotherapy. Denies: Blood Transfusion Reaction Other Surgeries: Yes: Cardiac Catheterization, Cardiac Surgery, Colonoscopy, Coronary Stent, EGD, Pacemaker, Other Amputation: No Fractures: No - *Social History Smoking Status: Current every day smoker Tobacco Type: cigarettes # Packs/Day (cigarettes): 1 Alcohol Intake: never Alcohol Intake Frequency:: 3 or more drinks per day Substance Use Type: denies use *Occupational Status:: other Housing: house Household Members: significant other *Travel in the last 8 weeks: None Family Hx:: No significant family history
== END ==
PROVIDERS: Visit Provider Student in an Organized Health Care Education/Training Program
DX: M16.11 Unilateral primary osteoarthritis, right hip (principal); M51.36 Other intervertebral disc degeneration, lumbar region; M46.1 Sacroiliitis, not elsewhere classified; C15.9 Malignant neoplasm of esophagus, unspecified; M70.61 Trochanteric bursitis, right hip
CPT/HCPCS: 99212; G0463

== ENCOUNTER 2021-08-27 11:22 | Day surgery (SDC) | payer MEDICARE, SELFPAY ==
[2021-08-27 11:33] VITALS: BP 153/92; PULSE 86; RESP 20; TEMP 36.4; O2SAT 96; BMI 23.9
[2021-08-27 11:38] VITALS: BP 160/86; PULSE 99; RESP 20
[2021-08-27 11:51] VITALS: BP 137/77; PULSE 89; RESP 18; O2SAT 97
--- NOTE | 2021-08-27 11:51 | HMH.PMPROC ---
- Procedure Date: 08/27/21 Time: 11:51 Anesthesiologist:: Abdiaziz Johnson MD Complications:: None Pre-procedure Diagnosis:: Sacroiliitis and trochanteric bursitis Post-procedure Diagnosis:: Same Indications for Procedure:: Patient is a pleasant 66-year-old white male who we are treating for right-sided hip pain. He is tender over the right SI joint. Is positive Nic's test on the right side. Is positive Nico test on the right side. He has positive SI joint compression test on the right side. He has a positive distraction test on the right side. He is also tender over the right trochanteric bursa. Today we will do a right SI joint injection and a right trochanteric bursa injection under fluoroscopy. Procedure Details:: Right SI joint injection under fluoroscopy Informed consent was obtained and the risks and benefits of the procedure was going to the patient. Patient was taken to the procedure room. Patient was placed prone on the procedure table. The right hip was prepped using ChloraPrep. The skin and subcutaneous tissues were anesthetized using lidocaine. I placed a 22-gauge spinal needle into the inferior aspect of the right SI joint. Needle placement was confirmed with dye. After this we injected 5 mL bupivacaine 0.25% and Depo-Medrol 40 mg into the right SI joint. The patient tolerated the procedure well with no complication. Trochanteric bursa injection under fluoroscopy informed consent was obtained and the risk and benefits of the procedure was explained to the patient. The patient was taken to the procedure room. The right hip was prepped using ChloraPrep. The skin and subcutaneous tissues were anesthetized using lidocaine. I placed a 22-gauge spinal needle and advanced under fluoroscopic guidance until it contacted the right greater trochanter. Needle placement was confirmed with dye. After this I injected bupivacaine 0.25% 5 mL and Depo-Medrol 40 mg into the right trochanteric bursa. Patient tolerated the procedure well with no complications. Plan and Disposition:: We will follow-up with him in 2 weeks. Will reevaluate symptoms at that time.
== END 2021-08-27 11:52 | disposition home or self-care (01) ==
LOC: SC.PAINP 11:23
PROVIDERS: PCP Nurse Practitioner Family; Visit Provider Anesthesiology
DX: M46.1 Sacroiliitis, not elsewhere classified (principal); M70.61 Trochanteric bursitis, right hip
CPT/HCPCS: 20610; 77002; J1040; Q9966

== ENCOUNTER → 2021-09-13 14:21 | Outpatient (CLI) | payer MEDICARE, SELFPAY ==
--- NOTE | 2021-09-13 14:25 | XR_ITS ---
FINAL REPORT CLINICAL HISTORY: LT HIP PAIN FINDINGS: LEFT HIP 2 views of the left hip are obtained. There is no acute fracture or dislocation. There are minimal hypertrophic changes at the acetabular margin. There is no acute soft tissue abnormality. IMPRESSION: No acute bony abnormality. Reviewed, Interpreted and Dictated by Derik Harry MD Transcribed by Velma Chauhan Authenticated and [facility]
--- NOTE | 2021-09-13 14:25 | XR_ITS ---
FINAL REPORT CLINICAL HISTORY: RT HIP PAIN FINDINGS: RIGHT HIP Two views of the right hip demonstrate no acute fracture or dislocation. There are minimal hypertrophic changes at the acetabular margin. The visualized bony structures are well aligned. No soft tissue abnormality is seen. IMPRESSION: No acute bony abnormality. Reviewed, Interpreted and Dictated by Derik Harry MD Transcribed by Velma Chauhan Authenticated and . [facility]
== END ==
PROVIDERS: PCP Family Medicine; Visit Provider Student in an Organized Health Care Education/Training Program
DX: M25.552 Pain in left hip (principal); M25.551 Pain in right hip
CPT/HCPCS: 73502

== ENCOUNTER → 2021-09-16 08:26 | Outpatient (POV) | payer MEDICARE, SELFPAY ==
[2021-09-16 09:16] VITALS: BP 102/80; PULSE 106; RESP 20; TEMP 36.4; O2SAT 96; BMI 21.5
[2021-09-16 09:28] LABS: Amphetamine/Metha Screen,Urine Negative ng/ml (<1000); Benzodiazepines Screen,Urine Negative ng/ml (<200)
[2021-09-16 09:29] LABS: Barbiturates Screen,Urine Negative ng/ml (<200)
[2021-09-16 09:30] LABS: Cannabinoid Screen,Urine Positive ng/ml (<50); Methadone Screen,Urine Negative ng/ml (<300)
[2021-09-16 09:31] LABS: Cocaine Screen,Urine Negative ng/ml (<300)
[2021-09-16 09:32] LABS: Opiate Screen,Urine Positive ng/ml (<300); Phencyclidine Screen,Urine Negative ng/ml (<25)
--- NOTE | 2021-09-16 11:23 | HMH.PAINSOAP ---
[facility] Pain Management SOAP Note Subjective:: Patient is a pleasant 66-year-old male who presents today for follow-up. He is currently being managed for osteoarthritic arthritis of the right hip, left shoulder pain, degenerative disc disease of lumbar spine, esophageal cancer stage IV, sacroiliitis, trochanteric bursitis. Today he rates his pain a 7 out of 10. He states his pain is in his right hip and leg. He describes his pain as an aching, sharp sensation. He states the pain is so significant that he has no appetite and cannot get out of bed on days. At her last visit we did order x-rays of his right hip. He was requested to review imaging and today's visit. He does manage his pain with gabapentin 300 mg twice daily from Dr. Swapna Prado. He states that he has a chemo treatment every 3 weeks. The latest results showing that the cancer has not metastasized further. He is prescribed hydrocodone 7.5 mg twice a day from our office. He states that with his last refill, he did take his medication occasionally 3-4 times a day because his pain was significantly higher. He has ran out of his [place] prescription earlier than the refill date was due. He is requesting refills at this time. He states these medications help manage the pain with minimal relief. He has tried injective therapy in the past with minimal relief. His Edmar is [phone]. It has been reviewed and is appropriate. Review of Systems: General: No recent weight changes, no fever, no sleep disturbances Respiratory: No cough, no shortness of air, no recurring pulmonary infections Cardiovascular/peripheral vascular: No chest pain, no palpitations, no edema, no shortness of breath Gastrointestinal: No new onset incontinence, normal bowel movements reported Genitourinary: No new onset incontinence Musculoskeletal: Right hip pain, right leg pain Psychiatric: [Normal mood/affect] Neurological: [Denies weakness in extremities], [denies balance issues] Objective:: Physical Exam: General: Alert and oriented x3, no acute distress, pleasant and cooperative Lungs: Respirations even and unlabored, symmetrical chest expansion Eyes: PERRL Musculoskeletal: Flexion and extension of right hip and leg somewhat guarded secondary to pain, [antalgic gait noted] Neurological: Speech clear, no gross sensory deficit Assessment:: Osteoarthritis of right hip, left shoulder pain, degenerative disc disease of lumbar spine, esophageal cancer stage IV, sacroiliitis, trochanteric bursitis Plan:: Patient is still complaining of significant pain in his right hip and right leg. We did residential substance abuse counselor him today regarding his [place] use, and taking it exactly as prescribed. I did also discuss his gabapentin use. He stated he had not been taking them with his pain medication, that he was unaware he could take both at the same time. I have informed him to continue take taking both medications as prescribed. We will be taking over the gabapentin medication orders from Dr. Prado. We will increase his gabapentin 300 mg to 3 times a day and also increase his [place] 7.5 mg to 3 times a day. This [place] increased was verified with Dr. Johnson. Patient was given informational handouts on spinal cord stimulator at today's visit. Patient was informed of risk and benefits of procedure. He would like to proceed forward with a possible trial. Patient is not taking any blood thinners. We will schedule him for a psychiatric evaluation. Patient will return to clinic in 1 month for follow-up and medication refill. Patient has been instructed to contact the clinic with any concerns before the next appointment. Dr. Johnson has reviewed this note and agrees with this plan of care. This note was dictated using voice recognition software and make contain errors or omissions. [facility] History I have reviewed the patient's past medical history: Yes Medical History: Reports:: Arrhythmia, Atrial Fibrillation, Cancer (esophageal), Coronary Artery Disease, Hy
[2021-09-22 14:12] LABS: Codeine Negative (Cutoff=100); Hydrocodone Positive (.); Hydromorphone Positive (.); Morphine Negative (Cutoff=100); Opiates Positive (.)
== END ==
PROVIDERS: Visit Provider Student in an Organized Health Care Education/Training Program
DX: M51.36 Other intervertebral disc degeneration, lumbar region (principal); Z79.891 Long term (current) use of opiate analgesic; M16.11 Unilateral primary osteoarthritis, right hip; M70.60 Trochanteric bursitis, unspecified hip; M46.1 Sacroiliitis, not elsewhere classified; G89.3 Neoplasm related pain (acute) (chronic); C15.9 Malignant neoplasm of esophagus, unspecified
CPT/HCPCS: 80305; 80361; 80365; 99212; G0463; G0480

== ENCOUNTER 2021-09-23 09:13 | Outpatient (CLI) | payer MEDICARE, SELFPAY ==
[2021-09-23] VITALS (12 sets, daily range): BP systolic 93–138; BP diastolic 50–78; PULSE 84–99; RESP 16–18; TEMP 36.3; O2SAT 98; BMI 22.9
[2021-09-23 09:43] LABS: Basophils % 0.4 % (0.1-2.0); Eosinophils # 0.2 K/mm3 (0.0-0.4); Eosinophils % 2.4 % (0.1-12.0); Hematocrit 38.8 % (42.0-52.0); Hemoglobin 12.8 g/dL (14.1-18.0); Lymphocytes # 1.5 K/mm3 (0.7-4.5); Lymphocytes % 14.5 % (10-50); Mean Corpuscular HGB Conc 33.1 g/dL (31.8-35.4); Mean Corpuscular Hemoglobin 37.8 pg (27.0-31.2); Mean Corpuscular Volume 114.2 fl (80-94); Mean Platelet Volume 8.7 fl (7.4-10.4); Monocytes # 0.8 K/mm3 (0.1-1.0); Monocytes % 7.5 % (1.7-9.3); Neutrophils # 7.6 K/mm3 (1.8-7.8); Neutrophils % 75.1 % (37.0-80.0); Platelet Count 310 K/mm3 (142-424); Red Cell Distribution Width 15.4 % (11.5-17.5); White Blood Count 10.1 K/mm3 (4.8-10.8)
[2021-09-23 09:48] LABS: Alanine Aminotransferase 17 U/L (12-78); Albumin Level 3.2 g/dl (3.5-5.0); Albumin/Globulin Ratio 0.8 (1.1-1.8); Alkaline Phosphatase 107 U/L (38-126); Anion Gap 9.6 mEq/L (5-15); Aspartate Amino Transferase 28 U/L (17-59); Bilirubin,Total 0.6 mg/dl (0.2-1.3); Blood Urea Nitrogen 6 mg/dl (9-20); Calcium 9.3 mg/dl (8.4-10.2); Carbon Dioxide 23 mmol/L (22.0-30.0); Chloride 102 mmol/L (98-107); Creatinine Clearance Estimated 73 mL/min (50-200); Estimated Glomerular Filt Rate 165 ml/min (>60); GFR (African American) 200 ML/MIN (>60); Globulin 3.9 g/dL (1.3-3.2); Glucose 105 mg/dl (74-100); Potassium 3.6 mmoL/L (3.5-5.1); Sodium 131 mmol/L (136-145); Total Protein,Serum 7.1 g/dl (6.3-8.2)
== END 2021-09-23 14:50 | disposition home or self-care (01) ==
LOC: INF 09:14
PROVIDERS: PCP Family Medicine; Visit Provider Internal Medicine Medical Oncology
DX: Z51.11 Encounter for antineoplastic chemotherapy (principal); C15.4 Malignant neoplasm of middle third of esophagus
CPT/HCPCS: 80053; 85025; 96413; 96415; J1642; J9263; Q0166

== ENCOUNTER 2021-10-11 11:12 | Outpatient (CLI) | payer MEDICARE, SELFPAY ==
[2021-10-11 11:20] VITALS: BMI 21.1
--- NOTE | 2021-10-11 11:25 | CT_ITS ---
FINAL REPORT CLINICAL HISTORY: ESOPHAGEAL CANCER COMPARISON: May 17, 2021 FINDINGS: Before and after the administration of intravenous contrast, axial images through the chest were performed by computed tomography. This study was performed with techniques to keep radiation doses as low as reasonably achievable, (ALARA). Individualized dose reduction techniques using automated exposure control or adjustment of mA and/or kV according to the patient's size were employed. There are multiple stable borderline size mediastinal and hilar lymph nodes. There is persistent thickening of the mid and distal esophagus that could represent post treatment change or residual neoplasm The heart size is normal. There is a new large right pleural effusion. Lung window images demonstrate moderate changes of emphysema with moderate scarring. There are numerous bilateral pulmonary nodules that have increased in size and number since the prior exam. A 9 mm nodule in the left lower lobe on image 46 previously measured 4 mm. Other nodules are similarly larger. There are multiple chronic right lateral rib fractures. IMPRESSION: Increase in size and number of multiple bilateral pulmonary nodules. Persistent thickening of the mid and distal esophagus could represent post treatment change or residual neoplasm. Stable borderline size mediastinal and hilar lymph nodes.. Reviewed, Interpreted and Dictated by Elmo Fox III, MD Transcribed by Romulo Salas Authenticated and [facility]
--- NOTE | 2021-10-11 11:25 | CT_ITS ---
FINAL REPORT TECHNIQUE: Axial CT images of the abdomen and pelvis were obtained before and after the administration of IV contrast. Oral contrast was administered.This study was performed with techniques to keep radiation doses as low as reasonably achievable (ALARA). Individualized dose reduction techniques using automated exposure control or adjustment of mA and/or kV according to the patient''s size were employed. CLINICAL HISTORY: ESOPHAGEAL CANCER COMPARISON: 05/17/2021 FINDINGS: Abdomen: The heart is normal in size. The liver has an unremarkable appearance, without evidence of mass or biliary duct dilatation. . The spleen is unremarkable. There is a left adrenal mass now measuring 4.3 x 3.0 cm, slightly larger than on prior exam. There is a stable calcification of the pancreatic head. The kidneys enhance normally. The aorta is normal in caliber. There is a new, small amount of ascites. No mass or abnormal fluid collection is seen. New nodularity is seen along the right hemidiaphragm consistent with peritoneal metastasis. There are diffuse vascular calcifications. Precontrast images demonstrate no evidence of nephrolithiasis. Pelvis: The appendix is normal. The urinary bladder is unremarkable. No inflammatory process is seen. There is no evidence of bowel obstruction. There is sclerosis of the L5 vertebral body consistent with bony metastatic disease. IMPRESSION: New nodularity along the right hemidiaphragm consistent with peritoneal metastasis. Slight enlargement of left adrenal mass. New, small amount of ascites. Sclerosis of the L5 vertebral body consistent with bony metastatic disease. Reviewed, Interpreted and Dictated by Elmo Fox III, MD Transcribed by Velma Chauhan Authenticated and [facility]
[2021-10-11 11:44] LABS: Basophils # 0.1 K/mm3 (0-0.2); Basophils % 0.6 % (0.1-2.0); Eosinophils # 0.2 K/mm3 (0.0-0.4); Eosinophils % 1.3 % (0.1-12.0); Hematocrit 40.4 % (42.0-52.0); Hemoglobin 12.5 g/dL (14.1-18.0); Lymphocytes # 1.5 K/mm3 (0.7-4.5); Lymphocytes % 13.5 % (10-50); Mean Corpuscular HGB Conc 30.9 g/dL (31.8-35.4); Mean Corpuscular Hemoglobin 36.9 pg (27.0-31.2); Mean Corpuscular Volume 119.3 fl (80-94); Mean Platelet Volume 9.3 fl (7.4-10.4); Monocytes # 1.2 K/mm3 (0.1-1.0); Monocytes % 10.3 % (1.7-9.3); Neutrophils # 8.4 K/mm3 (1.8-7.8); Neutrophils % 74.2 % (37.0-80.0); Platelet Count 315 K/mm3 (142-424); Red Blood Count 3.38 M/mm3 (4.60-6.20); Red Cell Distribution Width 16.5 % (11.5-17.5); White Blood Count 11.3 K/mm3 (4.8-10.8)
[2021-10-11 11:49] LABS: Chloride 103 mmol/L (98-107); Sodium 135 mmol/L (136-145)
[2021-10-11 11:51] LABS: Blood Urea Nitrogen 13 mg/dl (9-20); Creatinine Clearance Estimated 67 mL/min (50-200); Estimated Glomerular Filt Rate 134 ml/min (>60); GFR (African American) 162 ML/MIN (>60)
[2021-10-11 11:52] LABS: Alanine Aminotransferase 18 U/L (12-78); Albumin Level 3.4 g/dl (3.5-5.0); Albumin/Globulin Ratio 0.9 (1.1-1.8); Alkaline Phosphatase 130 U/L (38-126); Aspartate Amino Transferase 35 U/L (17-59); Bilirubin,Total 1.1 mg/dl (0.2-1.3); Calcium 9.6 mg/dl (8.4-10.2); Carbon Dioxide 25 mmol/L (22.0-30.0); Glucose 98 mg/dl (74-100); Total Protein,Serum 7.4 g/dl (6.3-8.2)
[2021-10-11 12:37] VITALS: BP 111/54; PULSE 76; RESP 18; TEMP 36.6; O2SAT 95
[2021-10-11 13:07] VITALS: BP 109/56; PULSE 77; RESP 18; O2SAT 96
[2021-10-11 13:54] VITALS: BP 107/51; PULSE 77; RESP 18; O2SAT 96
== END 2021-10-11 13:56 | disposition home or self-care (01) ==
LOC: RAD 11:13 → INF 12:33
PROVIDERS: PCP Family Medicine; Visit Provider Internal Medicine Medical Oncology
DX: Z03.89 Encounter for observation for other suspected diseases and conditions ruled out (principal); C15.4 Malignant neoplasm of middle third of esophagus
CPT/HCPCS: 71270; 74178; 80053; 85025; 96360; 96375; J1642; Q9967

== ENCOUNTER 2021-10-13 12:40 | Observation (INO) | payer MEDICARE, SELFPAY ==
[2021-10-13] VITALS (12 sets, daily range): BP systolic 102–149; BP diastolic 56–87; PULSE 72–96; RESP 16–18; TEMP 36.4–36.9; O2SAT 92–100; BMI 22.9; BMI 21.3
--- NOTE | 2021-10-13 13:03 | XR_ITS ---
FINAL REPORT CLINICAL HISTORY: cough COMPARISON: August 23, 2019 FINDINGS: A single portable view of the chest was obtained. A right subclavian chest port is present. A left subclavian pacemaker is present. The heart size and pulmonary vascularity are within normal limits. The mediastinum is within normal limits. There are worsening pulmonary opacities worrisome for bilateral pneumonia. There is a small to moderate right pleural effusion. The bony thorax is intact. IMPRESSION: Worsening pulmonary opacities, worrisome for bilateral pneumonia. Small to moderate right pleural effusion. Reviewed, Interpreted and Dictated by Elmo Fox III, MD Transcribed by Wen Nichole Authenticated and [facility]
--- NOTE | 2021-10-13 13:09 | HMH.EDGENADL ---
ED Disposition Clinical Impression: Pneumonia, Declining functional status Disposition: Admitted as Observation Condition on Discharge: admit Referrals: Danitza Rhodes APRN [Primary Care Provider] - - Critical Care Critical Care Time: No Attestation: On 10/13/21, the high probability of a clinically significant, sudden or life threatening deterioration of the following system(s) required my full and direct attention, intervention and personal management. The time I documented below is in addition to time spent performing reported procedures but includes the following listed in this critical care notation. Medical Decision Making - Ed[place] Inquiry Pt receiving controlled substance: No Vital Signs: 10/13/21 12:40 10/13/21 13:32 10/13/21 14:02 Temperature 98.5 F Temperature Source Oral Pulse Rate 78 74 Pulse Rate [Right Radial] 96 H Respiratory Rate 16 Blood Pressure 128/77 131/80 Blood Pressure [Right Arm] 146/87 H Blood Pressure Mean 103 101 Blood Pressure Mean [Right Arm] 106 Blood Pressure Source [Right Arm] Automatic Cuff Blood Pressure Position [Right Arm] Sitting 02 Sat by Pulse Oximetry 100 96 95 Oxygen Delivery Method Room Air 10/13/21 14:32 10/13/21 15:02 10/13/21 15:32 Temperature Temperature Source Pulse Rate 81 77 81 Pulse Rate [Right Radial] Respiratory Rate 18 18 Blood Pressure 149/81 H 116/72 122/67 Blood Pressure [Right Arm] Blood Pressure Mean 103 91 87 Blood Pressure Mean [Right Arm] Blood Pressure Source [Right Arm] Blood Pressure Position [Right Arm] 02 Sat by Pulse Oximetry 93 L 96 92 L Oxygen Delivery Method Room Air - Lab Data Lab Results 10/13/21 13:06: WBC 10.9 H, RBC 3.09 L, Hgb 11.1 L, Hct 36.1 L, MCV 116.7 H, MCH 35.8 H, MCHC 30.7 L, RDW 16.8, Plt Count 241, MPV 8.7, Neut % (Auto) 80.4 H, Lymph % (Auto) 10.1, [place] % (Auto) 8.8, Eos % (Auto) 0.4, Baso % (Auto) 0.3, Neut # (Auto) 8.7 H, Lymph # (Auto) 1.1, [place] # (Auto) 1.0, Eos # (Auto) 0.0, Baso # (Auto) 0.0 10/13/21 13:06: Sodium 135 L, Potassium 3.9, Chloride 104, Carbon Dioxide 24, Anion Gap 10.9, BUN 13, Creatinine 0.60 L, Estimated Creat Clear 73, Estimated GFR 134, Est GFR ( Amer) 162, Glucose 107 H, Calcium 9.2, Total Bilirubin 0.6, AST 34, ALT 19, Alkaline Phosphatase 103, Total Protein 6.8, Albumin 3.2 L, Globulin 3.6 H, Albumin/Globulin Ratio 0.9 L 10/13/21 13:06: Lactate 1.2 10/13/21 13:15: SARS-CoV-2 (PCR) Not detected, Influenza A Untype (PCR) Not detected, Influenza Type B (PCR) Not detected 10/13/21 13:52: Urine Color Yellow, Urine Appearance Clear, Urine pH 7.0, Ur Specific [place] 1.010, Urine Protein Negative, Urine Glucose (UA) Negative, Urine Ketones Trace, Urine Blood Negative, Urine Nitrate Negative, Urine Bilirubin 1+ A, Urine Urobilinogen 1.0, Ur Leukocyte Esterase Negative, Urine RBC None, Urine WBC None, Ur Squamous Epith Cells None, Urine Bacteria Trace Result diagrams: 10/13/21 13:06 10/13/21 13:06 Orders (Tests/Meds): ED MEDICATIONS Generic Name Dose Route Start Last Admin Trade Name Freq PRN Reason Stop Dose Admin Azithromycin 500 mg/ Sodium 250 mls @ 250 mls/hr 10/13/21 15:30 Chloride IV 10/27/21 15:29 Q24H GENEVIEVE Ceftriaxone Sodium 1 gm/ 50 mls @ 100 mls/hr 10/13/21 15:30 10/13/21 15:31 Sodium Chloride IV 10/27/21 15:29 100 mls/hr Q24H GENEVIEVE Administration Clindamycin Phosphate 600 mg/ 104 mls @ 100 mls/hr 10/13/21 15:45 Sodium Chloride IV 10/27/21 15:44 Q6H GENEVIEVE Discontinued Medications Generic Name Dose Route Start Last Admin Trade Name Freq PRN Reason Stop Dose Admin Lactated Ringer's 1,000 mls @ 999 mls/hr 10/13/21 13:15 10/13/21 13:07 Lactated Ringer's 1000 Ml Bag IV 10/13/21 14:15 999 mls/hr .Q1H1M GENEVIEVE Administration Ondansetron HCl 4 mg 10/13/21 13:03 10/13/21 13:07 Ondansetron 4mg/2ml Vial IV 10/13/21 13:04 4 mg ONCE ONE Administration ORDERS Category Don
[2021-10-13 13:19] LABS: Coronavirus 19, PCR Not Detected (NotDetected); Influenza A, PCR Not Detected (NotDetected); Influenza B, PCR Not Detected (NotDetected)
[2021-10-13 13:20] LABS: Basophils % 0.3 % (0.1-2.0); Eosinophils % 0.4 % (0.1-12.0); Hematocrit 36.1 % (42.0-52.0); Hemoglobin 11.1 g/dL (14.1-18.0); Lymphocytes # 1.1 K/mm3 (0.7-4.5); Lymphocytes % 10.1 % (10-50); Mean Corpuscular HGB Conc 30.7 g/dL (31.8-35.4); Mean Corpuscular Hemoglobin 35.8 pg (27.0-31.2); Mean Corpuscular Volume 116.7 fl (80-94); Mean Platelet Volume 8.7 fl (7.4-10.4); Monocytes % 8.8 % (1.7-9.3); Neutrophils # 8.7 K/mm3 (1.8-7.8); Neutrophils % 80.4 % (37.0-80.0); Platelet Count 241 K/mm3 (142-424); Red Blood Count 3.09 M/mm3 (4.60-6.20); Red Cell Distribution Width 16.8 % (11.5-17.5); White Blood Count 10.9 K/mm3 (4.8-10.8)
[2021-10-13 13:27] LABS: Chloride 104 mmol/L (98-107); Potassium 3.9 mmoL/L (3.5-5.1); Sodium 135 mmol/L (136-145)
[2021-10-13 13:29] LABS: Alanine Aminotransferase 19 U/L (12-78); Alkaline Phosphatase 103 U/L (38-126); Aspartate Amino Transferase 34 U/L (17-59); Bilirubin,Total 0.6 mg/dl (0.2-1.3); Blood Urea Nitrogen 13 mg/dl (9-20); Creatinine Clearance Estimated 73 mL/min (50-200); Estimated Glomerular Filt Rate 134 ml/min (>60); GFR (African American) 162 ML/MIN (>60)
[2021-10-13 13:30] LABS: Albumin Level 3.2 g/dl (3.5-5.0); Albumin/Globulin Ratio 0.9 (1.1-1.8); Anion Gap 10.9 mEq/L (5-15); Calcium 9.2 mg/dl (8.4-10.2); Carbon Dioxide 24 mmol/L (22.0-30.0); Globulin 3.6 g/dL (1.3-3.2); Glucose 107 mg/dl (74-100); Lactic Acid 1.2 mmol/L (0.7-2.1); Total Protein,Serum 6.8 g/dl (6.3-8.2)
--- NOTE | 2021-10-13 13:58 | ECG_ITS ---
APPROVED REPORT Exam: Resting ECG HR:72 bpm ECG Measurements Heart Rate 72 AXES [place] 151 P 77 QRSd 88 QRS 76 QT 363 T 48 QTc 387 Conclusion SINUS RHYTHM NORMAL ECG UNCONFIRMED REPORT Electronically signed by : Paolo Diaz MD 10/13/2021 20:59:47
[2021-10-13 14:01] LABS: Microscopic, Urine URINE MICROSCOPIC (MICROSCOPIC)
[2021-10-13 14:08] LABS: Appearance,Urine CLEAR (Clear); Blood, Urine Negative (Negative); Color,Urine YELLOW (Yellow); Glucose,Urine (UA) Negative (Negative); Ketones,Urine TRACE (Negative); Leukocyte Esterase,Urine Negative (Negative); Nitrate,Urine Negative (Negative); Protein,Urine Negative (Negative)
[2021-10-13 14:13] LABS: Bilirubin,Urine 1+ (Negative)
[2021-10-13 14:20] LABS: Bacteria,Urine Trace /lpf
--- NOTE | 2021-10-13 14:20 | PC.NURSE ---
rounded on pts room. asked pt if any needs at this time. Pt asked for a blanket, retrived a blanket and gave to the pt. no other needs at this time.
--- NOTE | 2021-10-13 14:54 | PC.NURSE ---
checked on pt at this time, pt resting in bed, states no needs at this time. visitor at BS. Will continue to monitor
--- NOTE | 2021-10-13 15:36 | PC.NURSE ---
ANNABEL BUENO speaking with Dr. Diaz who is manager occupational for service pts.
--- NOTE | 2021-10-13 15:39 | PC.NURSE ---
notified care management of admission, spoke with paige, stated pt will be and OBS admit. Notified ER MD
--- NOTE | 2021-10-13 15:56 | PC.NURSE ---
pt medications reconciled with pt [facility] [place]) and with pt and pts . Updated in computer at this time.
--- NOTE | 2021-10-13 16:25 | PC.NURSE ---
pillow placed under pt buttocks for comfort, pt reports he was having pain in thompson hips
--- NOTE | 2021-10-13 16:36 | PC.NURSE ---
Called report to Stephani.
--- NOTE | 2021-10-13 17:29 | HMH.HP ---
*Admission Date: 10/13/21 *Chief complaint: Weakness *History of present illness: Medical Decision Narrative: In summary this is a 66-year-old female with past medical history described below presents emergency department for weakness and decreased p.o. intake in the setting of metastatic esophageal cancer on chemotherapy. Patient is hemodynamically stable nontoxic-appearing upon arrival, elevated heart rate but does not meet criteria for true tachycardia, afebrile. Differential diagnosis includes metabolic abnormalities, worsening cancer, among others. Work-up will be conducted with hematologic labs, urinalysis, chest x-ray, EKG. work-up is reviewed by me, hematologic labs are nonactionable, no evidence of urinary tract infection. Chest x-ray is concerning for pneumonia right greater than left. For this patient will be started on ceftriaxone, azithromycin, clindamycin. Upon repeat evaluation patient was saturating 90% on room air. The case was discussed with internal medicine they will admit the patient their service for continued evaluation at this time. Above note per ER. Daughter and state the patient has a chronic and recurrent condition of weakness and has been admitted to infusion department for IV fluids multiple times. They wonder about home health for IV fluids and the possibility of oxygen at home. Discussed case with ER physician. Reviewed chest x-ray. Patient appears to have pneumonia, high risk of aspiration/obstruction. Started on antibiotics and admitted. [facility] History I have reviewed the patient's past medical history: Yes Medical History: Reports:: Arrhythmia, Atrial Fibrillation, Cancer (esophageal), Coronary Artery Disease, Hyperlipidemia, Hypertension, Internal Pacemaker Denies:: Diabetes Mellitus Type 1, Diabetes Mellitus Type 2, MRSA, Seizures *Have you ever received a pneumonia vaccine?: No *Have you received a flu vaccine this season?: No Other Medical History: Reports: Chemotherapy. Denies: Blood Transfusion Reaction Other Surgeries: Yes: Cardiac Catheterization, Cardiac Surgery, Colonoscopy, Coronary Stent, EGD, Pacemaker, Other Amputation: No Fractures: No - *Social History Smoking Status: Current every day smoker Tobacco Type: cigarettes # Packs/Day (cigarettes): 1 Alcohol Intake: never Alcohol Intake Frequency:: 3 or more drinks per day Substance Use Type: denies use *Occupational Status:: disabled Housing: house Household Members: spouse *Travel in the last 8 weeks: None Family Hx:: Coronary Artery Disease, Heart Attack, Hyperlipidemia, Hypertension Review of Systems - Review of Systems Review of systems:: pertinent systems reviewed and negative unless documented below Meds Home Medications Medication Instructions Recorded Confirmed Type finasteride 5 mg tablet 5 mg PO DAILY tab 03/29/19 10/13/21 History Capecitabine [Xeloda] 1,500 mg PO BID 08/29/19 10/13/21 History megestrol 40 mg tablet 80 mg PO BID 01/27/21 10/13/21 History metoprolol tartrate 50 mg tablet 50 mg PO BID 01/27/21 10/13/21 History Gabapentin 300 mg PO TID #90 cap 09/16/21 10/13/21 Rx Hydrocodone/Acetaminophen 1 tab PO TID 10/13/21 10/13/21 History [Hydrocodone-Acetamin 7.5-325] Allergies Allergy/AdvReac Type Severity Reaction Status Date / Time No Known Allergies Allergy Verified 09/23/21 09:37 Exam Vital signs and Labs for Last 24 Hours: Temp Pulse Resp BP Pulse Ox 98.5 F 82 17 130/86 94 L 10/13/21 16:44 10/13/21 16:44 10/13/21 16:44 10/13/21 16:44 10/13/21 16:02 Laboratory Results - last 24 hr 10/13/21 13:06: WBC 10.9 H, RBC 3.09 L, Hgb 11.1 L, Hct 36.1 L, MCV 116.7 H, MCH 35.8 H, MCHC 30.7 L, RDW 16.8, Plt Count 241, MPV 8.7, Neut % (Auto) 80.4 H, Lymph % (Auto) 10.1, [place] % (Auto) 8.8, Eos % (Auto) 0.4, Baso % (Auto) 0.3, Neut # (Auto) 8.7 H, Lymph # (Auto) 1.1, [place] # (Auto) 1.0, Eos # (Auto) 0.0, Baso # (Auto) 0.0 10/13/21 13:06: Sodium 135 L, Potassium 3.9, Chloride 104,
--- NOTE | 2021-10-14 03:59 | PC.NURSE ---
Addendum entered by Kerri Chisholm, RNA 10/14/21 04:33: Portacath accessed, right chest. Original Note: Pt is alert and oriented x4, pt has been sleeping through the night with complaints of pain one time, treated per may. Pt lung sounds bilaterally rales and inspiratory rhonchi. Bowel sounds active, abdomen soft and non tender. Pt O2 sat >95% on room air. Pt receiving IV antibiotic this shift and NS @75. Pt ambulated to the restroom with 2 assist. Call light in reach and working.
[2021-10-14 04:00] VITALS: BP 111/69; PULSE 73; RESP 16; TEMP 36.7; O2SAT 92
[2021-10-14 05:22] VITALS: BMI 21.2
[2021-10-14 05:32] LABS: POC Glucose,Bedside 88 (70-110)
--- NOTE | 2021-10-14 06:00 | XR_ITS ---
PROCEDURE INFORMATION: Exam: XR Chest Exam date and time: 10/14/2021 5:27 AM Age: 66 years old Clinical indication: Condition or disease; Lung condition and disease; Pneumonia TECHNIQUE: Imaging protocol: Radiologic exam of the chest. Views: 1 view. COMPARISON: CR XR CHEST PORTABLE 10/13/2021 2:00 PM FINDINGS: Tubes, catheters and devices: There is a pacemaker in place from a left-sided approach. There is a port in place from a right IJ approach with the distal tip in the atrial caval junction. Lungs: There is focal right basilar consolidation. A right basilar mass associated with compressive atelectasis cannot be excluded. Peripheral nodules throughout the left lung appears stable Pleural spaces: There is a moderate sized right pleural effusion which is slightly enlarged. Heart/Mediastinum: No cardiomegaly. Bones/joints: There are healed right rib fractures. IMPRESSION: Interval enlargement of a right pleural effusion.
[2021-10-14 06:29] VITALS: PULSE 76; PULSE 79
[2021-10-14 06:43] LABS: Basophils % 0.3 % (0.1-2.0); Eosinophils # 0.1 K/mm3 (0.0-0.4); Eosinophils % 0.6 % (0.1-12.0); Hemoglobin 10.3 g/dL (14.1-18.0); Lymphocytes # 1.3 K/mm3 (0.7-4.5); Lymphocytes % 14.3 % (10-50); Mean Corpuscular HGB Conc 31.1 g/dL (31.8-35.4); Mean Corpuscular Hemoglobin 37.1 pg (27.0-31.2); Mean Corpuscular Volume 119.1 fl (80-94); Mean Platelet Volume 9.3 fl (7.4-10.4); Monocytes % 10.7 % (1.7-9.3); Neutrophils # 6.7 K/mm3 (1.8-7.8); Neutrophils % 74.1 % (37.0-80.0); Platelet Count 190 K/mm3 (142-424); Red Blood Count 2.77 M/mm3 (4.60-6.20); Red Cell Distribution Width 16.7 % (11.5-17.5); White Blood Count 9.1 K/mm3 (4.8-10.8)
[2021-10-14 07:08] LABS: Chloride 109 mmol/L (98-107); Sodium 135 mmol/L (136-145)
[2021-10-14 07:09] LABS: Potassium 3.6 mmoL/L (3.5-5.1)
[2021-10-14 07:11] LABS: Blood Urea Nitrogen 9 mg/dl (9-20); Creatinine Clearance Estimated 67 mL/min (50-200); Estimated Glomerular Filt Rate 134 ml/min (>60); GFR (African American) 162 ML/MIN (>60)
[2021-10-14 07:12] LABS: Calcium 8.6 mg/dl (8.4-10.2); Glucose 94 mg/dl (74-100)
--- NOTE | 2021-10-14 07:43 | P.CONPHA_ITS ---
[facility] Pharmacy VTE Monitoring - Patient Demographics Admission date: 10/14/21 Report Date: 10/14/21 Time: 07:43 Allergies/Adverse Reactions: Patient Allergies No Known Allergies Allergy (Verified 09/23/21 09:37) Height: 1.78 m Weight: 67.386 kg Patient Problems: Current Active Problems Esophageal cancer, stage IV (Acute) Pneumonia (Acute) Declining functional status (Acute) Panlobular emphysema (Acute) Alcohol use disorder (Acute) Coronary artery disease (Acute) - VTE Risk Labs: VTE Related Lab Results Hgb 10.3 g/dL (14.1-18.0) L 10/14/21 06:28 Hct 33.0 % (42.0-52.0) L 10/14/21 06:28 Plt Count 190 K/mm3 (142-424) 10/14/21 06:28 BUN 9 mg/dl (9-20) D 10/14/21 06:28 Creatinine 0.60 mg/dl (0.66-1.25) L 10/14/21 06:28 Estimated Creat Clear 67 mL/min (50-200) 10/14/21 06:28 Was VTE Risk Assessment Performed: Yes VTE Score: 3 VTE Risk Level: Low Risk Clinical Trial Participant: No - Prophylaxis VTE Prophylaxis Ordered?: Yes Types of VTE Prophylaxis: TEDS Knee High
[2021-10-14 08:00] VITALS: BP 105/67; PULSE 93; RESP 17; TEMP 36.6; O2SAT 91; O2SAT 93
[2021-10-14 08:03] LABS: Anion Gap 5.6 mEq/L (5-15); Carbon Dioxide 24 mmol/L (22.0-30.0)
--- NOTE | 2021-10-14 08:49 | HMH.DCSUM ---
General - General Admission date:: 10/13/21 Discharge date: 10/14/21 HPI HPI: Medical Decision Narrative: In summary this is a 66-year-old female with past medical history described below presents emergency department for weakness and decreased p.o. intake in the setting of metastatic esophageal cancer on chemotherapy. Patient is hemodynamically stable nontoxic-appearing upon arrival, elevated heart rate but does not meet criteria for true tachycardia, afebrile. Differential diagnosis includes metabolic abnormalities, worsening cancer, among others. Work-up will be conducted with hematologic labs, urinalysis, chest x-ray, EKG. work-up is reviewed by me, hematologic labs are nonactionable, no evidence of urinary tract infection. Chest x-ray is concerning for pneumonia right greater than left. For this patient will be started on ceftriaxone, azithromycin, clindamycin. Upon repeat evaluation patient was saturating 90% on room air. The case was discussed with internal medicine they will admit the patient their service for continued evaluation at this time. Above note per ER. Daughter and state the patient has a chronic and recurrent condition of weakness and has been admitted to infusion department for IV fluids multiple times. They wonder about home health for IV fluids and the possibility of oxygen at home. Discussed case with ER physician. Reviewed chest x-ray. Patient appears to have pneumonia, high risk of aspiration/obstruction. Started on antibiotics and admitted. Hospital Course Hospital Course: Patient was admitted, overnight was given antibiotics for community-acquired pneumonia and clindamycin for possible aspiration. He was given Remeron last night and slept well. This morning he has eaten half of his breakfast which his says is an improvement for him at home. He is breathing easily without oxygen requirements. Nebulizers overnight seem to help his rhonchi. Plan will be as follows PT/OT evaluation to see if home health referral would be indicated. We will prescribe nebulizers and DuoNebs for home use. I will send him home on Levaquin therapy to minimize pill burden to treat this community-acquired pneumonia. I do not think after observing him there is as much risk of aspiration as I feared on admission. Patient's family is interested in pursuing regular IV fluid administration. And I discussed that this would need to be arranged through their primary care office. He will follow-up with oncology for his esophageal cancer as well as with his primary care office next week. Objective Vital signs: Temp Pulse Resp BP Pulse Ox 98.1 F 76 16 111/69 92 L 10/14/21 04:00 10/14/21 06:29 10/14/21 04:00 10/14/21 04:00 10/14/21 04:00 no acute distress, thin, cachectic, chronically ill appearing - *Routine HEENT Exam Head: Present: normocephalic Eye: Present: EOMI, PERRL ENT: Present: mucous membranes moist - *Routine Neck Exam Present: supple - *Routine Respiratory Exam Present: rhonchi - *Routine Cardiovascular Exam Present: RRR - *Routine Abdominal Exam Present: soft, normoactive bowel sounds. Absent: tenderness - *Routine Extremities Exam Absent: cyanosis, clubbing, edema - *Routine Skin Exam Present: warm. Absent: rash - Detailed Eye Exam Eyelids: Bilateral normal inspection Results Labs on day of discharge: Labs from last 24 hours 10/14/21 10/14/21 10/14/21 06:28 06:28 05:25 WBC 9.1 RBC 2.77 L Hgb 10.3 L Hct 33.0 L MCV 119.1 H MCH 37.1 H MCHC 31.1 L RDW 16.7 Plt Count 190 MPV 9.3 Neut % (Auto) 74.1 Lymph % (Auto) 14.3 [place] % (Auto) 10.7 H Eos % (Auto) 0.6 Baso % (Auto) 0.3 Neut # (Auto) 6.7 Lymph # (Auto) 1.3 [place] # (Auto) 1.0 Eos # (Auto) 0.1 Baso # (Auto) 0.0 Sodium 135 L Potassium 3.6 Chloride 109 H Carbon Dioxide 24 Anion Gap 5.6 BUN 9 D
[2021-10-14 09:30] VITALS: PULSE 65; RESP 18
--- NOTE | 2021-10-14 09:42 | HMH.OTEV ---
OT Inpatient Evaluation Rehab OT IP Evaluation Start: 10/14/21 08:36 Freq: ONCE Status: Complete Protocol: Document 10/14/21 09:24 JOEY (Rec: 10/14/21 09:42 [facility] [id number]) Rehab OT IP Assessment Subjective History Pt oriented x 3 on arrival. Pt agreeable to engage in therapy evaluation. Pt was admitted admitted via ED on 12/25 due to PNA and decline in functional status. Pt reports prior to being admitted to the hospital he lived at home with family. Pt claims he was independent with all ADLs such as dressing , bathing, and eating. He was dependent upon his family for completion of all IADLs. Pt did not use any type of AE during ambulation. The following information is copied from history and physical report: In summary this is a 66-year- old female with past medical history described below presents emergency department for weakness and decreased p.o . intake in the setting of metastatic esophageal cancer on chemotherapy. Patient is hemodynamically stable nontoxic-appearing upon arrival, elevated heart rate but does not meet criteria for true tachycardia, afebrile. Differential diagnosis includes metabolic abnormalities, worsening cancer, among others. Work-up will be conducted with hematologic labs, urinalysis, chest x-ray, EKG. work-up is reviewed by me, hematologic labs are nonactionable, no evidence of urinary tract infection. Chest x-ray is concerning for pneumonia right greater than left. For this patient will be started on
--- NOTE | 2021-10-14 09:48 | SW/DCPLANNER ---
Addendum entered by Araceli Davis 10/14/21 11:58: Patient/family has decided to discharge home with Hospice services. Patient will discharge home today and I will have [facility] follow up with patient at home. Patient information has been faxed to Dorita dutton/ [facility]. Original Note: Patient information/order has been faxed to [facility] for home health services. I will follow up with [facility] once patient information is reviewed. Patient will discharge home later today.
--- NOTE | 2021-10-14 09:49 | PC.NURSE ---
courtesy tech round: Patient was assisted x1 to bathroom and back to bed. Unsteady gait noted and nurse notified.
--- NOTE | 2021-10-14 09:49 | PC.NURSE ---
Patient was assisted to walk to and from the restroom. Patient stumbled a little once we got to the restroom until he was able to catch his balance and had no trouble on the way back to the bed. Chyna Andersen SRNA
--- NOTE | 2021-10-14 10:02 | DIET.NUTRFU ---
Patient is being discharge today, he has advanced esophageal CA with mets, receiving chemo tx. He has lost 20# since June this year d/t lack of appetite. He is on megace and remeron was added this admit to help with sleep and appetite. During rounds today he reported he slept better. He also reported he was able to eat something last night and drank some water this morning with no difficulty. Plan is to discharge home with family and home health. Patient does trigger for PCM, case packer aware. No discharge needs at this time
--- NOTE | 2021-10-14 10:02 | HMH.PTEV ---
Physical Therapy Evaluation Rehab PT IP Evaluation Start: 10/14/21 08:36 Freq: ONCE Status: Active Protocol: Document 10/14/21 09:30 KRYSTAL (Rec: 10/14/21 10:01 [email or web address] [id number]) Subjective/History History History This is the initial PT IP evaluation for Emiliano Li. Pt is a 66 y/o male with coronary artery disease and stage IV metastatic esophageal cancer currently on chemotherapy, admitted to [facility] to monitor acute pneumonia suspected from chest x-ray, with high risk of aspiration/obstruction. Written by Perlita Gaona, SPT Subjective Subjective Pt lives in one-story house with spouse and 2 children, his son lives there full-time. House has 5 steps to enter from porch with a handrail. Prior to admission, Pt was IND w/ personal care ADLS including bathing and toileting. IADLS and ADLS such as laundry, cooking, housework etc. completed by spouse. Rehab PT IP Eval Objective Appearance Patient Behavior Appropriate,Fatigued Patient Orientation Person,Place,Year,Situation Difficulty following instructions none Speech Pattern Appropriate,Soft-Spoken, Mumbled Ambulation Patient Able to Ambulate Yes Ambulation Observation IP General Gait Pattern Observation Wide Based Gait,Shuffling Step Ambulation Distance (feet) 3 Ambulation Assistive Device None Ambulation Ability Supervision/Stand by,Contact Guard/Hand Hold Balance Ability to Arise Able, uses arms to help Sitting Balance Steady, safe Standing Balance Steady, wide stance Dynamic Sitting Balance Ability Fair Dynamic Standing Balance Ability Fair Transfers Bed Transfer Ability Independent Chair Transfer Ability Supervision/Stand by,Contact Guard/Hand Hold Sit to Stand Bed Transfer Ability Independent,Supervision/Stand by MMT All Extremities PT MMT ABN Abnormal MMT Grade Weakness 2nd to chemotherapy, pneumonia Rehab PT IP prob,goal
--- NOTE | 2021-10-14 11:59 | PC.NURSE ---
Spoke with Dr. Eve mcdaniels - patient requesting Hospice services and wants to go home. Care Management notified. Will move forward with discharge.
[2021-10-14 12:00] VITALS: BP 105/68; PULSE 75; RESP 17; TEMP 36.3; O2SAT 93
--- NOTE | 2021-10-14 12:28 | HMH.CONS ---
*Admission Date: 10/14/21 *Reason for consult:: met esophageal cancer *History of present illness: 66 yo wm with h/o met esophageal cancer. he has been on chemo for more than 2 years. now hospitalized with sob and weakness. SO at bedside. recently losing weight and with continued back pain. recent ct scan reviewed showing progression of disease in adrenal met, pulm nodules, ascites. he also has a large pleural effusion. [facility] History Medical History: Reports:: Arrhythmia, Atrial Fibrillation, Cancer (esophageal), Coronary Artery Disease, Hyperlipidemia, Hypertension, Internal Pacemaker Denies:: Diabetes Mellitus Type 1, Diabetes Mellitus Type 2, MRSA, Seizures *Have you ever received a pneumonia vaccine?: No *Have you received a flu vaccine this season?: No Other Medical History: Reports: Chemotherapy. Denies: Blood Transfusion Reaction Other Surgeries: Yes: Cardiac Catheterization, Cardiac Surgery, Colonoscopy, Coronary Stent, EGD, Pacemaker, Other Amputation: No Fractures: No - *Social History Smoking Status: Current every day smoker Tobacco Type: cigarettes # Packs/Day (cigarettes): 1 Alcohol Intake: never Alcohol Intake Frequency:: 3 or more drinks per day Substance Use Type: denies use *Occupational Status:: disabled Housing: house Household Members: spouse *Travel in the last 8 weeks: None Family Hx:: Coronary Artery Disease, Heart Attack, Hyperlipidemia, Hypertension Review of Systems - *Respiratory Reports shortness of breath - *Musculoskeletal Reports back pain Meds Home Medications Medication Instructions Recorded Confirmed Type finasteride 5 mg tablet 5 mg PO DAILY tab 03/29/19 10/13/21 History Capecitabine [Xeloda] 1,500 mg PO BID 08/29/19 10/13/21 History megestrol 40 mg tablet 80 mg PO BID 01/27/21 10/13/21 History metoprolol tartrate 50 mg tablet 50 mg PO TID 01/27/21 10/14/21 History Gabapentin 300 mg PO TID #90 cap 09/16/21 10/13/21 Rx Hydrocodone/Acetaminophen 1 tab PO TID 10/13/21 10/13/21 History [Hydrocodone-Acetamin 7.5-325] Atorvastatin Calcium [Lipitor 40mg 40 mg PO HS 10/14/21 10/14/21 History Tab] Ipratropium/Albuterol Sulfate 3 ml IH TID #90 unspec 10/14/21 Rx [Duoneb 3mL neb] Mirtazapine [Remeron 15mg tablet] 15 mg PO HS #30 tab 10/14/21 Rx Mirtazapine [Remeron 15mg tablet] 15 mg PO HS 30 Days tab 10/14/21 Rx levoFLOXacin [Levaquin 500mg 500 mg PO DAILY #7 tab 10/14/21 Rx tab] Allergies Allergy/AdvReac Type Severity Reaction Status Date / Time No Known Allergies Allergy Verified 09/23/21 09:37 Exam Vital signs and Labs for Last 24 Hours: Temp Pulse Resp BP Pulse Ox 97.4 F L 75 17 105/68 L 93 L 10/14/21 12:00 10/14/21 12:00 10/14/21 12:00 10/14/21 12:00 10/14/21 12:00 Laboratory Results - last 24 hr 10/13/21 13:06: WBC 10.9 H, RBC 3.09 L, Hgb 11.1 L, Hct 36.1 L, MCV 116.7 H, MCH 35.8 H, MCHC 30.7 L, RDW 16.8, Plt Count 241, MPV 8.7, Neut % (Auto) 80.4 H, Lymph % (Auto) 10.1, Walker % (Auto) 8.8, Eos % (Auto) 0.4, Baso % (Auto) 0.3, Neut # (Auto) 8.7 H, Lymph # (Auto) 1.1, Walker # (Auto) 1.0, Eos # (Auto) 0.0, Baso # (Auto) 0.0 10/13/21 13:06: Sodium 135 L, Potassium 3.9, Chloride 104, Carbon Dioxide 24, Anion Gap 10.9, BUN 13, Creatinine 0.60 L, Estimated Creat Clear 73, Estimated GFR 134, Est GFR ( Amer) 162, Glucose 107 H, Calcium 9.2, Total Bilirubin 0.6, AST 34, ALT 19, Alkaline Phosphatase 103, Total Protein 6.8, Albumin 3.2 L, Globulin 3.6 H, Albumin/Globulin Ratio 0.9 L 10/13/21 13:06: Lactate 1.2 10/13/21 13:15: SARS-CoV-2 (PCR) Not detected, Influenza A Untype (PCR) Not detected, Influenza Type B (PCR) Not detected 10/13/21 13:52: Urine Color Yellow, Urine Appearance Clear, Urine pH 7.0, Ur Specific [place] 1.010, Urine Protein Negative, Urine Glucose (UA) Negative, Urine Ketones Trace, Urine Blood Negative, Urine Nitrate Negative, Urine Bilirubin 1+ A, Urine Urobilinogen 1.0, Ur Leukocyte Esterase Negative, Urine RBC
== END 2021-10-14 12:48 | disposition home health service (06) ==
LOC: ER 15:42 → 2ND 16:16
PROVIDERS: Admitting Provider Internal Medicine Adolescent Medicine; Emergency Provider Emergency Medicine; PCP Nurse Practitioner Family; Visit Provider Internal Medicine Adolescent Medicine
DX: J18.9 Pneumonia, unspecified organism (principal); E55.9 Vitamin D deficiency, unspecified; C15.5 Malignant neoplasm of lower third of esophagus; I48.91 Unspecified atrial fibrillation; I10 Essential (primary) hypertension; I25.10 Atherosclerotic heart disease of native coronary artery without angina pectoris; Z95.0 Presence of cardiac pacemaker; F17.210 Nicotine dependence, cigarettes, uncomplicated; J43.1 Panlobular emphysema; N39.0 Urinary tract infection, site not specified; F10.20 Alcohol dependence, uncomplicated
CPT/HCPCS: G0378; 71045; 80048; 80053; 81001; 82962; 83605; 85025; 87086; 93005; 94640; 97161; 97166; 99285; C9803; J0456; J0696; J1642; J2405; U0003; U0005